=== PATIENT | female | born 1935 | race Caucasian/White ===

== ENCOUNTER 2017-02-20 11:16 | Emergency (ER) | payer MEDICARE, OTHER, MEDICAID ==
--- NOTE | 2017-02-20 13:31 | EDM.PDOC ---
ED HPI GENERAL MEDICAL PROBLEM - General Chief Complaint: General Stated Complaint: EVAULATION FOR HALF-WAY Time Seen by Provider: 02/20/17 11:55 Source of Information: Reports: Patient, Family History Limitations: Reports: No limitations - History of Present Illness INITIAL COMMENTS - FREE TEXT/NARRATIVE: The patient presents for medical clearance for retirement admission. She lives at home with her . He has been trying to care for her along with other family members and other agencies in town. She is not doing well. 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 Dr Cheney is her doctor and he says she is not of sound mind and needs help in the retirement. She has been admitted to [facility] but she needs a medical screening exam. She has no complaints when she arrives. She has no fever, chills, cough , congestion, runny nose, chest pain, shortness of breath, abdominal pain, nausea, vomiting or dysuria. Onset: gradual Duration: Week(s): Improves with: Reports: None Worsens with: Reports: None Associated Symptoms: Reports: no other symptoms - Related Data Allergies Allergy/AdvReac Type Severity Reaction Status Date / Time No Known Allergies Allergy Verified 02/20/17 11:37 Home Meds: Home Meds Lisinopril 10 mg PO DAILY 05/26/16 [History] Pravastatin [Pravachol] 20 mg PO DAILY 05/26/16 [History] Sertraline [Zoloft] 50 mg PO DAILY 05/26/16 [History] Aspirin 81 mg PO DAILY #30 tab.chew 05/27/16 [Rx] Diltiazem [Cardizem CD] 180 mg PO DAILY #30 cap.cd 05/27/16 [Rx] Metoprolol Tartrate [Lopressor] 25 mg PO BID #30 05/27/16 [Rx] Past Medical History Cardiovascular History: Reports: High cholesterol, Hypertension, PVD Respiratory History: Reports: COPD Gastrointestinal History: Reports: Other (see below) Other Gastrointestinal History: incont of stool Genitourinary History: Reports: Other (see below) Other Genitourinary History: Incont of urine 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 OB/BYN History: Confused Musculoskeletal History: Reports: Osteoarthritis Other Neuro History: Patient confused Psychiatric History: Reports: Anxiety, Depression Other Hematologic History: Confused - Past Surgical History Other HEENT Surgeries/Procedures: Patient confused Other GI Surgeries/Procedures: Confused Other Female Surgeries/Procedures: Confused Other Endocrine Surgeries/Procedures: Confused Musculoskeletal Surgical History: Reports: Amputation Other Oncologic Surgeries/Procedures: Confused Social & Family History - Family History Family Medical History: Unobtainable Oncologic: Reports: Prostate - Tobacco Use Smoking Status *Q: Current Some Day Smoker Years of Tobacco use: 60 Packs/Tins Daily: 0.5 - Caffeine Use Caffeine Use: Reports: Coffee Caffeine Use Comment: 2 cups per day - Recreational Drug Use Recreational Drug Use: No - Living Situation & Occupation Living situation: Reports: , with spouse Occupation: retired ED ROS GENERAL - Review of Systems Review Of Systems: See Below Constitutional: Reports: no symptoms HEENT: Reports: No symptoms Respiratory: Reports: No Symptoms ED EXAM, GENERAL - Physical Exam Exam: See Below Exam Limited By: No limitations General Appearance: alert, no apparent distress Ears: normal external exam Nose: normal inspection Head: atraumatic, normocephalic Neck: normal inspection Respiratory/Chest: no respiratory distress, lungs clear, normal breath sounds Cardiovascular: regular rate, rhythm, no edema, no murmur GI/Abdominal: soft, non tender, no organomegaly, no mass Back Exam: normal inspection Extremities: normal inspection Neurological: alert, oriented, no motor/sensory deficits Course - Vital Signs Last Recorded V/S: Last Vital Signs Temp 97.5 F 02/20/17 11:38 Pulse 78 02/20/17 11:38 Resp 16 02/20/17 11:38 BP 195/85 H 02/20/17 11:38 Pulse Ox 97 02/20/17 11:38 - Orders/Labs/Meds Orders: Active Orders 24 hr Category Date Time Status Cardiac Monitoring [RC] . DIRECTED Care 02/20/17 12:07 Active Labs: Laboratory Tests 02/20/17 02/20/17 02/20/17 Range/Units 12:26 12:26 13:40 WBC 6.37 (3.98-10.04) K/mm3 RBC 5.49 H (3.98-5.22) M/mm3 Hgb 17.4 H (11.2-15.7) gm/L Hct 52.3 H (34.1-44.9) % MCV 95.3 H (79.4-94.8) fl MCH 31.7 (25.6-32.2) pg MCHC 33.3 (32.2-35.5) g/dl RDW Std Deviation 48.3 H (36.4-46.3) fL Plt Count 236 (182-369) K/mm3 MPV 11.2 (9.4-12.3) fl Neut % (Auto) 64.6 (34.0-71.1) % Lymph % (Auto) 28.9 (19.3-51.7) % [place] % (Auto) 4.7 (4.7-12.5) % Eos % (Auto) 1.4 (0.7-5.8) Baso % (Auto) 0.2 (0.1-1.2) % Neut # (Auto) 4.12 (1.56-6.13) K/mm3 Lymph # (Auto) 1.84 (1.18-3.74) K/mm3 [place] # (Auto) 0.30 (0.24-0.36) K/mm3 Eos # (Auto) 0.09 (0.04-0.36) K/mm3 Baso # (Auto) 0.01 (0.01-0.08) K/mm3 Sodium 140 (136-145) mEq/L Potassium 4.0 (3.5-5.1) mEq/L Chloride 103 (98-107) mEq/L Carbon Dioxide 29 (21-32) mEq/L Anion Gap 12.0 (5-15) BUN 10 (7-18) mg/dL Creatinine 0.7 (0.55-1.02) mg/dL Est Cr Clr Drug Dosing 51.54 mL/min Estimated GFR (MDRD) > 60 (>60) mL/min BUN/Creatinine Ratio 14.3 (14-18) Glucose 124 H (83-115) mg/dL Calcium 9.3 (8.5-10.1) mg/dL Total Bilirubin 0.5 (0.2-1.0) mg/dL AST 16 (15-37) U/L ALT 18 (14-59) U/L Alkaline Phosphatase 118 H (46-116) U/L Total Protein 7.3 (6.4-8.2) g/dl Albumin 3.6 (3.4-5.0) g/dl Globulin 3.7 gm/dL Albumin/Globulin Ratio 1.0 (1-2) Urine Color Yellow (Yellow) Urine Appearance Clear (Clear) Urine pH 6.0 (5.0-8.0) Ur Specific [place] 1.025 (1.005-1.030) Urine Protein Negative (Negative) Urine Glucose (UA) Negative (Negative) Urine Ketones Negative (Negative) Urine Occult Blood Negative (Negative) Urine Nitrite Negative (Negative) Urine Bilirubin Negative (Negative) Urine Urobilinogen 0.2 (0.2-1.0) Ur Leukocyte Esterase Negative (Negative) Urine RBC 0-5 (0-5) /hpf Urine WBC 0-5 (0-5) /hpf Ur Squamous Epith Cells 0-5 (0-5) /hpf Urine Bacteria Few (FEW) /hpf Urine Mucus Not seen (FEW) /hpf Ethyl Alcohol 0.00 (0.00) gm% - Re-Assessments/Exams Free Text/Narrative Re-Assessment/Exam: 02/20/17 13:55 I ordered some labs. Her CBC and CMP look good. Her ETOH is negative. 02/20/17 14:21 Her UA was negative. She ate some lunch here. I will discharge her to the retirement. Departure - Departure Time of Disposition: 14:25 Disposition: DC/Tfer to Intermediate Care 63 Condition: good Clinical Impression: Failure to thrive in adult Referrals: Eduar Cheney MD [Primary Care Provider] - Forms: ED Department Discharge Additional Instructions: A medical screening exam was done and your labs look good. You are medically cleared to go to [facility]. Please return if you have any other complaints or follow up with Dr Cheney. - My Orders Last 24 Hours: My Active Orders 02/20/17 12:07 Cardiac Monitoring [RC] . DIRECTED - Assessment/Plan Last 24 Hours: My Active Orders 02/20/17 12:07 Cardiac Monitoring [RC] . DIRECTED
[2017-02-20 14:44] VITALS: BP 144/81
== END 2017-02-20 14:45 ==
LOC: JD.ED 11:16
DX: Z02.2 Encounter for examination for admission to residential institution (principal); I10 Essential (primary) hypertension; E78.00 Pure hypercholesterolemia, unspecified; J44.9 Chronic obstructive pulmonary disease, unspecified; R15.9 Full incontinence of feces; R32 Unspecified urinary incontinence; M19.90 Unspecified osteoarthritis, unspecified site; R41.0 Disorientation, unspecified; F32.9 Major depressive disorder, single episode, unspecified; F41.9 Anxiety disorder, unspecified; Z79.82 Long term (current) use of aspirin; Z79.899 Other long term (current) drug therapy; F17.200 Nicotine dependence, unspecified, uncomplicated; Z89.611 Acquired absence of right leg above knee; R62.7 Adult failure to thrive
CPT/HCPCS: 36415; 80053; 81001; 85025; 99284; G0480; P9612; 99282; 99285-25

== ENCOUNTER 2017-05-22 11:23 | Emergency (ER) | payer MEDICARE, OTHER, MEDICAID ==
[2017-05-22 11:32] VITALS: BP 169/92
[2017-05-22] MEDS ORDERED: Aspirin 81 MG Tab.Chew PO ONE (11:41)
--- NOTE | 2017-05-22 12:18 | EDM.PDOC ---
ED HPI GENERAL MEDICAL PROBLEM - General Chief Complaint: Chest Pain Stated Complaint: [facility] Time Seen by Provider: 05/22/17 11:24 - History of Present Illness INITIAL COMMENTS - FREE TEXT/NARRATIVE: The patient is a 81-year-old female, [facility] resident, with a history of dementia, who was brought in by ambulance for an episode of chest pain. The patient does not recall ever having had chest pain. However according to EMS report, the patient was complaining of some chest pain this morning which prompted her being brought to the emergency department for evaluation. The patient states that she feels completely fine. She denies chest pain. No shortness of breath. No abdominal pain, nausea, vomiting, recent illness, recent injury. No lower extremity pain or swelling. She has no complaints and says she feels fine. However, she does have a history of dementia and while she is answering questions here appropriately I don't know how good her short-term memory is. Unable to obtain further history from the patient at this time due to this. - Related Data Allergies Allergy/AdvReac Type Severity Reaction Status Date / Time No Known Allergies Allergy Verified 02/20/17 11:37 Home Meds: Home Meds Lisinopril 10 mg PO DAILY 05/26/16 [History] Aspirin 81 mg PO DAILY #30 tab.chew 05/27/16 [Rx] Diltiazem [Cardizem CD] 180 mg PO DAILY #30 cap.cd 05/27/16 [Rx] Metoprolol Tartrate [Lopressor] 25 mg PO BID #30 05/27/16 [Rx] Acetaminophen [Tylenol Extra Strength] 1,000 mg PO Q6H PRN 05/22/17 [History] Carbamide Peroxide [Debrox 6.5% Otic Soln] 1 drop EARBOTH BID 05/22/17 [History] Lactose-Reduced Food [Boost] 2 oz PO TID 05/22/17 [History] Memantine HCl [Namenda] 5 mg PO BEDTIME 05/22/17 [History] Omeprazole 20 mg PO DAILY 05/22/17 [History] Past Medical History Cardiovascular History: Reports: High Cholesterol, Hypertension, PVD Respiratory History: Reports: COPD Gastrointestinal History: Reports: Other (See Below) Other Gastrointestinal History: incont of stool Genitourinary History: Reports: Other (See Below) Other Genitourinary History: Incont of urine 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 Musculoskeletal History: Reports: Osteoarthritis Other Neuro History: Patient confused Psychiatric History: Reports: Anxiety, Depression Other Hematologic History: Confused - Past Surgical History Other HEENT Surgeries/Procedures: Patient confused Other Endocrine Surgeries/Procedures: Confused Musculoskeletal Surgical History: Reports: Amputation Other Oncologic Surgeries/Procedures: Confused Social & Family History - Family History Family Medical History: Unobtainable Oncologic: Reports: Prostate - Tobacco Use Smoking Status *Q: Current Status Unknown Years of Tobacco use: 60 Packs/Tins Daily: 0.5 Second Hand Smoke Exposure: No - Caffeine Use Caffeine Use: Reports: None Caffeine Use Comment: 2 cups per day - Recreational Drug Use Recreational Drug Use: No - Living Situation & Occupation Living situation: Reports: , with Spouse Occupation: Retired ED ROS GENERAL - Review of Systems Review Of Systems: Unable To Obtain (may be limited by alzheimer's. patient answers questions but I'm not sure she remembers if she's had recent symptoms) Constitutional: Denies: Fever HEENT: Reports: No Symptoms Respiratory: Denies: Cough Cardiovascular: Denies: Edema Endocrine: Reports: No Symptoms GI/Abdominal: Denies: Abdominal Pain, Nausea Musculoskeletal: Reports: No Symptoms Skin: Reports: No Symptoms Neurological: Denies: Syncope ED EXAM, GENERAL - Physical Exam Exam: See Below Exam Limited By: No Limitations General Appearance: Alert, WD/WN, No Apparent Distress, Other (pleasantly confused) Eye Exam: Bilateral Eye: PERRL Ears: Normal External Exam Nose: Normal Inspection, Normal Mucosa, No Blood Throat/Mouth: Normal Inspection, Normal Voice, No Airway Compromise Head: Atraumatic, Normocephalic Neck: Normal Inspection, Supple, Non-Tender Respiratory/Chest: No Respiratory Distress, Lungs Clear, Normal Breath Sounds, No Accessory Muscle Use, Chest Non-Tender Cardiovascular: Normal Peripheral Pulses, Regular Rate, Rhythm, No Edema, No Murmur Peripheral Pulses: 2+: Radial (L) GI/Abdominal: Soft, Non-Tender, No Distention. No: Rebound Extremities: Other (R AKA) Neurological: Alert, No Motor/Sensory Deficits, Other (pleasantly confused, but answers questions appropriately) Psychiatric: Normal Affect, Normal Mood Skin Exam: Warm, Dry, Intact, Normal Color, No Rash Course - Vital Signs Last Recorded V/S: Last Vital Signs Temp 36.3 C 05/22/17 11:30 Pulse 84 05/22/17 11:30 Resp 18 05/22/17 11:30 BP 169/92 H 05/22/17 11:30 Pulse Ox 93 L 05/22/17 11:30 - Orders/Labs/Meds Orders: Active Orders 24 hr Category Date Time Status EKG 12 Lead [EKG Documentation Completion] [RC] STAT Care 05/22/17 11:55 Active Oxygen Therapy Adult [Oxygen Therapy] [RC] ASDIRECTED Care 05/22/17 11:55 Active Chest 1V Frontal [CR] Stat Exams 05/22/17 11:41 Taken Labs: Laboratory Tests 05/22/17 05/22/17 05/22/17 Range/Units 12:00 12:00 14:40 WBC 7.69 (3.98-10.04) K/mm3 RBC 4.95 (3.98-5.22) M/mm3 Hgb 14.9 (11.2-15.7) gm/L Hct 45.0 H (34.1-44.9) % MCV 90.9 (79.4-94.8) fl MCH 30.1 (25.6-32.2) pg MCHC 33.1 (32.2-35.5) g/dl RDW Std Deviation 41.1 (36.4-46.3) fL Plt Count 250 (182-369) K/mm3 MPV 11.6 (9.4-12.3) fl Neut % (Auto) 75.7 H (34.0-71.1) % Lymph % (Auto) 18.2 L (19.3-51.7) % [place] % (Auto) 4.3 L (4.7-12.5) % Eos % (Auto) 1.4 (0.7-5.8) Baso % (Auto) 0.3 (0.1-1.2) % Neut # (Auto) 5.82 (1.56-6.13) K/mm3 Lymph # (Auto) 1.40 (1.18-3.74) K/mm3 [place] # (Auto) 0.33 (0.24-0.36) K/mm3 Eos # (Auto) 0.11 (0.04-0.36) K/mm3 Baso # (Auto) 0.02 (0.01-0.08) K/mm3 Sodium 135 L (136-145) mEq/L Potassium 4.4 (3.5-5.1) mEq/L Chloride 101 (98-107) mEq/L Carbon Dioxide 32 (21-32) mEq/L Anion Gap 6.4 (5-15) BUN 17 (7-18) mg/dL Creatinine 0.9 (0.55-1.02) mg/dL Est Cr Clr Drug Dosing 43.77 mL/min Estimated GFR (MDRD) > 60 (>60) mL/min BUN/Creatinine Ratio 18.9 H (14-18) Glucose 197 H (83-115) mg/dL Calcium 9.4 (8.5-10.1) mg/dL Total Bilirubin 0.2 (0.2-1.0) mg/dL AST 16 (15-37) U/L ALT 21 (14-59) U/L Alkaline Phosphatase 112 (46-116) U/L Troponin I < 0.017 0.021 (0.00-0.056) ng/mL Total Protein 7.2 (6.4-8.2) g/dl Albumin 3.4 (3.4-5.0) g/dl Globulin 3.8 gm/dL Albumin/Globulin Ratio 0.9 L (1-2) Meds: Medications Discontinued Medications Generic Name Dose Route Start Last Admin Trade Name Freq PRN Reason Stop Dose Admin Aspirin 324 mg 05/22/17 11:41 05/22/17 12:02 Aspirin PO 05/22/17 11:42 324 mg ONETIME ONE Administration - Re-Assessments/Exams Free Text/Narrative Re-Assessment/Exam: 05/22/17 13:45 EKG shows normal sinus rhythm, T-wave inversions in leads 2, 3, and aVL, also has subtle ST depression in the lateral leads, no ST elevation. These changes are new compared to prior. Her first troponin is negative. Repeat EKG was similar, no ST elevation. Patient continues to be chest pain-free. We will observe her in the emergency department and continue serial troponins and EKGs for now. 05/22/17 15:21 Patient has been asymptomatic throughout ED stay. Repeat trop neg. Will [facility] with plan for PCP f/u for further care. Departure - Departure Time of Disposition: 15:22 Disposition: Home, Self-Care 01 Clinical Impression: Chest pain Qualifiers: Chest pain type: unspecified Qualified Code(s): R07.9 - Chest pain, unspecified Forms: ED Department Discharge Additional Instructions: 1. Follow up with your primary doctor within a week 2. Return to the Emergency Department if you have any further chest pain, shortness of breath, or other concerning symptoms - My Orders Last 24 Hours: My Active Orders 05/22/17 11:41 Chest 1V Frontal [CR] Stat 05/22/17 11:55 EKG 12 Lead [EKG Documentation Completion] [RC] STAT Oxygen Therapy Adult [Oxygen Therapy] [RC] ASDIRECTED - Assessment/Plan Last 24 Hours: My Active Orders 05/22/17 11:41 Chest 1V Frontal [CR] Stat 05/22/17 11:55 EKG 12 Lead [EKG Documentation Completion] [RC] STAT Oxygen Therapy Adult [Oxygen Therapy] [RC] ASDIRECTED
--- NOTE | 2017-05-23 12:13 | CR ---
Chest: Portable view of the chest was obtained. Comparison: Previous chest x-ray of 07/07/16. Heart size and mediastinum are within normal limits. Lungs are clear with no acute infiltrates. Surgical clips are noted over the right upper lung. Bony structures are osteopenic. Impression: 1. Incidental findings. Nothing acute is identified on portable chest x-ray. Diagnostic code #2
== END 2017-05-22 15:30 | disposition home or self-care (01) ==
LOC: SUPCPDRO 11:23 → JD.ED 11:23
DX: R07.9 Chest pain, unspecified (principal); I10 Essential (primary) hypertension; E78.00 Pure hypercholesterolemia, unspecified; M19.90 Unspecified osteoarthritis, unspecified site; Z79.82 Long term (current) use of aspirin; Z79.899 Other long term (current) drug therapy
CPT/HCPCS: 36415; 71010; 80053; 84484; 85025; 93005; 99285; A9270; 99283

== ENCOUNTER 2017-05-30 10:30 | Emergency (ER) | payer MEDICARE, OTHER, MEDICAID ==
[2017-05-30 10:41] VITALS: BP 160/52
[2017-05-30] MEDS ORDERED: Sodium Chloride 0.9% 10 ML Syringe FLUSH PRN (10:54)
--- NOTE | 2017-05-30 10:56 | EDM.PDOC ---
ED HPI GENERAL MEDICAL PROBLEM - General Chief Complaint: Chest Pain Stated Complaint: [facility] Time Seen by Provider: 05/30/17 10:45 Source of Information: Reports: Patient, RN Notes Reviewed - History of Present Illness INITIAL COMMENTS - FREE TEXT/NARRATIVE: 81 year old female sent here from detention. Had short episode of lower achy chest discomfort radiating toward R shoulder. She was given ntg times 3. I did not hear from EMS how she was on their arrival to [place] but on arrival to ED her pain was gone. She denies abd pain, nauea or vomtiing. Not coughing, no fever or chills. She does have hx of Htn, a fib., COPD, mild dementia. Chest Pain Score (Numeric/FACES): 0 - Related Data Allergies Allergy/AdvReac Type Severity Reaction Status Date / Time No Known Allergies Allergy Verified 05/30/17 10:37 Home Meds: Home Meds Lisinopril 10 mg PO DAILY 05/26/16 [History] Aspirin 81 mg PO DAILY #30 tab.chew 05/27/16 [Rx] Diltiazem [Cardizem CD] 180 mg PO DAILY #30 cap.cd 05/27/16 [Rx] Metoprolol Tartrate [Lopressor] 25 mg PO BID #30 05/27/16 [Rx] Acetaminophen [Tylenol Extra Strength] 1,000 mg PO Q6H PRN 05/22/17 [History] Carbamide Peroxide [Debrox 6.5% Otic Soln] 1 drop EARBOTH BID 05/22/17 [History] Lactose-Reduced Food [Boost] 2 oz PO TID 05/22/17 [History] Memantine HCl [Namenda] 5 mg PO BEDTIME 05/22/17 [History] Omeprazole 20 mg PO DAILY 05/22/17 [History] Past Medical History Cardiovascular History: Reports: High Cholesterol, Hypertension, PVD Respiratory History: Reports: COPD Gastrointestinal History: Reports: Other (See Below) Other Gastrointestinal History: incont of stool Genitourinary History: Reports: Other (See Below) Other Genitourinary History: Incont of urine 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 Musculoskeletal History: Reports: Osteoarthritis Other Neuro History: Patient confused Psychiatric History: Reports: Anxiety, Depression Other Hematologic History: Confused - Past Surgical History Other HEENT Surgeries/Procedures: Patient confused Other Endocrine Surgeries/Procedures: Confused Musculoskeletal Surgical History: Reports: Amputation Other Oncologic Surgeries/Procedures: Confused Social & Family History - Family History Family Medical History: Unobtainable Oncologic: Reports: Prostate - Tobacco Use Smoking Status *Q: Unknown Ever Smoked Years of Tobacco use: 60 Packs/Tins Daily: 0.5 Second Hand Smoke Exposure: No - Caffeine Use Caffeine Use: Reports: None Caffeine Use Comment: 2 cups per day - Recreational Drug Use Recreational Drug Use: No - Living Situation & Occupation Living situation: Reports: , with Spouse Occupation: Retired ED ROS GENERAL - Review of Systems Review Of Systems: See Below Constitutional: Denies: Fever, Chills, Diaphoresis HEENT: Reports: No Symptoms Respiratory: Denies: Shortness of Breath, Wheezing, Cough Cardiovascular: Reports: Chest Pain GI/Abdominal: Denies: Abdominal Pain, Nausea, Vomiting Musculoskeletal: Reports: Shoulder Pain. Denies: Arm Pain Skin: Reports: No Symptoms Neurological: Denies: Numbness, Tingling, Trouble Speaking, Weakness ED EXAM, GENERAL - Physical Exam Exam: See Below General Appearance: Alert, No Apparent Distress Eye Exam: Bilateral Eye: PERRL Throat/Mouth: Normal Inspection, Normal Oropharynx Neck: Supple Respiratory/Chest: No Respiratory Distress, Lungs Clear, Normal Breath Sounds, No Accessory Muscle Use. No: Rhonchi, Wheezing Cardiovascular: Regular Rate, Rhythm GI/Abdominal: Soft, Non-Tender Extremities: Normal Inspection, Normal Range of Motion. No: Pedal Edema, Leg Pain Neurological: Alert, Oriented, No Motor/Sensory Deficits Skin Exam: Warm, Dry, Normal Color EKG INTERPRETATION Rhythm: NSR [place]: Normal P-Wave: Present QRS: Normal ST-T: Depressed (T wave inversions III, AVF, V5 and V6.) Course - Vital Signs Last Recorded V/S: Last Vital Signs Temp 97.8 F 05/30/17 10:37 Pulse 70 05/30/17 10:37 Resp 20 05/30/17 10:37 BP 160/52 H 05/30/17 10:37 Pulse Ox 95 05/30/17 10:37 - Orders/Labs/Meds Orders: Active Orders 24 hr Category Date Time Status EKG 12 Lead [EKG Documentation Completion] [RC] STAT Care 05/30/17 10:55 Active Peripheral IV Care [RC] . DIRECTED Care 05/30/17 10:55 Active Chest 1V Frontal [CR] Stat Exams 05/30/17 10:55 Taken Sodium Chloride 0.9% [Saline Flush] Med 05/30/17 10:54 Active 10 ml FLUSH ASDIRECTED PRN Peripheral IV Insertion Adult [OM.PC] Stat Oth 05/30/17 10:55 Ordered Medication Orders Sodium Chloride (Saline Flush) 10 ml FLUSH ASDIRECTED PRN PRN Reason: Keep Vein Open Last Admin: 05/30/17 11:08 Dose: 10 ml Labs: Laboratory Tests 05/30/17 05/30/17 05/30/17 Range/Units 10:39 10:39 10:39 WBC 8.62 (3.98-10.04) K/mm3 RBC 4.92 (3.98-5.22) M/mm3 Hgb 15.0 (11.2-15.7) gm/L Hct 44.1 (34.1-44.9) % MCV 89.6 (79.4-94.8) fl MCH 30.5 (25.6-32.2) pg MCHC 34.0 (32.2-35.5) g/dl RDW Std Deviation 41.4 (36.4-46.3) fL Plt Count 272 (182-369) K/mm3 MPV 11.8 (9.4-12.3) fl Neut % (Auto) 77.5 H (34.0-71.1) % Lymph % (Auto) 15.4 L (19.3-51.7) % [place] % (Auto) 5.2 (4.7-12.5) % Eos % (Auto) 1.5 (0.7-5.8) Baso % (Auto) 0.2 (0.1-1.2) % Neut # (Auto) 6.67 H (1.56-6.13) K/mm3 Lymph # (Auto) 1.33 (1.18-3.74) K/mm3 [place] # (Auto) 0.45 H (0.24-0.36) K/mm3 Eos # (Auto) 0.13 (0.04-0.36) K/mm3 Baso # (Auto) 0.02 (0.01-0.08) K/mm3 Sodium 135 L (136-145) mEq/L Potassium 4.2 (3.5-5.1) mEq/L Chloride 98 (98-107) mEq/L Carbon Dioxide 29 (21-32) mEq/L Anion Gap 12.2 (5-15) BUN 18 (7-18) mg/dL Creatinine 0.9 (0.55-1.02) mg/dL Est Cr Clr Drug Dosing 40.09 mL/min Estimated GFR (MDRD) > 60 (>60) mL/min BUN/Creatinine Ratio 20.0 H (14-18) Glucose 206 H (83-115) mg/dL Calcium 9.2 (8.5-10.1) mg/dL Total Bilirubin 0.3 (0.2-1.0) mg/dL AST 17 (15-37) U/L ALT 24 (14-59) U/L Alkaline Phosphatase 105 (46-116) U/L Troponin I < 0.017 (0.00-0.056) ng/mL B-Natriuretic Peptide 445 H (0-100) pg/mL Total Protein 7.4 (6.4-8.2) g/dl Albumin 3.4 (3.4-5.0) g/dl Globulin 4.0 gm/dL Albumin/Globulin Ratio 0.9 L (1-2) Meds: Medications Generic Name Dose Route Start Last Admin Trade Name Freq PRN Reason Stop Dose Admin Sodium Chloride 10 ml 05/30/17 10:54 05/30/17 11:08 Saline Flush FLUSH 10 ml ASDIRECTED PRN Administration Keep Vein Open - Re-Assessments/Exams Free Text/Narrative Re-Assessment/Exam: 05/30/17 13:22 Patient continued pain free while here in the ED, trop. did come back normal, CXR good, have discharged back to the [place]. Departure - Departure Time of Disposition: 12:30 Disposition: Home, Self-Care 01 Condition: Fair Clinical Impression: Chest pain, atypical Instructions: Nonspecific Chest Pain, [id number] Referrals: Eduar Cheney MD [Primary Care Provider] - Forms: ED Department Discharge Additional Instructions: Cardiac workup today is good, EKG did not show acute findings, troponin was normal. Chest x-ray looked good. Patient has been pain-free while resting here in the ED for over 2 hours. Continue present care. Call or have her see her medical provider as needed, return to ED as needed - My Orders Last 24 Hours: My Active Orders 05/30/17 10:54 Sodium Chloride 0.9% [Saline Flush] 10 ml FLUSH ASDIRECTED PRN 05/30/17 10:55 EKG 12 Lead [EKG Documentation Completion] [RC] STAT Peripheral IV Care [RC] . DIRECTED Chest 1V Frontal [CR] Stat Peripheral IV Insertion Adult [OM.PC] Stat - Assessment/Plan Last 24 Hours: My Active Orders 05/30/17 10:54 Sodium Chloride 0.9% [Saline Flush] 10 ml FLUSH ASDIRECTED PRN 05/30/17 10:55 EKG 12 Lead [EKG Documentation Completion] [RC] STAT Peripheral IV Care [RC] . DIRECTED Chest 1V Frontal [CR] Stat Peripheral IV Insertion Adult [OM.PC] Stat
--- NOTE | 2017-05-31 06:51 | CR ---
Chest: Portable view of the chest was obtained. Comparison: Previous chest x-ray of 05/22/17. Heart size and mediastinum are within normal limits. Surgical clips are seen overlying the right upper chest. Lungs are clear with no acute infiltrates. Bony structures are grossly intact. Impression: 1. Incidental findings. Nothing acute is identified on frontal chest x-ray. Diagnostic code #2
== END 2017-05-30 14:06 | disposition home or self-care (01) ==
LOC: JD.ED 10:30
DX: R07.89 Other chest pain (principal); I10 Essential (primary) hypertension; E78.00 Pure hypercholesterolemia, unspecified; J44.9 Chronic obstructive pulmonary disease, unspecified; M19.90 Unspecified osteoarthritis, unspecified site; F41.9 Anxiety disorder, unspecified; F32.9 Major depressive disorder, single episode, unspecified; Z79.82 Long term (current) use of aspirin; Z79.899 Other long term (current) drug therapy
CPT/HCPCS: 36415; 71010; 80053; 83880; 84484; 85025; 93005; 99285; J7050; 99284

== ENCOUNTER 2019-10-31 09:02 | Inpatient (IN) | payer MEDICARE, OTHER, MEDICAID ==
[2019-10-31] MEDS ORDERED: Sodium Chloride 0.9% 1,000 ML IV ONE (09:17)
[2019-10-31] MEDS ORDERED: Sodium Chloride 0.9% 10 ML Syringe FLUSH PRN (09:17)
--- NOTE | 2019-10-31 09:39 | EDM.PDOC ---
ED HPI GENERAL MEDICAL PROBLEM - General Chief Complaint: Respiratory Problem Stated Complaint: [facility] Time Seen by Provider: 10/31/19 09:14 Source of Information: Reports: Patient, EMS, RN Notes Reviewed - History of Present Illness INITIAL COMMENTS - FREE TEXT/NARRATIVE: 84-year-old female has been brought by [facility] from shelter for evaluation of fever, dyspnea, altered mental status. The history we are obtaining is that this all became apparent this morning. At this time we do not know what her status was yesterday. Family is not present at this time to give further history. Patient does follow simple commands but is not answering questions for me to provide further history. She has hx dementia, COPD, Htn., amputationa RLE, peripheral vascular disease. 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, Other (see below) Other Treatments ASTROPHYSICS TEACHER: IV fluids - Related Data Allergies Allergy/AdvReac Type Severity Reaction Status Date / Time No Known Allergies Allergy Verified 05/30/17 10:37 Home Meds: Home Meds Lisinopril 10 mg PO DAILY 05/26/16 [History] Aspirin 81 mg PO DAILY #30 tab.chew 05/27/16 [Rx] Acetaminophen [Tylenol Extra Strength] 650 mg PO Q6H PRN 05/22/17 [History] Memantine HCl [Namenda] 5 mg PO BID 05/22/17 [History] Bisacodyl [Laxative Suppository] 10 mg RECTAL DAILY PRN 10/31/19 [History] Diltiazem [Cardizem CD] 240 mg PO DAILY 10/31/19 [History] Furosemide [Lasix] 40 mg PO DAILY 10/31/19 [History] Metoprolol Tartrate [Lopressor] 12.5 mg PO BID 10/31/19 [History] Pravastatin [Pravachol] 20 mg PO DAILY 10/31/19 [History] Sertraline [Zoloft] 50 mg PO BEDTIME 10/31/19 [History] Past Medical History Cardiovascular History: Reports: High Cholesterol, Hypertension, PVD Respiratory History: Reports: COPD Gastrointestinal History: Reports: Other (See Below) Other Gastrointestinal History: incont of stool Genitourinary History: Reports: Other (See Below) Other Genitourinary History: Incont of urine 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 SEALING 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 TANK REPAIRER History: Confused Musculoskeletal History: Reports: Osteoarthritis Other Neuro History: Patient confused Psychiatric History: Reports: Anxiety, Depression Other Hematologic History: Confused - Past Surgical History Other HEENT Surgeries/Procedures: Patient confused Other Endocrine Surgeries/Procedures: Confused Musculoskeletal Surgical History: Reports: Amputation Other Oncologic Surgeries/Procedures: Confused Social & Family History - Family History Family Medical History: Unobtainable Oncologic: Reports: Prostate - Tobacco Use Smoking Status *Q: Never Smoker - Caffeine Use Caffeine Use: Reports: None Caffeine Use Comment: 2 cups per day - Living Situation & Occupation Living situation: Reports: , with Spouse Occupation: Retired ED ROS GENERAL - Review of Systems Review Of Systems: Unable To Obtain Reason Not Obtained: Altered mental status ED EXAM, GENERAL - Physical Exam Exam: See Below Exam Limited By: Altered Mental Status General Appearance: Other (Patient is very drowsy, opens eyes when spoken to but not answering questions for me at time of initial exam) Eye Exam: Bilateral Eye: PERRL Throat/Mouth: Other (Oral mucosa very dry, patient has been mouth breathing) Head: No: Facial Swelling Neck: Supple, Other (No JVD) Respiratory/Chest: Respiratory Distress (Moderate tachypnea), Rales (Mild rales bilateral lower lung tian). No: Rhonchi, Wheezing Cardiovascular: Regular Rate, Rhythm GI/Abdominal: Soft, Tender (Mccurdy to have mild tenderness mid abdomen and left abdomen). 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, left leg not edematous warm or erythematous.) Neurological: Other (Patient very drowsy, does open eyes when spoken to but not answering questions for me, she did squeeze fingers bilateral hands on command) Skin Exam: Warm, Dry, No Rash Course - Vital Signs Last Recorded V/S: Last Vital Signs Temp 100.0 F 10/31/19 09:07 Pulse 78 10/31/19 11:40 Resp 22 H 10/31/19 11:40 BP 116/97 H 10/31/19 11:40 Pulse Ox 94 L 10/31/19 11:40 - Orders/Labs/Meds Orders: Active Orders 24 hr Category Date Time Status EKG 12 Lead [EKG Documentation Completion] [RC] STAT Care 10/31/19 09:39 Active Insert Love Catheter [Insert Urinary Catheter] [OM.PC] Care 10/31/19 11:00 Ordered Q24H Urinary Catheter Assessment [RC] ASDIRECTED Care 10/31/19 10:48 Active Chest 2V [CR] Stat Exams 10/31/19 09:18 Taken CULTURE BLOOD [BC] Stat Lab 10/31/19 09:35 Received CULTURE BLOOD [BC] Stat Lab 10/31/19 09:55 Received GLUCOSE RANDOM [CHEM] Routine Lab 10/31/19 12:10 Ordered LACTIC ACID [CHEM] Routine Lab 10/31/19 12:09 Ordered Lactated Ringers [Ringers, Lactated] 1,000 ml Med 10/31/19 10:30 Active IV ASDIRECTED Lactated Ringers [Ringers, Lactated] 1,000 ml Med 10/31/19 11:45 Active IV ASDIRECTED Sodium Chloride 0.9% [Saline Flush] Med 10/31/19 09:17 Active 10 ml FLUSH ASDIRECTED PRN Blood Culture x2 Reflex Set [OM.PC] Stat Oth 10/31/19 09:18 Ordered Saline Lock Insert [OM.PC] Stat Oth 10/31/19 09:18 Ordered Severe Sepsis Onset Time [OM.PC] Stat Oth 10/31/19 09:18 Ordered Medication Orders Lactated Ringer's (Ringers, Lactated) 1,000 mls @ 999 mls/hr IV ASDIRECTED CORRIE Last Admin: 10/31/19 10:47 Dose: 999 mls/hr Lactated Ringer's (Ringers, Lactated) 1,000 mls @ 150 mls/hr IV ASDIRECTED CORRIE Last Admin: 10/31/19 11:39 Dose: 150 mls/hr Sodium Chloride (Saline Flush) 10 ml FLUSH ASDIRECTED PRN PRN Reason: Keep Vein Open Last Admin: 10/31/19 09:31 Dose: 10 ml Labs: Laboratory Tests 10/31/19 10/31/19 10/31/19 Range/Units 09:35 09:35 09:35 WBC 16.69 H (3.98-10.04) K/mm3 RBC 5.28 H (3.98-5.22) M/mm3 Hgb 15.6 (11.2-15.7) gm/dl Hct 52.2 H (34.1-44.9) % MCV 98.9 H D (79.4-94.8) fl MCH 29.5 (25.6-32.2) pg MCHC 29.9 L (32.2-35.5) g/dl RDW Std Deviation 53.5 H (36.4-46.3) fL Plt Count 304 (182-369) K/mm3 MPV 13.9 H (9.4-12.3) fl Neutrophils % (Manual) 84 H (40-60) % Band Neutrophils % 0 (0-10) % Lymphocytes % (Manual) 16 L (20-40) % Atypical Lymphs % 0 % Monocytes % (Manual) 0 L (2-10) % Eosinophils % (Manual) 0 L (0.7-5.8) % Basophils % (Manual) 0 L (0.1-1.2) Platelet Estimate Adequate Hypochromasia 2+ moderate Target Cells 1+ slight Tear Drop Cells 1+ slight RBC Morph Comment Not Reportable PT 11.4 (9.7-12.0) SECONDS INR 1.05 Puncture Site ABG pH (7.35-7.45) ABG pCO2 (35.0-45.0) mmHg ABG pO2 (80.0-100.0) mmHg ABG HCO3 (22.0-26.0) meq/L ABG O2 Saturation (96.0-97.0) % ABG Base Excess (-2-2.0) Efrem Test A-a Gradient mmHg O2 Delivery Device Oxygen Flow Rate FiO2 (21.00-100.00) % Sodium 152 H D (136-145) mEq/L Potassium 4.0 (3.5-5.1) mEq/L Chloride 106 (98-107) mEq/L Carbon Dioxide 33 H (21-32) mEq/L Anion Gap 17.0 H (5-15) BUN 83 H D (7-18) mg/dL Creatinine 3.1 H D (0.55-1.02) mg/dL Est Cr Clr Drug Dosing 11.07 mL/min Estimated GFR (MDRD) 14 (>60) mL/min BUN/Creatinine Ratio 26.8 H (14-18) Glucose 923 H* (83-115) mg/dL Lactic Acid (0.4-2.0) mmol/L Calcium 9.6 (8.5-10.1) mg/dL Total Bilirubin 0.4 (0.2-1.0) mg/dL AST 28 (15-37) U/L ALT 35 (14-59) U/L Alkaline Phosphatase 112 (46-116) U/L C-Reactive Protein 1.8 H* (<1.0) mg/dL NT-Pro-B Natriuret Pep (0-450) pg/mL Total Protein 8.1 (6.4-8.2) g/dl Albumin 3.6 (3.4-5.0) g/dl Globulin 4.5 gm/dL Albumin/Globulin Ratio 0.8 L (1-2) Urine Color (Yellow) Urine Appearance (Clear) Urine pH (5.0-8.0) Ur Specific [place] (1.005-1.030) Urine Protein (Negative) Urine Glucose (UA) (Negative) Urine Ketones (Negative) Urine Occult Blood (Negative) Urine Nitrite (Negative) Urine Bilirubin (Negative) Urine Urobilinogen (0.2-1.0) Ur Leukocyte Esterase (Negative) Ketones (0.0-0.3) mM 10/31/19 10/31/19 10/31/19 Range/Units 09:35 09:35 09:35 WBC (3.98-10.04) K/mm3 RBC (3.98-5.22) M/mm3 Hgb (11.2-15.7) gm/dl Hct (34.1-44.9) % MCV (79.4-94.8) fl MCH (25.6-32.2) pg MCHC (32.2-35.5) g/dl RDW Std Deviation (36.4-46.3) fL Plt Count (182-369) K/mm3 MPV (9.4-12.3) fl Neutrophils % (Manual) (40-60) % Band Neutrophils % (0-10) % Lymphocytes % (Manual) (20-40) % Atypical Lymphs % % Monocytes % (Manual) (2-10) % Eosinophils % (Manual) (0.7-5.8) % Basophils % (Manual) (0.1-1.2) Platelet Estimate Hypochromasia Target Cells Tear Drop Cells RBC Morph Comment PT (9.7-12.0) SECONDS INR Puncture Site ABG pH (7.35-7.45) ABG pCO2 (35.0-45.0) mmHg ABG pO2 (80.0-100.0) mmHg ABG HCO3 (22.0-26.0) meq/L ABG O2 Saturation (96.0-97.0) % ABG Base Excess (-2-2.0) Efrem Test A-a Gradient mmHg O2 Delivery Device Oxygen Flow Rate FiO2 (21.00-100.00) % Sodium (136-145) mEq/L Potassium (3.5-5.1) mEq/L Chloride (98-107) mEq/L Carbon Dioxide (21-32) mEq/L Anion Gap (5-15) BUN (7-18) mg/dL Creatinine (0.55-1.02) mg/dL Est Cr Clr Drug Dosing mL/min Estimated GFR (MDRD) (>60) mL/min BUN/Creatinine Ratio (14-18) Glucose (83-115) mg/dL Lactic Acid 2.4 H* (0.4-2.0) mmol/L Calcium (8.5-10.1) mg/dL Total Bilirubin (0.2-1.0) mg/dL AST (15-37) U/L ALT (14-59) U/L Alkaline Phosphatase (46-116) U/L C-Reactive Protein (<1.0) mg/dL NT-Pro-B Natriuret Pep 2474 H (0-450) pg/mL Total Protein (6.4-8.2) g/dl Albumin (3.4-5.0) g/dl Globulin gm/dL Albumin/Globulin Ratio (1-2) Urine Color (Yellow) Urine Appearance (Clear) Urine pH (5.0-8.0) Ur Specific [place] (1.005-1.030) Urine Protein (Negative) Urine Glucose (UA) (Negative) Urine Ketones (Negative) Urine Occult Blood (Negative) Urine Nitrite (Negative) Urine Bilirubin (Negative) Urine Urobilinogen (0.2-1.0) Ur Leukocyte Esterase (Negative) Ketones 1.6 (0.0-0.3) mM 10/31/19 10/31/19 Range/Units 10:49 11:38 WBC (3.98-10.04) K/mm3 RBC (3.98-5.22) M/mm3 Hgb (11.2-15.7) gm/dl Hct (34.1-44.9) % MCV (79.4-94.8) fl MCH (25.6-32.2) pg MCHC (32.2-35.5) g/dl RDW Std Deviation (36.4-46.3) fL Plt Count (182-369) K/mm3 MPV (9.4-12.3) fl Neutrophils % (Manual) (40-60) % Band Neutrophils % (0-10) % Lymphocytes % (Manual) (20-40) % Atypical Lymphs % % Monocytes % (Manual) (2-10) % Eosinophils % (Manual) (0.7-5.8) % Basophils % (Manual) (0.1-1.2) Platelet Estimate Hypochromasia Target Cells Tear Drop Cells RBC Morph Comment PT (9.7-12.0) SECONDS INR Puncture Site Rt radial ABG pH 7.32 L (7.35-7.45) ABG pCO2 60.9 H (35.0-45.0) mmHg ABG pO2 83.0 (80.0-100.0) mmHg ABG HCO3 30.3 H (22.0-26.0) meq/L ABG O2 Saturation 95.6 L (96.0-97.0) % ABG Base Excess 3.0 H (-2-2.0) Efrem Test Positive A-a Gradient 213 mmHg O2 Delivery Device Simple mask Oxygen Flow Rate 8.0 FiO2 52.00 (21.00-100.00) % Sodium (136-145) mEq/L Potassium (3.5-5.1) mEq/L Chloride (98-107) mEq/L Carbon Dioxide (21-32) mEq/L Anion Gap (5-15) BUN (7-18) mg/dL Creatinine (0.55-1.02) mg/dL Est Cr Clr Drug Dosing mL/min Estimated GFR (MDRD) (>60) mL/min BUN/Creatinine Ratio (14-18) Glucose (83-115) mg/dL Lactic Acid (0.4-2.0) mmol/L Calcium (8.5-10.1) mg/dL Total Bilirubin (0.2-1.0) mg/dL AST (15-37) U/L ALT (14-59) U/L Alkaline Phosphatase (46-116) U/L C-Reactive Protein (<1.0) mg/dL NT-Pro-B Natriuret Pep (0-450) pg/mL Total Protein (6.4-8.2) g/dl Albumin (3.4-5.0) g/dl Globulin gm/dL Albumin/Globulin Ratio (1-2) Urine Color Yellow (Yellow) Urine Appearance Slt cloudy H (Clear) Urine pH 5.5 (5.0-8.0) Ur Specific [place] 1.020 (1.005-1.030) Urine Protein Negative (Negative) Urine Glucose (UA) 2+ H (Negative) Urine Ketones Negative (Negative) Urine Occult Blood Negative (Negative) Urine Nitrite Negative (Negative) Urine Bilirubin 1+ H (Negative) Urine Urobilinogen 0.2 (0.2-1.0) Ur Leukocyte Esterase Negative (Negative) Ketones (0.0-0.3) mM Meds: Medications Generic Name Dose Route Start Last Admin Trade Name Freq PRN Reason Stop Dose Admin Lactated Ringer's 1,000 mls @ 999 mls/hr 10/31/19 10:30 10/31/19 10:47 Ringers, Lactated IV 999 mls/hr ASDIRECTED CORRIE Administration Lactated Ringer's 1,000 mls @ 150 mls/hr 10/31/19 11:45 10/31/19 11:39 Ringers, Lactated IV 150 mls/hr ASDIRECTED CORRIE Administration Sodium Chloride 10 ml 10/31/19 09:17 10/31/19 09:31 Saline Flush FLUSH 10 ml ASDIRECTED PRN Administration Keep Vein Open Discontinued Medications Generic Name Dose Route Start Last Admin Trade Name Freq PRN Reason Stop Dose Admin Sodium Chloride 1,000 mls @ 999 mls/hr 10/31/19 09:17 10/31/19 09:31 Normal Saline IV 10/31/19 10:17 999 mls/hr BOLUS ONE Administration Ceftriaxone Sodium 2 gm/ 100 mls @ 200 mls/hr 10/31/19 10:27 10/31/19 10:47 Sodium Chloride IV 10/31/19 10:56 200 mls/hr ONETIME ONE Administration - Re-Assessments/Exams Free Text/Narrative Re-Assessment/Exam: 10/31/19 10:30. Pt did present with sepsis alert criteria, sepsis bundle ordered on admission. WBC did come back elevated at 16,700, 84 seg, 0 band, Na 152, K+ 4.0, anion gap 17, glucose 923, lactic acid 2.4 INR 1.05. CXR does not show pneumonia. Rocephin 2 g IV ordered. 10/31/19 12:14. reexam. Pt is more alert, vitals 127/73. 74 20 94 Now making better eye contact, patient has dementia, does not normally verbalize, followed command of squeezing fingers, heart reg rythm, lungs clear , good cap refill. UA has come back normal. No obvious etiology for infection at this time. Patient will be admitted to ICU. I discussed with family that she is at high risk for mortality with this clinical presentation. Have ordered a repeat glucose at this time. She is DNR/DNI. Departure - Departure Time of Disposition: 11:15 Disposition: Admitted As Inpatient 68 Condition: Critical Clinical Impression: Hyperglycemic hyperosmolar nonketotic coma, Renal insufficiency - Discharge Information Referrals: Eduar Cheney MD [Primary Care Provider] - Forms: ED Department Discharge ED Communication - Discussed Case With (1) Discussed Case With (1): Admitting Provider (Dr Finney, Decision to admit at about 11:00.) - My Orders Last 24 Hours: My Active Orders 10/31/19 09:17 Sodium Chloride 0.9% [Saline Flush] 10 ml FLUSH ASDIRECTED PRN 10/31/19 09:18 Chest 2V [CR] Stat Blood Culture x2 Reflex Set [OM.PC] Stat Saline Lock Insert [OM.PC] Stat Severe Sepsis Onset Time [OM.PC] Stat 10/31/19 09:35 CULTURE BLOOD [BC] Stat 10/31/19 09:39 EKG 12 Lead [EKG Documentation Completion] [RC] STAT 10/31/19 09:55 CULTURE BLOOD [BC] Stat 10/31/19 10:30 Lactated Ringers [Ringers, Lactated] 1,000 ml IV ASDIRECTED 10/31/19 10:48 Urinary Catheter Assessment [RC] ASDIRECTED 10/31/19 11:00 Insert Love Catheter [Insert Urinary Catheter] [OM.PC] Q24H 10/31/19 11:45 Lactated Ringers [Ringers, Lactated] 1,000 ml IV ASDIRECTED 10/31/19 12:09 LACTIC ACID [CHEM] Routine 10/31/19 12:10 GLUCOSE RANDOM [CHEM] Routine - Assessment/Plan Last 24 Hours: My Active Orders 10/31/19 09:17 Sodium Chloride 0.9% [Saline Flush] 10 ml FLUSH ASDIRECTED PRN 10/31/19 09:18 Chest 2V [CR] Stat Blood Culture x2 Reflex Set [OM.PC] Stat Saline Lock Insert [OM.PC] Stat Severe Sepsis Onset Time [OM.PC] Stat 10/31/19 09:35 CULTURE BLOOD [BC] Stat 10/31/19 09:39 EKG 12 Lead [EKG Documentation Completion] [RC] STAT 10/31/19 09:55 CULTURE BLOOD [BC] Stat 10/31/19 10:30 Lactated Ringers [Ringers, Lactated] 1,000 ml IV ASDIRECTED 10/31/19 10:48 Urinary Catheter Assessment [RC] ASDIRECTED 10/31/19 11:00 Insert Love Catheter [Insert Urinary Catheter] [OM.PC] Q24H 10/31/19 11:45 Lactated Ringers [Ringers, Lactated] 1,000 ml IV ASDIRECTED 10/31/19 12:09 LACTIC ACID [CHEM] Routine 10/31/19 12:10 GLUCOSE RANDOM [CHEM] Routine
[2019-10-31] MEDS ORDERED: cefTRIAXone 2 GM in Sodium Chloride 0.9% 100 ML IV ONE (10:27)
[2019-10-31] MEDS ORDERED: Lactated Ringers 1,000 ML IV SCH ×2 (10:30→11:45)
[2019-10-31] MEDS ORDERED: Sodium Chloride 0.45% 1,000 ML IV SCH ×3 (14:30→18:45)
[2019-10-31] MEDS ORDERED: Ondansetron 4 MG/2 ML SDV IV PRN (15:12)
[2019-10-31] MEDS ORDERED: Insulin Regular, Human 100 Units/ML 3 ML Vial IV ONE (15:24)
--- NOTE | 2019-10-31 15:29 | PCM.HP.2 ---
H&P History of Present Illness - General Date of Service: 10/31/19 Admit Problem/Dx: Admission Diagnosis/Problem Admission Diagnosis/Problem Hyperglycemic hyperosmolar nonketotic coma - History of Present Illness Initial Comments - Free Text/Narative: 84-year-old female with severe dementia brought in by [facility] from the long-term secondary to fever, dyspnea, altered mental status, and poor oral intake. Patient is nonverbal, therefore history was obtained from family and emergency room physician notes. Family states that 2 days ago she seemed to be fine in the evening and had a normal dinner. She was found at 8:00 this morning with the above signs and her primary care provider was contacted who recommended that she be sent to the hospital. Patient is able to follow simple commands but not able to answer questions. She has a history of dementia, COPD , hypertension, right above-knee amputation secondary to peripheral vascular disease. In the emergency room patient was found to have a temperature of 100.0 Fahrenheit, elevated white count of 16,690 with 84% segs and no bands, and anion gap of 17, lactic acid of 2.4 so a sepsis alert was ordered. Patient was given IV fluids, Rocephin, a chest x-ray was performed and an urine analysis. Chest x-ray and UA were negative. Patient was also found to have a glucose of 923, sodium of 152, bicarb of 33, ketones of 1.6. ABG: pH 3.72, PCO2 of 60.9, PO2 of 83.0, HCO3 of 30.3, O2 saturation 95.6. Consistent with hyperosmolar hyperglycemia with chronic respiratory acidosis. - Related Data Allergies/Adverse Reactions: Allergies Allergy/AdvReac Type Severity Reaction Status Date / Time No Known Allergies Allergy Verified 05/30/17 10:37 Home Medications: Home Meds Lisinopril 10 mg PO DAILY 05/26/16 [History] Aspirin 81 mg PO DAILY #30 tab.chew 05/27/16 [Rx] Acetaminophen [Tylenol Extra Strength] 650 mg PO Q6H PRN 05/22/17 [History] Memantine HCl [Namenda] 5 mg PO BID 05/22/17 [History] Bisacodyl [Laxative Suppository] 10 mg RECTAL DAILY PRN 10/31/19 [History] Diltiazem [Cardizem CD] 240 mg PO DAILY 10/31/19 [History] Furosemide [Lasix] 40 mg PO DAILY 10/31/19 [History] Metoprolol Tartrate [Lopressor] 12.5 mg PO BID 10/31/19 [History] Pravastatin [Pravachol] 20 mg PO DAILY 10/31/19 [History] Sertraline [Zoloft] 50 mg PO BEDTIME 10/31/19 [History] Past Medical History Cardiovascular History: Reports: High Cholesterol, Hypertension, PVD Respiratory History: Reports: COPD Gastrointestinal History: Reports: Other (See Below) Other Gastrointestinal History: incont of stool Genitourinary History: Reports: Other (See Below) Other Genitourinary History: Incont of urine [employer] History: Reports: Other OB/BYN History: Confused Musculoskeletal History: Reports: Osteoarthritis Other Neuro History: Patient confused Psychiatric History: Reports: Anxiety, Depression Other Hematologic History: Confused - Past Surgical History Other HEENT Surgeries/Procedures: Patient confused Other Endocrine Surgeries/Procedures: Confused Musculoskeletal Surgical History: Reports: Amputation Other Oncologic Surgeries/Procedures: Confused Social & Family History - Family History Family Medical History: Unobtainable Oncologic: Reports: Prostate - Tobacco Use Smoking Status *Q: Never Smoker - Caffeine Use Caffeine Use: Reports: None Caffeine Use Comment: 2 cups per day - Recreational Drug Use Recreational Drug Use: No - Living Situation & Occupation Living situation: Reports: , with Spouse Occupation: Retired H&P Review of Systems - Review of Systems: Review Of Systems: Unable To Obtain Reason Not Obtained: Noncommunicative Exam - Exam Exam: See Below - Vital Signs Vital Signs: Last Vital Signs Temp 100.0 F 10/31/19 09:07 Pulse 78 10/31/19 11:40 Resp 22 H 10/31/19 11:40 BP 116/97 H 10/31/19 11:40 Pulse Ox 94 L 10/31/19 11:40 Weight: 136 lb 9.6 oz - Exam Quality Assessment: Supplemental Oxygen, Urinary Catheter General: Alert HEENT: Conjunctiva Clear, Mucosa Moist & [place] Neck: Supple Lungs: Rales. No: Normal Respiratory Effort (Mild increased respiratory rate) Cardiovascular: Regular Rate, Regular Rhythm, Systolic Murmur GI/Abdominal Exam: Normal Bowel Sounds, Tender (Diffuse abdominal tenderness.). No: Guarding, Rigid, Rebound Skin: Warm, Dry Neuro Extensive - Mental Status: Opens Eyes to Commands, Slow Response to Commands, Other (Patient is nonverbal, but does follow simple commands like grabbing fingers. Patient does not let go though.) - Patient Data Lab Results Last 24 hrs: Laboratory Results - last 24 hr 10/31/19 10/31/19 10/31/19 Range/Units 09:35 09:35 09:35 WBC 16.69 H (3.98-10.04) K/mm3 RBC 5.28 H (3.98-5.22) M/mm3 Hgb 15.6 (11.2-15.7) gm/dl Hct 52.2 H (34.1-44.9) % MCV 98.9 H D (79.4-94.8) fl MCH 29.5 (25.6-32.2) pg MCHC 29.9 L (32.2-35.5) g/dl RDW Std Deviation 53.5 H (36.4-46.3) fL Plt Count 304 (182-369) K/mm3 MPV 13.9 H (9.4-12.3) fl Neutrophils % (Manual) 84 H (40-60) % Band Neutrophils % 0 (0-10) % Lymphocytes % (Manual) 16 L (20-40) % Atypical Lymphs % 0 % Monocytes % (Manual) 0 L (2-10) % Eosinophils % (Manual) 0 L (0.7-5.8) % Basophils % (Manual) 0 L (0.1-1.2) Platelet Estimate Adequate Hypochromasia 2+ moderate Target Cells 1+ slight Tear Drop Cells 1+ slight RBC Morph Comment Not Reportable PT 11.4 (9.7-12.0) SECONDS INR 1.05 Puncture Site ABG pH (7.35-7.45) ABG pCO2 (35.0-45.0) mmHg ABG pO2 (80.0-100.0) mmHg ABG HCO3 (22.0-26.0) meq/L ABG O2 Saturation (96.0-97.0) % ABG Base Excess (-2-2.0) Efrem Test A-a Gradient mmHg O2 Delivery Device Oxygen Flow Rate FiO2 (21.00-100.00) % Sodium 152 H D (136-145) mEq/L Potassium 4.0 (3.5-5.1) mEq/L Chloride 106 (98-107) mEq/L Carbon Dioxide 33 H (21-32) mEq/L Anion Gap 17.0 H (5-15) BUN 83 H D (7-18) mg/dL Creatinine 3.1 H D (0.55-1.02) mg/dL Est Cr Clr Drug Dosing 11.07 mL/min Estimated GFR (MDRD) 14 (>60) mL/min BUN/Creatinine Ratio 26.8 H (14-18) Glucose 923 H* (83-115) mg/dL Serum Osmolality (280-300) mosm/kg Lactic Acid (0.4-2.0) mmol/L Calcium 9.6 (8.5-10.1) mg/dL Magnesium (1.8-2.4) mg/dl Total Bilirubin 0.4 (0.2-1.0) mg/dL AST 28 (15-37) U/L ALT 35 (14-59) U/L Alkaline Phosphatase 112 (46-116) U/L C-Reactive Protein 1.8 H* (<1.0) mg/dL NT-Pro-B Natriuret Pep (0-450) pg/mL Total Protein 8.1 (6.4-8.2) g/dl Albumin 3.6 (3.4-5.0) g/dl Globulin 4.5 gm/dL Albumin/Globulin Ratio 0.8 L (1-2) Urine Color (Yellow) Urine Appearance (Clear) Urine pH (5.0-8.0) Ur Specific [place] (1.005-1.030) Urine Protein (Negative) Urine Glucose (UA) (Negative) Urine Ketones (Negative) Urine Occult Blood (Negative) Urine Nitrite (Negative) Urine Bilirubin (Negative) Urine Urobilinogen (0.2-1.0) Ur Leukocyte Esterase (Negative) Ketones (0.0-0.3) mM 10/31/19 10/31/19 10/31/19 Range/Units 09:35 09:35 09:35 WBC (3.98-10.04) K/mm3 RBC (3.98-5.22) M/mm3 Hgb (11.2-15.7) gm/dl Hct (34.1-44.9) % MCV (79.4-94.8) fl MCH (25.6-32.2) pg MCHC (32.2-35.5) g/dl RDW Std Deviation (36.4-46.3) fL Plt Count (182-369) K/mm3 MPV (9.4-12.3) fl Neutrophils % (Manual) (40-60) % Band Neutrophils % (0-10) % Lymphocytes % (Manual) (20-40) % Atypical Lymphs % % Monocytes % (Manual) (2-10) % Eosinophils % (Manual) (0.7-5.8) % Basophils % (Manual) (0.1-1.2) Platelet Estimate Hypochromasia Target Cells Tear Drop Cells RBC Morph Comment PT (9.7-12.0) SECONDS INR Puncture Site ABG pH (7.35-7.45) ABG pCO2 (35.0-45.0) mmHg ABG pO2 (80.0-100.0) mmHg ABG HCO3 (22.0-26.0) meq/L ABG O2 Saturation (96.0-97.0) % ABG Base Excess (-2-2.0) Efrem Test A-a Gradient mmHg O2 Delivery Device Oxygen Flow Rate FiO2 (21.00-100.00) % Sodium (136-145) mEq/L Potassium (3.5-5.1) mEq/L Chloride (98-107) mEq/L Carbon Dioxide (21-32) mEq/L Anion Gap (5-15) BUN (7-18) mg/dL Creatinine (0.55-1.02) mg/dL Est Cr Clr Drug Dosing mL/min Estimated GFR (MDRD) (>60) mL/min BUN/Creatinine Ratio (14-18) Glucose (83-115) mg/dL Serum Osmolality (280-300) mosm/kg Lactic Acid 2.4 H* (0.4-2.0) mmol/L Calcium (8.5-10.1) mg/dL Magnesium (1.8-2.4) mg/dl Total Bilirubin (0.2-1.0) mg/dL AST (15-37) U/L ALT (14-59) U/L Alkaline Phosphatase (46-116) U/L C-Reactive Protein (<1.0) mg/dL NT-Pro-B Natriuret Pep 2474 H (0-450) pg/mL Total Protein (6.4-8.2) g/dl Albumin (3.4-5.0) g/dl Globulin gm/dL Albumin/Globulin Ratio (1-2) Urine Color (Yellow) Urine Appearance (Clear) Urine pH (5.0-8.0) Ur Specific [place] (1.005-1.030) Urine Protein (Negative) Urine Glucose (UA) (Negative) Urine Ketones (Negative) Urine Occult Blood (Negative) Urine Nitrite (Negative) Urine Bilirubin (Negative) Urine Urobilinogen (0.2-1.0) Ur Leukocyte Esterase (Negative) Ketones 1.6 (0.0-0.3) mM 10/31/19 10/31/19 10/31/19 Range/Units 10:49 11:38 12:20 WBC (3.98-10.04) K/mm3 RBC (3.98-5.22) M/mm3 Hgb (11.2-15.7) gm/dl Hct (34.1-44.9) % MCV (79.4-94.8) fl MCH (25.6-32.2) pg MCHC (32.2-35.5) g/dl RDW Std Deviation (36.4-46.3) fL Plt Count (182-369) K/mm3 MPV (9.4-12.3) fl Neutrophils % (Manual) (40-60) % Band Neutrophils % (0-10) % Lymphocytes % (Manual) (20-40) % Atypical Lymphs % % Monocytes % (Manual) (2-10) % Eosinophils % (Manual) (0.7-5.8) % Basophils % (Manual) (0.1-1.2) Platelet Estimate Hypochromasia Target Cells Tear Drop Cells RBC Morph Comment PT (9.7-12.0) SECONDS INR Puncture Site Rt radial ABG pH 7.32 L (7.35-7.45) ABG pCO2 60.9 H (35.0-45.0) mmHg ABG pO2 83.0 (80.0-100.0) mmHg ABG HCO3 30.3 H (22.0-26.0) meq/L ABG O2 Saturation 95.6 L (96.0-97.0) % ABG Base Excess 3.0 H (-2-2.0) Efrem Test Positive A-a Gradient 213 mmHg O2 Delivery Device Simple mask Oxygen Flow Rate 8.0 FiO2 52.00 (21.00-100.00) % Sodium (136-145) mEq/L Potassium (3.5-5.1) mEq/L Chloride (98-107) mEq/L Carbon Dioxide (21-32) mEq/L Anion Gap (5-15) BUN (7-18) mg/dL Creatinine (0.55-1.02) mg/dL Est Cr Clr Drug Dosing mL/min Estimated GFR (MDRD) (>60) mL/min BUN/Creatinine Ratio (14-18) Glucose 767 H* (83-115) mg/dL Serum Osmolality (280-300) mosm/kg Lactic Acid (0.4-2.0) mmol/L Calcium (8.5-10.1) mg/dL Magnesium (1.8-2.4) mg/dl Total Bilirubin (0.2-1.0) mg/dL AST (15-37) U/L ALT (14-59) U/L Alkaline Phosphatase (46-116) U/L C-Reactive Protein (<1.0) mg/dL NT-Pro-B Natriuret Pep (0-450) pg/mL Total Protein (6.4-8.2) g/dl Albumin (3.4-5.0) g/dl Globulin gm/dL Albumin/Globulin Ratio (1-2) Urine Color Yellow (Yellow) Urine Appearance Slt cloudy H (Clear) Urine pH 5.5 (5.0-8.0) Ur Specific [place] 1.020 (1.005-1.030) Urine Protein Negative (Negative) Urine Glucose (UA) 2+ H (Negative) Urine Ketones Negative (Negative) Urine Occult Blood Negative (Negative) Urine Nitrite Negative (Negative) Urine Bilirubin 1+ H (Negative) Urine Urobilinogen 0.2 (0.2-1.0) Ur Leukocyte Esterase Negative (Negative) Ketones (0.0-0.3) mM 10/31/19 10/31/19 10/31/19 Range/Units 14:11 14:11 14:11 WBC (3.98-10.04) K/mm3 RBC (3.98-5.22) M/mm3 Hgb (11.2-15.7) gm/dl Hct (34.1-44.9) % MCV (79.4-94.8) fl MCH (25.6-32.2) pg MCHC (32.2-35.5) g/dl RDW Std Deviation (36.4-46.3) fL Plt Count (182-369) K/mm3 MPV (9.4-12.3) fl Neutrophils % (Manual) (40-60) % Band Neutrophils % (0-10) % Lymphocytes % (Manual) (20-40) % Atypical Lymphs % % Monocytes % (Manual) (2-10) % Eosinophils % (Manual) (0.7-5.8) % Basophils % (Manual) (0.1-1.2) Platelet Estimate Hypochromasia Target Cells Tear Drop Cells RBC Morph Comment PT (9.7-12.0) SECONDS INR Puncture Site ABG pH (7.35-7.45) ABG pCO2 (35.0-45.0) mmHg ABG pO2 (80.0-100.0) mmHg ABG HCO3 (22.0-26.0) meq/L ABG O2 Saturation (96.0-97.0) % ABG Base Excess (-2-2.0) Efrem Test A-a Gradient mmHg O2 Delivery Device Oxygen Flow Rate FiO2 (21.00-100.00) % Sodium 153 H (136-145) mEq/L Potassium 3.5 (3.5-5.1) mEq/L Chloride 111 H (98-107) mEq/L Carbon Dioxide 31 (21-32) mEq/L Anion Gap 14.5 (5-15) BUN 74 H (7-18) mg/dL Creatinine 2.5 H (0.55-1.02) mg/dL Est Cr Clr Drug Dosing 14.35 mL/min Estimated GFR (MDRD) 18 (>60) mL/min BUN/Creatinine Ratio 29.6 H (14-18) Glucose 842 H* (83-115) mg/dL Serum Osmolality 390 H (280-300) mosm/kg Lactic Acid 1.9 (0.4-2.0) mmol/L Calcium 8.3 L (8.5-10.1) mg/dL Magnesium 2.5 H (1.8-2.4) mg/dl Total Bilirubin (0.2-1.0) mg/dL AST (15-37) U/L ALT (14-59) U/L Alkaline Phosphatase (46-116) U/L C-Reactive Protein (<1.0) mg/dL NT-Pro-B Natriuret Pep (0-450) pg/mL Total Protein (6.4-8.2) g/dl Albumin (3.4-5.0) g/dl Globulin gm/dL Albumin/Globulin Ratio (1-2) Urine Color (Yellow) Urine Appearance (Clear) Urine pH (5.0-8.0) Ur Specific [place] (1.005-1.030) Urine Protein (Negative) Urine Glucose (UA) (Negative) Urine Ketones (Negative) Urine Occult Blood (Negative) Urine Nitrite (Negative) Urine Bilirubin (Negative) Urine Urobilinogen (0.2-1.0) Ur Leukocyte Esterase (Negative) Ketones (0.0-0.3) mM Result Diagrams: 10/31/19 09:35 10/31/19 18:50 Problem List Initiated/Reviewed/Updated: Yes Orders Last 24hrs: Active Orders 24 hr Category Date Time Status Patient Status [ADT] Routine ADT 10/31/19 13:05 Active Antiembolic Devices [RC] PER UNIT ROUTINE Care 10/31/19 15:13 Active Blood Glucose Check, Bedside [RC] Q1H Care 10/31/19 14:01 Active EKG 12 Lead [EKG Documentation Completion] [RC] STAT Care 10/31/19 09:39 Active Insert Love Catheter [Insert Urinary Catheter] [OM.PC] Care 10/31/19 11:00 Ordered Q24H Oxygen Therapy [RC] PRN Care 10/31/19 15:12 Ordered Up With Assistance [RC] ASDIRECTED Care 10/31/19 15:12 Ordered Urinary Catheter Assessment [RC] ASDIRECTED Care 10/31/19 10:48 Active VTE/DVT Education [RC] PER UNIT ROUTINE Care 10/31/19 15:12 Ordered Vital Signs [RC] Q4H Care 10/31/19 15:12 Active Nothing per Oral Now Diet [DIET] Diet 10/31/19 Dinner Active Chest 2V [CR] Stat Exams 10/31/19 09:18 Taken BASIC METABOLIC PANEL,BMP [CHEM] Q4H Lab 10/31/19 16:15 Ordered BASIC METABOLIC PANEL,BMP [CHEM] Q4H Lab 10/31/19 20:15 Ordered BASIC METABOLIC PANEL,BMP [CHEM] Q4H Lab 11/01/19 00:15 Ordered BASIC METABOLIC PANEL,BMP [CHEM] Q4H Lab 11/01/19 04:15 Ordered CBC WITH AUTO DIFF [HEME] AM Lab 11/01/19 05:11 Ordered CBC WITH AUTO DIFF [HEME] AM Lab 11/02/19 05:11 Ordered CBC WITH AUTO DIFF [HEME] AM Lab 11/03/19 05:11 Ordered CBC WITH AUTO DIFF [HEME] AM Lab 11/04/19 05:11 Ordered CMP [COMPREHENSIVE METABOLIC PN,CMP] [CHEM] AM Lab 11/01/19 05:11 Ordered CMP [COMPREHENSIVE METABOLIC PN,CMP] [CHEM] AM Lab 11/02/19 05:11 Ordered CMP [COMPREHENSIVE METABOLIC PN,CMP] [CHEM] AM Lab 11/03/19 05:11 Ordered CMP [COMPREHENSIVE METABOLIC PN,CMP] [CHEM] AM Lab 11/04/19 05:11 Ordered CULTURE BLOOD [BC] Stat Lab 10/31/19 09:35 Received CULTURE BLOOD [BC] Stat Lab 10/31/19 09:55 Received LACTIC ACID [CHEM] Routine Lab 10/31/19 12:09 Ordered MAGNESIUM [CHEM] AM Lab 11/01/19 05:11 Ordered MAGNESIUM [CHEM] AM Lab 11/02/19 05:11 Ordered MAGNESIUM [CHEM] AM Lab 11/03/19 05:11 Ordered MAGNESIUM [CHEM] AM Lab 11/04/19 05:11 Ordered MAGNESIUM [CHEM] Q4H Lab 10/31/19 16:15 Ordered MAGNESIUM [CHEM] Q4H Lab 10/31/19 20:15 Ordered MAGNESIUM [CHEM] Q4H Lab 11/01/19 00:15 Ordered MAGNESIUM [CHEM] Q4H Lab 11/01/19 04:15 Ordered Insulin Regular, Human [HumuLIN R] Med 10/31/19 15:24 Once 6 unit IV ONETIME ONE Lactated Ringers [Ringers, Lactated] 1,000 ml Med 10/31/19 10:30 Active IV ASDIRECTED Lactated Ringers [Ringers, Lactated] 1,000 ml Med 10/31/19 11:45 Active IV ASDIRECTED Ondansetron [Zofran] Med 10/31/19 15:12 Ordered 4 mg IV Q4H PRN Potassium Chloride [KCl 10 MEQ in Water 100 ML] 10 meq Med 10/31/19 15:30 Ordered Premix Bag 1 bag IV ASDIRECTED Regular Insulin,Human 100 Units in Normal Saline @ 0.1 Med 10/31/19 15:30 Ordered Units/KG/HR Insulin Regular, Human [HumuLIN R] 100 unit Sodium Chloride 0.9% [Normal Saline] 99 ml IV TITRATE Sodium Chloride 0.45% 1,000 ml Med 10/31/19 14:30 Active IV ASDIRECTED Sodium Chloride 0.9% [Saline Flush] Med 10/31/19 09:17 Active 10 ml FLUSH ASDIRECTED PRN Blood Culture x2 Reflex Set [OM.PC] Stat Ot 10/31/19 09:18 Ordered Saline Lock Insert [OM.PC] Stat Ot 10/31/19 09:18 Ordered Sequential Compression Device [OM.PC] Per Unit Routine Ot 10/31/19 15:12 Ordered Severe Sepsis Onset Time [OM.PC] Stat Ot 10/31/19 09:18 Ordered Resuscitation Status Routine Resus Stat 10/31/19 15:12 Ordered Medication Orders Lactated Ringer's (Ringers, Lactated) 1,000 mls @ 999 mls/hr IV ASDIRECTED [facility] Last Admin: 10/31/19 10:47 Dose: 999 mls/hr Lactated Ringer's (Ringers, Lactated) 1,000 mls @ 150 mls/hr IV ASDIRECTED [facility] Last Admin: 10/31/19 11:39 Dose: 150 mls/hr Sodium Chloride (Sodium Chloride 0.45%) 1,000 mls @ 250 mls/hr IV ASDIRECTED [facility] Last Admin: 10/31/19 15:18 Dose: 250 mls/hr Insulin Human Regular 100 unit (/ Sodium Chloride) 100 mls @ 6.19 mls/hr IV TITRATE [facility]; Protocol Potassium Chloride 10 meq/ (Premix) 0 mls @ 100 mls/hr IV ASDIRECTED [facility]RIE Stop: 11/01/19 15:31 Insulin Human Regular (Humulin R) 6 unit IV ONETIME ONE Stop: 10/31/19 15:25 Ondansetron HCl (Zofran) 4 mg IV Q4H PRN PRN Reason: Nausea/Vomiting Sodium Chloride (Saline Flush) 10 ml FLUSH ASDIRECTED PRN PRN Reason: Keep Vein Open Last Admin: 10/31/19 09:31 Dose: 10 ml Assessment/Plan Comment:: Assessment * Hyperosmolar hyperglycemic state: No history of diabetes * Blood sugar 923, pH 7.32, bicarb 30, ketones 1.6 * Fluid bolus with LR 2 L in the emergency room * Severe dementia * Nonverbal * Responds to simple commands * Chronic respiratory acidosis with hypoxemic/hypercapnic respiratory failure * History of COPD * Lactic acidosis with anion gap * Initial lactic acid 2.4, anion gap 17.0 * Acute renal failure * Initial BUN 83, creatinine 3.1 * Sepsis protocol initiated in the emergency room * Temperature 100.0 in the emergency room with elevated white count of over 16, 000, lactic acidosis, and anion gap * Blood cultures and Rocephin given in the emergency room * No current source of infection with normal chest x-ray and UA * Patient does have abdominal tenderness, therefore possible abdominal source * Pneumonia may be present and not showing up on chest x-ray secondary to severe dehydration * History of hypertension and peripheral vascular disease with above knee amputation on the right Plan * Admit to ICU * Switch IV fluids to one half normal saline * Regular insulin 6 units IV x1 then initiate insulin drip at 6 units/h with goal of decreasing glucose by 50 to 70 mg/dL/h * Glucose every hour * Follow BMP and magnesium every 2-4 hours * Follow respiratory status closely. Patient will require large amounts of fluids secondary to her hyperosmolar state which may precipitate pulmonary edema * Chest x-ray in the morning * KCl 20 mEq over 2 hours then added to one half normal saline 20 mEq per 1 L bag * Replenish potassium as needed. * Follow potassium closely. * When serum glucose reaches 300 mg/dL will reduce regular insulin infusion to 0.02 to 0.05 units/kg/h IV and switch to 5% dextrose with half-normal saline. * VTE prophylaxis with SCDs we will consider Lovenox in the morning * CODE STATUS: DNR/DNI. I spoke at great length with family, 2 sisters and 2 brothers, about her high risk of mortality. They understand that she has upwards of 80% risk of mortality secondary to her severe multi-system failure. Patient will be placed on BiPAP if necessary, but they do not want central venous access or an arterial line. They also do not want intubation or resuscitation. - Mortality Measure Prognosis:: Poor (Patient is in critical condition with very high risk of mortality)
[2019-10-31] MEDS ORDERED: Potassium Chloride 10 MEQ in Premix Bag 1 BAG IV SCH (15:30)
[2019-10-31] MEDS: Potassium Chloride 10 MEQ in Premix Bag 1 BAG IV SCH ×7 (16:41→21:15)
[2019-10-31] MEDS ORDERED: Sodium Chloride 0.45% with KCl 1,000 ML IV SCH ×2 (17:00→18:15)
--- NOTE | 2019-10-31 19:58 | PCM.SN ---
- Free Text/Narrative Note: Patient appears to be struggling more for her breath. Repeat ABG: pH 7.29, PCO2 65.6, PO2 68, HCO3 30.5. Patient will be placed on BiPAP. Patient also became hypokalemic at 2.8 with aggressive IV rehydration and insulin. IV potassium is being cautiously given secondary to her renal insufficiency. IV insulin was held until potassium increased back above 3.3. Most recent BMP demonstrates potassium of 3.5. Continue to monitor BMP closely.
[2019-10-31] MEDS: Dextrose 5%-0.45% NaCl 1,000 ML IV SCH (23:18)
[2019-11-01] MEDS: Potassium Chloride 10 MEQ in Premix Bag 1 BAG IV SCH ×4 (01:18→13:32)
[2019-11-01] MEDS: Dextrose 5%-0.45% NaCl 1,000 ML IV SCH (05:49)
[2019-11-01] MEDS: cefTRIAXone 2 GM in Sodium Chloride 0.9% 100 ML IV SCH (09:42)
--- NOTE | 2019-11-01 09:42 | CR ---
Chest: Portable view of the chest was obtained. Comparison: Prior chest x-ray of 10/31/19. Heart size and mediastinum are within normal limits for portable technique. Lungs show no acute parenchymal change. Bony structures are grossly intact. Impression: 1. Nothing acute is appreciated on portable chest x-ray. Diagnostic code #1 This report was dictated in [place] Standard Time
[2019-11-01] MEDS ORDERED: D5 1/2 NS w/ 20 mEq/L KCl 1,000 ML IV SCH (09:45)
--- NOTE | 2019-11-01 10:19 | PCM.PN ---
- General Info Date of Service: 11/01/19 Admission Dx/Problem (Free Text): Admission Diagnosis/Problem Admission Diagnosis/Problem Hyperglycemic hyperosmolar nonketotic coma Subjective Update: Georgina is more awake and alert. She continues to sleep frequently, but family says this is fairly normal. Her baseline she is able to feed herself. Hyperglycemia has been corrected, but patient still has hypernatremia. Currently on insulin drip with D5 half-normal saline with 20 of K at 150/h. - Review of Systems General: Reports: Other (Noncommunicative) - Patient Data Vitals - Most Recent: Last Vital Signs Temp 97.2 F 11/01/19 04:00 Pulse 67 11/01/19 08:00 Resp 19 11/01/19 08:00 BP 114/89 11/01/19 08:00 Pulse Ox 99 11/01/19 08:56 Weight - Most Recent: 156 lb 4.8 oz I&O - Last 24 Hours: Intake & Output 10/31/19 11/01/19 11/01/19 22:59 06:59 14:59 Intake Total 430 2506 Output Total 650 325 200 Balance -220 2181 -200 Lab Results Last 24 Hours: Laboratory Results - last 24 hr 10/31/19 10/31/19 10/31/19 Range/Units 09:35 09:35 09:35 WBC 16.69 H (3.98-10.04) K/mm3 RBC 5.28 H (3.98-5.22) M/mm3 Hgb 15.6 (11.2-15.7) gm/dl Hct 52.2 H (34.1-44.9) % MCV 98.9 H D (79.4-94.8) fl MCH 29.5 (25.6-32.2) pg MCHC 29.9 L (32.2-35.5) g/dl RDW Std Deviation 53.5 H (36.4-46.3) fL Plt Count 304 (182-369) K/mm3 MPV 13.9 H (9.4-12.3) fl Neut % (Auto) (34.0-71.1) % Lymph % (Auto) (19.3-51.7) % [place] % (Auto) (4.7-12.5) % Eos % (Auto) (0.7-5.8) Baso % (Auto) (0.1-1.2) % Neut # (Auto) (1.56-6.13) K/mm3 Lymph # (Auto) (1.18-3.74) K/mm3 [place] # (Auto) (0.24-0.36) K/mm3 Eos # (Auto) (0.04-0.36) K/mm3 Baso # (Auto) (0.01-0.08) K/mm3 Neutrophils % (Manual) 84 H (40-60) % Band Neutrophils % 0 (0-10) % Lymphocytes % (Manual) 16 L (20-40) % Atypical Lymphs % 0 % Monocytes % (Manual) 0 L (2-10) % Eosinophils % (Manual) 0 L (0.7-5.8) % Basophils % (Manual) 0 L (0.1-1.2) Manual Slide Review Platelet Estimate Adequate Hypochromasia 2+ moderate Target Cells 1+ slight Tear Drop Cells 1+ slight RBC Morph Comment Not Reportable PT 11.4 (9.7-12.0) SECONDS INR 1.05 Puncture Site ABG pH (7.35-7.45) ABG pCO2 (35.0-45.0) mmHg ABG pO2 (80.0-100.0) mmHg ABG HCO3 (22.0-26.0) meq/L ABG O2 Saturation (96.0-97.0) % ABG Base Excess (-2-2.0) Efrem Test A-a Gradient mmHg O2 Delivery Device Oxygen Flow Rate FiO2 (21.00-100.00) % Sodium (136-145) mEq/L Potassium (3.5-5.1) mEq/L Chloride (98-107) mEq/L Carbon Dioxide (21-32) mEq/L Anion Gap (5-15) BUN (7-18) mg/dL Creatinine (0.55-1.02) mg/dL Est Cr Clr Drug Dosing mL/min Estimated GFR (MDRD) (>60) mL/min BUN/Creatinine Ratio (14-18) Glucose 923 H* (83-115) mg/dL POC Glucose (83-110) mg/dL Serum Osmolality (280-300) mosm/kg Lactic Acid (0.4-2.0) mmol/L Calcium (8.5-10.1) mg/dL Magnesium (1.8-2.4) mg/dl Total Bilirubin (0.2-1.0) mg/dL AST (15-37) U/L ALT (14-59) U/L Alkaline Phosphatase (46-116) U/L NT-Pro-B Natriuret Pep (0-450) pg/mL Total Protein (6.4-8.2) g/dl Albumin (3.4-5.0) g/dl Globulin gm/dL Albumin/Globulin Ratio (1-2) Urine Color (Yellow) Urine Appearance (Clear) Urine pH (5.0-8.0) Ur Specific [place] (1.005-1.030) Urine Protein (Negative) Urine Glucose (UA) (Negative) Urine Ketones (Negative) Urine Occult Blood (Negative) Urine Nitrite (Negative) Urine Bilirubin (Negative) Urine Urobilinogen (0.2-1.0) Ur Leukocyte Esterase (Negative) Ketones (0.0-0.3) mM MRSA (PCR) 10/31/19 10/31/19 10/31/19 Range/Units 09:35 09:35 10:49 WBC (3.98-10.04) K/mm3 RBC (3.98-5.22) M/mm3 Hgb (11.2-15.7) gm/dl Hct (34.1-44.9) % MCV (79.4-94.8) fl MCH (25.6-32.2) pg MCHC (32.2-35.5) g/dl RDW Std Deviation (36.4-46.3) fL Plt Count (182-369) K/mm3 MPV (9.4-12.3) fl Neut % (Auto) (34.0-71.1) % Lymph % (Auto) (19.3-51.7) % [place] % (Auto) (4.7-12.5) % Eos % (Auto) (0.7-5.8) Baso % (Auto) (0.1-1.2) % Neut # (Auto) (1.56-6.13) K/mm3 Lymph # (Auto) (1.18-3.74) K/mm3 [place] # (Auto) (0.24-0.36) K/mm3 Eos # (Auto) (0.04-0.36) K/mm3 Baso # (Auto) (0.01-0.08) K/mm3 Neutrophils % (Manual) (40-60) % Band Neutrophils % (0-10) % Lymphocytes % (Manual) (20-40) % Atypical Lymphs % % Monocytes % (Manual) (2-10) % Eosinophils % (Manual) (0.7-5.8) % Basophils % (Manual) (0.1-1.2) Manual Slide Review Platelet Estimate Hypochromasia Target Cells Tear Drop Cells RBC Morph Comment PT (9.7-12.0) SECONDS INR Puncture Site ABG pH (7.35-7.45) ABG pCO2 (35.0-45.0) mmHg ABG pO2 (80.0-100.0) mmHg ABG HCO3 (22.0-26.0) meq/L ABG O2 Saturation (96.0-97.0) % ABG Base Excess (-2-2.0) Efrem Test A-a Gradient mmHg O2 Delivery Device Oxygen Flow Rate FiO2 (21.00-100.00) % Sodium (136-145) mEq/L Potassium (3.5-5.1) mEq/L Chloride (98-107) mEq/L Carbon Dioxide (21-32) mEq/L Anion Gap (5-15) BUN (7-18) mg/dL Creatinine (0.55-1.02) mg/dL Est Cr Clr Drug Dosing mL/min Estimated GFR (MDRD) (>60) mL/min BUN/Creatinine Ratio (14-18) Glucose (83-115) mg/dL POC Glucose (83-110) mg/dL Serum Osmolality (280-300) mosm/kg Lactic Acid (0.4-2.0) mmol/L Calcium (8.5-10.1) mg/dL Magnesium (1.8-2.4) mg/dl Total Bilirubin (0.2-1.0) mg/dL AST (15-37) U/L ALT (14-59) U/L Alkaline Phosphatase (46-116) U/L NT-Pro-B Natriuret Pep 2474 H (0-450) pg/mL Total Protein (6.4-8.2) g/dl Albumin (3.4-5.0) g/dl Globulin gm/dL Albumin/Globulin Ratio (1-2) Urine Color Yellow (Yellow) Urine Appearance Slt cloudy H (Clear) Urine pH 5.5 (5.0-8.0) Ur Specific [place] 1.020 (1.005-1.030) Urine Protein Negative (Negative) Urine Glucose (UA) 2+ H (Negative) Urine Ketones Negative (Negative) Urine Occult Blood Negative (Negative) Urine Nitrite Negative (Negative) Urine Bilirubin 1+ H (Negative) Urine Urobilinogen 0.2 (0.2-1.0) Ur Leukocyte Esterase Negative (Negative) Ketones 1.6 (0.0-0.3) mM MRSA (PCR) 10/31/19 10/31/19 10/31/19 Range/Units 11:38 12:20 14:11 WBC (3.98-10.04) K/mm3 RBC (3.98-5.22) M/mm3 Hgb (11.2-15.7) gm/dl Hct (34.1-44.9) % MCV (79.4-94.8) fl MCH (25.6-32.2) pg MCHC (32.2-35.5) g/dl RDW Std Deviation (36.4-46.3) fL Plt Count (182-369) K/mm3 MPV (9.4-12.3) fl Neut % (Auto) (34.0-71.1) % Lymph % (Auto) (19.3-51.7) % [place] % (Auto) (4.7-12.5) % Eos % (Auto) (0.7-5.8) Baso % (Auto) (0.1-1.2) % Neut # (Auto) (1.56-6.13) K/mm3 Lymph # (Auto) (1.18-3.74) K/mm3 [place] # (Auto) (0.24-0.36) K/mm3 Eos # (Auto) (0.04-0.36) K/mm3 Baso # (Auto) (0.01-0.08) K/mm3 Neutrophils % (Manual) (40-60) % Band Neutrophils % (0-10) % Lymphocytes % (Manual) (20-40) % Atypical Lymphs % % Monocytes % (Manual) (2-10) % Eosinophils % (Manual) (0.7-5.8) % Basophils % (Manual) (0.1-1.2) Manual Slide Review Platelet Estimate Hypochromasia Target Cells Tear Drop Cells RBC Morph Comment PT (9.7-12.0) SECONDS INR Puncture Site Rt radial ABG pH 7.32 L (7.35-7.45) ABG pCO2 60.9 H (35.0-45.0) mmHg ABG pO2 83.0 (80.0-100.0) mmHg ABG HCO3 30.3 H (22.0-26.0) meq/L ABG O2 Saturation 95.6 L (96.0-97.0) % ABG Base Excess 3.0 H (-2-2.0) Efrem Test Positive A-a Gradient 213 mmHg O2 Delivery Device Simple mask Oxygen Flow Rate 8.0 FiO2 52.00 (21.00-100.00) % Sodium (136-145) mEq/L Potassium (3.5-5.1) mEq/L Chloride (98-107) mEq/L Carbon Dioxide (21-32) mEq/L Anion Gap (5-15) BUN (7-18) mg/dL Creatinine (0.55-1.02) mg/dL Est Cr Clr Drug Dosing mL/min Estimated GFR (MDRD) (>60) mL/min BUN/Creatinine Ratio (14-18) Glucose 767 H* (83-115) mg/dL POC Glucose (83-110) mg/dL Serum Osmolality (280-300) mosm/kg Lactic Acid 1.9 (0.4-2.0) mmol/L Calcium (8.5-10.1) mg/dL Magnesium (1.8-2.4) mg/dl Total Bilirubin (0.2-1.0) mg/dL AST (15-37) U/L ALT (14-59) U/L Alkaline Phosphatase (46-116) U/L NT-Pro-B Natriuret Pep (0-450) pg/mL Total Protein (6.4-8.2) g/dl Albumin (3.4-5.0) g/dl Globulin gm/dL Albumin/Globulin Ratio (1-2) Urine Color (Yellow) Urine Appearance (Clear) Urine pH (5.0-8.0) Ur Specific [place] (1.005-1.030) Urine Protein (Negative) Urine Glucose (UA) (Negative) Urine Ketones (Negative) Urine Occult Blood (Negative) Urine Nitrite (Negative) Urine Bilirubin (Negative) Urine Urobilinogen (0.2-1.0) Ur Leukocyte Esterase (Negative) Ketones (0.0-0.3) mM MRSA (PCR) 10/31/19 10/31/19 10/31/19 Range/Units 14:11 14:11 14:40 WBC (3.98-10.04) K/mm3 RBC (3.98-5.22) M/mm3 Hgb (11.2-15.7) gm/dl Hct (34.1-44.9) % MCV (79.4-94.8) fl MCH (25.6-32.2) pg MCHC (32.2-35.5) g/dl RDW Std Deviation (36.4-46.3) fL Plt Count (182-369) K/mm3 MPV (9.4-12.3) fl Neut % (Auto) (34.0-71.1) % Lymph % (Auto) (19.3-51.7) % [place] % (Auto) (4.7-12.5) % Eos % (Auto) (0.7-5.8) Baso % (Auto) (0.1-1.2) % Neut # (Auto) (1.56-6.13) K/mm3 Lymph # (Auto) (1.18-3.74) K/mm3 [place] # (Auto) (0.24-0.36) K/mm3 Eos # (Auto) (0.04-0.36) K/mm3 Baso # (Auto) (0.01-0.08) K/mm3 Neutrophils % (Manual) (40-60) % Band Neutrophils % (0-10) % Lymphocytes % (Manual) (20-40) % Atypical Lymphs % % Monocytes % (Manual) (2-10) % Eosinophils % (Manual) (0.7-5.8) % Basophils % (Manual) (0.1-1.2) Manual Slide Review Platelet Estimate Hypochromasia Target Cells Tear Drop Cells RBC Morph Comment PT (9.7-12.0) SECONDS INR Puncture Site ABG pH (7.35-7.45) ABG pCO2 (35.0-45.0) mmHg ABG pO2 (80.0-100.0) mmHg ABG HCO3 (22.0-26.0) meq/L ABG O2 Saturation (96.0-97.0) % ABG Base Excess (-2-2.0) Efrem Test A-a Gradient mmHg O2 Delivery Device Oxygen Flow Rate FiO2 (21.00-100.00) % Sodium 153 H (136-145) mEq/L Potassium 3.5 (3.5-5.1) mEq/L Chloride 111 H (98-107) mEq/L Carbon Dioxide 31 (21-32) mEq/L Anion Gap 14.5 (5-15) BUN 74 H (7-18) mg/dL Creatinine 2.5 H (0.55-1.02) mg/dL Est Cr Clr Drug Dosing 14.35 mL/min Estimated GFR (MDRD) 18 (>60) mL/min BUN/Creatinine Ratio 29.6 H (14-18) Glucose 842 H* (83-115) mg/dL POC Glucose (83-110) mg/dL Serum Osmolality 390 H (280-300) mosm/kg Lactic Acid (0.4-2.0) mmol/L Calcium 8.3 L (8.5-10.1) mg/dL Magnesium 2.5 H (1.8-2.4) mg/dl Total Bilirubin (0.2-1.0) mg/dL AST (15-37) U/L ALT (14-59) U/L Alkaline Phosphatase (46-116) U/L NT-Pro-B Natriuret Pep (0-450) pg/mL Total Protein (6.4-8.2) g/dl Albumin (3.4-5.0) g/dl Globulin gm/dL Albumin/Globulin Ratio (1-2) Urine Color (Yellow) Urine Appearance (Clear) Urine pH (5.0-8.0) Ur Specific [place] (1.005-1.030) Urine Protein (Negative) Urine Glucose (UA) (Negative) Urine Ketones (Negative) Urine Occult Blood (Negative) Urine Nitrite (Negative) Urine Bilirubin (Negative) Urine Urobilinogen (0.2-1.0) Ur Leukocyte Esterase (Negative) Ketones (0.0-0.3) mM MRSA (PCR) Positive H 10/31/19 10/31/19 10/31/19 Range/Units 16:30 18:50 19:30 WBC (3.98-10.04) K/mm3 RBC (3.98-5.22) M/mm3 Hgb (11.2-15.7) gm/dl Hct (34.1-44.9) % MCV (79.4-94.8) fl MCH (25.6-32.2) pg MCHC (32.2-35.5) g/dl RDW Std Deviation (36.4-46.3) fL Plt Count (182-369) K/mm3 MPV (9.4-12.3) fl Neut % (Auto) (34.0-71.1) % Lymph % (Auto) (19.3-51.7) % [place] % (Auto) (4.7-12.5) % Eos % (Auto) (0.7-5.8) Baso % (Auto) (0.1-1.2) % Neut # (Auto) (1.56-6.13) K/mm3 Lymph # (Auto) (1.18-3.74) K/mm3 [place] # (Auto) (0.24-0.36) K/mm3 Eos # (Auto) (0.04-0.36) K/mm3 Baso # (Auto) (0.01-0.08) K/mm3 Neutrophils % (Manual) (40-60) % Band Neutrophils % (0-10) % Lymphocytes % (Manual) (20-40) % Atypical Lymphs % % Monocytes % (Manual) (2-10) % Eosinophils % (Manual) (0.7-5.8) % Basophils % (Manual) (0.1-1.2) Manual Slide Review Platelet Estimate Hypochromasia Target Cells Tear Drop Cells RBC Morph Comment PT (9.7-12.0) SECONDS INR Puncture Site Rt radial ABG pH 7.29 L (7.35-7.45) ABG pCO2 65.6 H (35.0-45.0) mmHg ABG pO2 68.0 L (80.0-100.0) mmHg ABG HCO3 30.5 H (22.0-26.0) meq/L ABG O2 Saturation 91.9 L (96.0-97.0) % ABG Base Excess 2.6 H (-2-2.0) Efrem Test A-a Gradient 136 mmHg O2 Delivery Device Venti mask Oxygen Flow Rate FiO2 40.00 (21.00-100.00) % Sodium 154 H 154 H (136-145) mEq/L Potassium 2.8 L 3.5 (3.5-5.1) mEq/L Chloride 112 H 113 H (98-107) mEq/L Carbon Dioxide 31 30 (21-32) mEq/L Anion Gap 13.8 14.5 (5-15) BUN 76 H 71 H (7-18) mg/dL Creatinine 2.4 H 2.4 H (0.55-1.02) mg/dL Est Cr Clr Drug Dosing 14.95 14.95 mL/min Estimated GFR (MDRD) 19 19 (>60) mL/min BUN/Creatinine Ratio 31.7 H 29.6 H (14-18) Glucose 696 H* 488 H (83-115) mg/dL POC Glucose (83-110) mg/dL Serum Osmolality (280-300) mosm/kg Lactic Acid (0.4-2.0) mmol/L Calcium 8.4 L 8.2 L (8.5-10.1) mg/dL Magnesium 2.4 (1.8-2.4) mg/dl Total Bilirubin (0.2-1.0) mg/dL AST (15-37) U/L ALT (14-59) U/L Alkaline Phosphatase (46-116) U/L NT-Pro-B Natriuret Pep (0-450) pg/mL Total Protein (6.4-8.2) g/dl Albumin (3.4-5.0) g/dl Globulin gm/dL Albumin/Globulin Ratio (1-2) Urine Color (Yellow) Urine Appearance (Clear) Urine pH (5.0-8.0) Ur Specific [place] (1.005-1.030) Urine Protein (Negative) Urine Glucose (UA) (Negative) Urine Ketones (Negative) Urine Occult Blood (Negative) Urine Nitrite (Negative) Urine Bilirubin (Negative) Urine Urobilinogen (0.2-1.0) Ur Leukocyte Esterase (Negative) Ketones (0.0-0.3) mM MRSA (PCR) 10/31/19 10/31/19 10/31/19 Range/Units 20:05 21:14 22:12 WBC (3.98-10.04) K/mm3 RBC (3.98-5.22) M/mm3 Hgb (11.2-15.7) gm/dl Hct (34.1-44.9) % MCV (79.4-94.8) fl MCH (25.6-32.2) pg MCHC (32.2-35.5) g/dl RDW Std Deviation (36.4-46.3) fL Plt Count (182-369) K/mm3 MPV (9.4-12.3) fl Neut % (Auto) (34.0-71.1) % Lymph % (Auto) (19.3-51.7) % [place] % (Auto) (4.7-12.5) % Eos % (Auto) (0.7-5.8) Baso % (Auto) (0.1-1.2) % Neut # (Auto) (1.56-6.13) K/mm3 Lymph # (Auto) (1.18-3.74) K/mm3 [place] # (Auto) (0.24-0.36) K/mm3 Eos # (Auto) (0.04-0.36) K/mm3 Baso # (Auto) (0.01-0.08) K/mm3 Neutrophils % (Manual) (40-60) % Band Neutrophils % (0-10) % Lymphocytes % (Manual) (20-40) % Atypical Lymphs % % Monocytes % (Manual) (2-10) % Eosinophils % (Manual) (0.7-5.8) % Basophils % (Manual) (0.1-1.2) Manual Slide Review Platelet Estimate Hypochromasia Target Cells Tear Drop Cells RBC Morph Comment PT (9.7-12.0) SECONDS INR Puncture Site ABG pH (7.35-7.45) ABG pCO2 (35.0-45.0) mmHg ABG pO2 (80.0-100.0) mmHg ABG HCO3 (22.0-26.0) meq/L ABG O2 Saturation (96.0-97.0) % ABG Base Excess (-2-2.0) Efrem Test A-a Gradient mmHg O2 Delivery Device Oxygen Flow Rate FiO2 (21.00-100.00) % Sodium 152 H (136-145) mEq/L Potassium 4.1 (3.5-5.1) mEq/L Chloride 113 H (98-107) mEq/L Carbon Dioxide 30 (21-32) mEq/L Anion Gap 13.1 (5-15) BUN 68 H (7-18) mg/dL Creatinine 2.1 H (0.55-1.02) mg/dL Est Cr Clr Drug Dosing 17.09 mL/min Estimated GFR (MDRD) 23 (>60) mL/min BUN/Creatinine Ratio 32.4 H (14-18) Glucose 467 H (83-115) mg/dL POC Glucose 393 H 319 H (83-110) mg/dL Serum Osmolality (280-300) mosm/kg Lactic Acid (0.4-2.0) mmol/L Calcium 8.1 L (8.5-10.1) mg/dL Magnesium 2.2 (1.8-2.4) mg/dl Total Bilirubin (0.2-1.0) mg/dL AST (15-37) U/L ALT (14-59) U/L Alkaline Phosphatase (46-116) U/L NT-Pro-B Natriuret Pep (0-450) pg/mL Total Protein (6.4-8.2) g/dl Albumin (3.4-5.0) g/dl Globulin gm/dL Albumin/Globulin Ratio (1-2) Urine Color (Yellow) Urine Appearance (Clear) Urine pH (5.0-8.0) Ur Specific [place] (1.005-1.030) Urine Protein (Negative) Urine Glucose (UA) (Negative) Urine Ketones (Negative) Urine Occult Blood (Negative) Urine Nitrite (Negative) Urine Bilirubin (Negative) Urine Urobilinogen (0.2-1.0) Ur Leukocyte Esterase (Negative) Ketones (0.0-0.3) mM MRSA (PCR) 10/31/19 11/01/19 11/01/19 Range/Units 23:06 00:04 00:40 WBC (3.98-10.04) K/mm3 RBC (3.98-5.22) M/mm3 Hgb (11.2-15.7) gm/dl Hct (34.1-44.9) % MCV (79.4-94.8) fl MCH (25.6-32.2) pg MCHC (32.2-35.5) g/dl RDW Std Deviation (36.4-46.3) fL Plt Count (182-369) K/mm3 MPV (9.4-12.3) fl Neut % (Auto) (34.0-71.1) % Lymph % (Auto) (19.3-51.7) % [place] % (Auto) (4.7-12.5) % Eos % (Auto) (0.7-5.8) Baso % (Auto) (0.1-1.2) % Neut # (Auto) (1.56-6.13) K/mm3 Lymph # (Auto) (1.18-3.74) K/mm3 [place] # (Auto) (0.24-0.36) K/mm3 Eos # (Auto) (0.04-0.36) K/mm3 Baso # (Auto) (0.01-0.08) K/mm3 Neutrophils % (Manual) (40-60) % Band Neutrophils % (0-10) % Lymphocytes % (Manual) (20-40) % Atypical Lymphs % % Monocytes % (Manual) (2-10) % Eosinophils % (Manual) (0.7-5.8) % Basophils % (Manual) (0.1-1.2) Manual Slide Review Platelet Estimate Hypochromasia Target Cells Tear Drop Cells RBC Morph Comment PT (9.7-12.0) SECONDS INR Puncture Site ABG pH (7.35-7.45) ABG pCO2 (35.0-45.0) mmHg ABG pO2 (80.0-100.0) mmHg ABG HCO3 (22.0-26.0) meq/L ABG O2 Saturation (96.0-97.0) % ABG Base Excess (-2-2.0) Efrem Test A-a Gradient mmHg O2 Delivery Device Oxygen Flow Rate FiO2 (21.00-100.00) % Sodium 151 H (136-145) mEq/L Potassium 3.9 (3.5-5.1) mEq/L Chloride 115 H (98-107) mEq/L Carbon Dioxide 31 (21-32) mEq/L Anion Gap 8.9 (5-15) BUN 62 H (7-18) mg/dL Creatinine 1.8 H (0.55-1.02) mg/dL Est Cr Clr Drug Dosing 19.93 mL/min Estimated GFR (MDRD) 27 (>60) mL/min BUN/Creatinine Ratio 34.4 H (14-18) Glucose 298 H (83-115) mg/dL POC Glucose 288 H 329 H (83-110) mg/dL Serum Osmolality (280-300) mosm/kg Lactic Acid (0.4-2.0) mmol/L Calcium 7.6 L (8.5-10.1) mg/dL Magnesium 2.1 (1.8-2.4) mg/dl Total Bilirubin (0.2-1.0) mg/dL AST (15-37) U/L ALT (14-59) U/L Alkaline Phosphatase (46-116) U/L NT-Pro-B Natriuret Pep (0-450) pg/mL Total Protein (6.4-8.2) g/dl Albumin (3.4-5.0) g/dl Globulin gm/dL Albumin/Globulin Ratio (1-2) Urine Color (Yellow) Urine Appearance (Clear) Urine pH (5.0-8.0) Ur Specific [place] (1.005-1.030) Urine Protein (Negative) Urine Glucose (UA) (Negative) Urine Ketones (Negative) Urine Occult Blood (Negative) Urine Nitrite (Negative) Urine Bilirubin (Negative) Urine Urobilinogen (0.2-1.0) Ur Leukocyte Esterase (Negative) Ketones (0.0-0.3) mM MRSA (PCR) 11/01/19 11/01/19 11/01/19 Range/Units 01:07 02:05 03:05 WBC (3.98-10.04) K/mm3 RBC (3.98-5.22) M/mm3 Hgb (11.2-15.7) gm/dl Hct (34.1-44.9) % MCV (79.4-94.8) fl MCH (25.6-32.2) pg MCHC (32.2-35.5) g/dl RDW Std Deviation (36.4-46.3) fL Plt Count (182-369) K/mm3 MPV (9.4-12.3) fl Neut % (Auto) (34.0-71.1) % Lymph % (Auto) (19.3-51.7) % [place] % (Auto) (4.7-12.5) % Eos % (Auto) (0.7-5.8) Baso % (Auto) (0.1-1.2) % Neut # (Auto) (1.56-6.13) K/mm3 Lymph # (Auto) (1.18-3.74) K/mm3 [place] # (Auto) (0.24-0.36) K/mm3 Eos # (Auto) (0.04-0.36) K/mm3 Baso # (Auto) (0.01-0.08) K/mm3 Neutrophils % (Manual) (40-60) % Band Neutrophils % (0-10) % Lymphocytes % (Manual) (20-40) % Atypical Lymphs % % Monocytes % (Manual) (2-10) % Eosinophils % (Manual) (0.7-5.8) % Basophils % (Manual) (0.1-1.2) Manual Slide Review Platelet Estimate Hypochromasia Target Cells Tear Drop Cells RBC Morph Comment PT (9.7-12.0) SECONDS INR Puncture Site ABG pH (7.35-7.45) ABG pCO2 (35.0-45.0) mmHg ABG pO2 (80.0-100.0) mmHg ABG HCO3 (22.0-26.0) meq/L ABG O2 Saturation (96.0-97.0) % ABG Base Excess (-2-2.0) Efrem Test A-a Gradient mmHg O2 Delivery Device Oxygen Flow Rate FiO2 (21.00-100.00) % Sodium (136-145) mEq/L Potassium (3.5-5.1) mEq/L Chloride (98-107) mEq/L Carbon Dioxide (21-32) mEq/L Anion Gap (5-15) BUN (7-18) mg/dL Creatinine (0.55-1.02) mg/dL Est Cr Clr Drug Dosing mL/min Estimated GFR (MDRD) (>60) mL/min BUN/Creatinine Ratio (14-18) Glucose (83-115) mg/dL POC Glucose 250 H 290 H 236 H (83-110) mg/dL Serum Osmolality (280-300) mosm/kg Lactic Acid (0.4-2.0) mmol/L Calcium (8.5-10.1) mg/dL Magnesium (1.8-2.4) mg/dl Total Bilirubin (0.2-1.0) mg/dL AST (15-37) U/L ALT (14-59) U/L Alkaline Phosphatase (46-116) U/L NT-Pro-B Natriuret Pep (0-450) pg/mL Total Protein (6.4-8.2) g/dl Albumin (3.4-5.0) g/dl Globulin gm/dL Albumin/Globulin Ratio (1-2) Urine Color (Yellow) Urine Appearance (Clear) Urine pH (5.0-8.0) Ur Specific [place] (1.005-1.030) Urine Protein (Negative) Urine Glucose (UA) (Negative) Urine Ketones (Negative) Urine Occult Blood (Negative) Urine Nitrite (Negative) Urine Bilirubin (Negative) Urine Urobilinogen (0.2-1.0) Ur Leukocyte Esterase (Negative) Ketones (0.0-0.3) mM MRSA (PCR) 11/01/19 11/01/19 11/01/19 Range/Units 04:07 04:22 04:22 WBC 15.93 H (3.98-10.04) K/mm3 RBC 4.19 (3.98-5.22) M/mm3 Hgb 12.5 D (11.2-15.7) gm/dl Hct 42.1 (34.1-44.9) % MCV 100.5 H (79.4-94.8) fl MCH 29.8 (25.6-32.2) pg MCHC 29.7 L (32.2-35.5) g/dl RDW Std Deviation 52.7 H (36.4-46.3) fL Plt Count 175 L D (182-369) K/mm3 MPV 12.9 H (9.4-12.3) fl Neut % (Auto) 79.5 H (34.0-71.1) % Lymph % (Auto) 16.6 L (19.3-51.7) % [place] % (Auto) 3.4 L (4.7-12.5) % Eos % (Auto) 0.1 L (0.7-5.8) Baso % (Auto) 0.1 (0.1-1.2) % Neut # (Auto) 12.68 H (1.56-6.13) K/mm3 Lymph # (Auto) 2.64 (1.18-3.74) K/mm3 [place] # (Auto) 0.54 H (0.24-0.36) K/mm3 Eos # (Auto) 0.02 L (0.04-0.36) K/mm3 Baso # (Auto) 0.01 (0.01-0.08) K/mm3 Neutrophils % (Manual) (40-60) % Band Neutrophils % (0-10) % Lymphocytes % (Manual) (20-40) % Atypical Lymphs % % Monocytes % (Manual) (2-10) % Eosinophils % (Manual) (0.7-5.8) % Basophils % (Manual) (0.1-1.2) Manual Slide Review Abnormal smear Platelet Estimate Hypochromasia Target Cells Tear Drop Cells RBC Morph Comment PT (9.7-12.0) SECONDS INR Puncture Site ABG pH (7.35-7.45) ABG pCO2 (35.0-45.0) mmHg ABG pO2 (80.0-100.0) mmHg ABG HCO3 (22.0-26.0) meq/L ABG O2 Saturation (96.0-97.0) % ABG Base Excess (-2-2.0) Efrem Test A-a Gradient mmHg O2 Delivery Device Oxygen Flow Rate FiO2 (21.00-100.00) % Sodium 150 H (136-145) mEq/L Potassium 3.8 (3.5-5.1) mEq/L Chloride 113 H (98-107) mEq/L Carbon Dioxide 31 (21-32) mEq/L Anion Gap 9.8 (5-15) BUN 57 H (7-18) mg/dL Creatinine 1.5 H (0.55-1.02) mg/dL Est Cr Clr Drug Dosing 23.92 mL/min Estimated GFR (MDRD) 33 (>60) mL/min BUN/Creatinine Ratio 38.0 H (14-18) Glucose 259 H (83-115) mg/dL POC Glucose 224 H (83-110) mg/dL Serum Osmolality (280-300) mosm/kg Lactic Acid (0.4-2.0) mmol/L Calcium 7.4 L (8.5-10.1) mg/dL Magnesium 2.1 (1.8-2.4) mg/dl Total Bilirubin 0.2 (0.2-1.0) mg/dL AST 37 (15-37) U/L ALT 24 (14-59) U/L Alkaline Phosphatase 75 (46-116) U/L NT-Pro-B Natriuret Pep (0-450) pg/mL Total Protein 5.7 L (6.4-8.2) g/dl Albumin 2.6 L (3.4-5.0) g/dl Globulin 3.1 gm/dL Albumin/Globulin Ratio 0.8 L (1-2) Urine Color (Yellow) Urine Appearance (Clear) Urine pH (5.0-8.0) Ur Specific [place] (1.005-1.030) Urine Protein (Negative) Urine Glucose (UA) (Negative) Urine Ketones (Negative) Urine Occult Blood (Negative) Urine Nitrite (Negative) Urine Bilirubin (Negative) Urine Urobilinogen (0.2-1.0) Ur Leukocyte Esterase (Negative) Ketones (0.0-0.3) mM MRSA (PCR) 11/01/19 11/01/19 11/01/19 Range/Units 05:13 06:05 08:06 WBC (3.98-10.04) K/mm3 RBC (3.98-5.22) M/mm3 Hgb (11.2-15.7) gm/dl Hct (34.1-44.9) % MCV (79.4-94.8) fl MCH (25.6-32.2) pg MCHC (32.2-35.5) g/dl RDW Std Deviation (36.4-46.3) fL Plt Count (182-369) K/mm3 MPV (9.4-12.3) fl Neut % (Auto) (34.0-71.1) % Lymph % (Auto) (19.3-51.7) % [place] % (Auto) (4.7-12.5) % Eos % (Auto) (0.7-5.8) Baso % (Auto) (0.1-1.2) % Neut # (Auto) (1.56-6.13) K/mm3 Lymph # (Auto) (1.18-3.74) K/mm3 [place] # (Auto) (0.24-0.36) K/mm3 Eos # (Auto) (0.04-0.36) K/mm3 Baso # (Auto) (0.01-0.08) K/mm3 Neutrophils % (Manual) (40-60) % Band Neutrophils % (0-10) % Lymphocytes % (Manual) (20-40) % Atypical Lymphs % % Monocytes % (Manual) (2-10) % Eosinophils % (Manual) (0.7-5.8) % Basophils % (Manual) (0.1-1.2) Manual Slide Review Platelet Estimate Hypochromasia Target Cells Tear Drop Cells RBC Morph Comment PT (9.7-12.0) SECONDS INR Puncture Site ABG pH (7.35-7.45) ABG pCO2 (35.0-45.0) mmHg ABG pO2 (80.0-100.0) mmHg ABG HCO3 (22.0-26.0) meq/L ABG O2 Saturation (96.0-97.0) % ABG Base Excess (-2-2.0) Efrem Test A-a Gradient mmHg O2 Delivery Device Oxygen Flow Rate FiO2 (21.00-100.00) % Sodium (136-145) mEq/L Potassium (3.5-5.1) mEq/L Chloride (98-107) mEq/L Carbon Dioxide (21-32) mEq/L Anion Gap (5-15) BUN (7-18) mg/dL Creatinine (0.55-1.02) mg/dL Est Cr Clr Drug Dosing mL/min Estimated GFR (MDRD) (>60) mL/min BUN/Creatinine Ratio (14-18) Glucose (83-115) mg/dL POC Glucose 235 H 260 H 232 H (83-110) mg/dL Serum Osmolality (280-300) mosm/kg Lactic Acid (0.4-2.0) mmol/L Calcium (8.5-10.1) mg/dL Magnesium (1.8-2.4) mg/dl Total Bilirubin (0.2-1.0) mg/dL AST (15-37) U/L ALT (14-59) U/L Alkaline Phosphatase (46-116) U/L NT-Pro-B Natriuret Pep (0-450) pg/mL Total Protein (6.4-8.2) g/dl Albumin (3.4-5.0) g/dl Globulin gm/dL Albumin/Globulin Ratio (1-2) Urine Color (Yellow) Urine Appearance (Clear) Urine pH (5.0-8.0) Ur Specific [place] (1.005-1.030) Urine Protein (Negative) Urine Glucose (UA) (Negative) Urine Ketones (Negative) Urine Occult Blood (Negative) Urine Nitrite (Negative) Urine Bilirubin (Negative) Urine Urobilinogen (0.2-1.0) Ur Leukocyte Esterase (Negative) Ketones (0.0-0.3) mM MRSA (PCR) 11/01/19 11/01/19 Range/Units 09:27 10:06 WBC (3.98-10.04) K/mm3 RBC (3.98-5.22) M/mm3 Hgb (11.2-15.7) gm/dl Hct (34.1-44.9) % MCV (79.4-94.8) fl MCH (25.6-32.2) pg MCHC (32.2-35.5) g/dl RDW Std Deviation (36.4-46.3) fL Plt Count (182-369) K/mm3 MPV (9.4-12.3) fl Neut % (Auto) (34.0-71.1) % Lymph % (Auto) (19.3-51.7) % [place]ison % (Auto) (4.7-12.5) % Eos % (Auto) (0.7-5.8) Baso % (Auto) (0.1-1.2) % Neut # (Auto) (1.56-6.13) K/mm3 Lymph # (Auto) (1.18-3.74) K/mm3 Addison # (Auto) (0.24-0.36) K/mm3 Eos # (Auto) (0.04-0.36) K/mm3 Baso # (Auto) (0.01-0.08) K/mm3 Neutrophils % (Manual) (40-60) % Band Neutrophils % (0-10) % Lymphocytes % (Manual) (20-40) % Atypical Lymphs % % Monocytes % (Manual) (2-10) % Eosinophils % (Manual) (0.7-5.8) % Basophils % (Manual) (0.1-1.2) Manual Slide Review Platelet Estimate Hypochromasia Target Cells Tear Drop Cells RBC Morph Comment PT (9.7-12.0) SECONDS INR Puncture Site ABG pH (7.35-7.45) ABG pCO2 (35.0-45.0) mmHg ABG pO2 (80.0-100.0) mmHg ABG HCO3 (22.0-26.0) meq/L ABG O2 Saturation (96.0-97.0) % ABG Base Excess (-2-2.0) Efrem Test A-a Gradient mmHg O2 Delivery Device Oxygen Flow Rate FiO2 (21.00-100.00) % Sodium (136-145) mEq/L Potassium (3.5-5.1) mEq/L Chloride (98-107) mEq/L Carbon Dioxide (21-32) mEq/L Anion Gap (5-15) BUN (7-18) mg/dL Creatinine (0.55-1.02) mg/dL Est Cr Clr Drug Dosing mL/min Estimated GFR (MDRD) (>60) mL/min BUN/Creatinine Ratio (14-18) Glucose (83-115) mg/dL POC Glucose 217 H 208 H (83-110) mg/dL Serum Osmolality (280-300) mosm/kg Lactic Acid (0.4-2.0) mmol/L Calcium (8.5-10.1) mg/dL Magnesium (1.8-2.4) mg/dl Total Bilirubin (0.2-1.0) mg/dL AST (15-37) U/L ALT (14-59) U/L Alkaline Phosphatase (46-116) U/L NT-Pro-B Natriuret Pep (0-450) pg/mL Total Protein (6.4-8.2) g/dl Albumin (3.4-5.0) g/dl Globulin gm/dL Albumin/Globulin Ratio (1-2) Urine Color (Yellow) Urine Appearance (Clear) Urine pH (5.0-8.0) Ur Specific [place] (1.005-1.030) Urine Protein (Negative) Urine Glucose (UA) (Negative) Urine Ketones (Negative) Urine Occult Blood (Negative) Urine Nitrite (Negative) Urine Bilirubin (Negative) Urine Urobilinogen (0.2-1.0) Ur Leukocyte Esterase (Negative) Ketones (0.0-0.3) mM MRSA (PCR) Andrea Results Last 24 Hours: Microbiology 10/31/19 09:55 Aerobic Blood Culture - Preliminary Blood - Venous - Lab Draw NO GROWTH AFTER 1 DAY Anaerobic Blood Culture - Preliminary NO GROWTH AFTER 1 DAY 10/31/19 09:35 Aerobic Blood Culture - Preliminary Blood - Venous NO GROWTH AFTER 1 DAY Anaerobic Blood Culture - Preliminary NO GROWTH AFTER 1 DAY 10/31/19 20:36 Influenza Type A Antigen Screen - Final Nasal, Unspecified NEGATIVE INFLUENZA A VIRUS AG REFERENCE RANGE: NEGATIVE Influenza Type B Antigen Screen - Final NEGATIVE INFLUENZA B VIRUS AG REFERENCE RANGE: NEGATIVE Med Orders - Current: Current Medications Insulin Human Regular 100 unit (/ Sodium Chloride) 100 mls @ 6.19 mls/hr IV TITRATE [facility]; Protocol Last Titration: 11/01/19 09:38 Dose: 0.01 units/kg/hr, 1 mls/hr Ceftriaxone Sodium 2 gm/ (Sodium Chloride) 100 mls @ 200 mls/hr IV Q24H [facility] Last Admin: 11/01/19 09:42 Dose: 200 mls/hr Potassium Chloride/Dextrose/Sod Cl (D5 1/2 Ns W/ 20 Meq/L Kcl) 1,000 mls @ 150 mls/hr IV ASDIRECTED [facility]RIE Last Admin: 11/01/19 10:16 Dose: 150 mls/hr Ondansetron HCl (Zofran) 4 mg IV Q4H PRN PRN Reason: Nausea/Vomiting Sodium Chloride (Saline Flush) 10 ml FLUSH ASDIRECTED PRN PRN Reason: Keep Vein Open Last Admin: 10/31/19 09:31 Dose: 10 ml Discontinued Medications Sodium Chloride (Normal Saline) 1,000 mls @ 999 mls/hr IV BOLUS ONE Stop: 10/31/19 10:17 Last Admin: 10/31/19 09:31 Dose: 999 mls/hr Ceftriaxone Sodium 2 gm/ (Sodium Chloride) 100 mls @ 200 mls/hr IV ONETIME ONE Stop: 10/31/19 10:56 Last Admin: 10/31/19 10:47 Dose: 200 mls/hr Lactated Ringer's (Ringers, Lactated) 1,000 mls @ 999 mls/hr IV ASDIRECTED [facility]RIE Last Admin: 10/31/19 10:47 Dose: 999 mls/hr Lactated Ringer's (Ringers, Lactated) 1,000 mls @ 150 mls/hr IV ASDIRECTED [facility]RI[facility] Last Admin: 10/31/19 11:39 Dose: 150 mls/hr Sodium Chloride (Sodium Chloride 0.45%) 1,000 mls @ 250 mls/hr IV ASDIRECTED [facility]RI[facility] Last Infusion: 10/31/19 16:42 Dose: 350 mls/hr Potassium Chloride 10 meq/ (Premix) 100 mls @ 100 mls/hr IV Q1H [facility] Stop: 10/31/19 17:59 Last Admin: 10/31/19 17:45 Dose: 100 mls/hr Sodium Chloride (Sodium Chloride 0.45%) 1,000 mls @ 350 mls/hr IV ASDIRECTED [facility] Potassium Chloride/Sodium Chloride (1/2 Ns With 20 Meq Kcl) 1,000 mls @ 250 mls /hr IV ASDIRECTED [facility] Potassium Chloride 10 meq/ (Premix) 100 mls @ 100 mls/hr IV Q1H [facility] Stop: 10/31/19 21:59 Last Admin: 11/01/19 01:20 Dose: Not Given Potassium Chloride/Sodium Chloride (1/2 Ns With 20 Meq Kcl) 1,000 mls @ 250 mls /hr IV ASDIRECTED [facility]RIE Sodium Chloride (Sodium Chloride 0.45%) 1,000 mls @ 150 mls/hr IV ASDIRECTED [facility]RI[facility] Last Infusion: 10/31/19 22:00 Dose: 150 mls/hr Potassium Chloride 10 meq/ (Premix) 100 mls @ 100 mls/hr IV Q1H [facility] Stop: 10/31/19 20:44 Last Admin: 10/31/19 20:07 Dose: 100 mls/hr Dextrose/Sodium Chloride (Dextrose 5%-1/2 Ns) 1,000 mls @ 150 mls/hr IV ASDIRECTED [facility] Last Admin: 11/01/19 05:49 Dose: 150 mls/hr Potassium Chloride 10 meq/ (Premix) 100 mls @ 25 mls/hr IV Q1H [facility] Stop: 11/01/19 05:29 Last Admin: 11/01/19 05:10 Dose: 25 mls/hr Insulin Human Regular (Humulin R) 6 unit IV ONETIME ONE Stop: 10/31/19 15:25 Last Admin: 10/31/19 16:15 Dose: 6 unit - Exam Quality Assessment: Supplemental Oxygen, Urine Catheter General: Alert HEENT: Pupils Equal Neck: Supple Lungs: Clear to Auscultation, Normal Respiratory Effort Cardiovascular: Regular Rate, Regular Rhythm GI/Abdominal Exam: Normal Bowel Sounds, Soft, Non-Tender, No Distention Extremities: Normal Inspection, Normal Range of Motion, Non-Tender, No Pedal Edema Skin: Warm, Dry, Intact Psy/Mental Status: No: Alert - Problem List Review Problem List Initiated/Reviewed/Updated: Yes - My Orders Last 24 Hours: My Active Orders 10/31/19 14:01 Blood Glucose Check, Bedside [RC] Q1H 10/31/19 15:12 Oxygen Therapy [RC] PRN Up With Assistance [RC] ASDIRECTED VTE/DVT Education [RC] PER UNIT ROUTINE Vital Signs [RC] Q4HR Ondansetron [Zofran] 4 mg IV Q4H PRN Sequential Compression Device [OM.PC] Per Unit Routine Resuscitation Status Routine 10/31/19 15:13 Antiembolic Devices [RC] PER UNIT ROUTINE 10/31/19 15:30 Insulin Regular, Human [HumuLIN R] 100 unit Sodium Chloride 0.9% [Normal Saline] 99 ml IV TITRATE 10/31/19 Dinner Nothing per Oral Now Diet [DIET] 11/01/19 09:45 D5 1/2 NS w/ 20 mEq/L KCl 1,000 ml IV ASDIRECTED 11/01/19 10:00 Ang Pelvis [CT] Urgent CTA Abdomen W & W/O Contrast [Ang Abdomen] [CT] Routine ABG [BLOOD GAS ARTERIAL] [BG] Stat cefTRIAXone [Rocephin] 2 gm Sodium Chloride 0.9% [Normal Saline] 100 ml IV Q24H 11/01/19 10:09 Abdomen wo Cont [CT] Urgent 11/01/19 10:10 Abdomen Pelvis w Cont [CT] Urgent 11/01/19 10:13 Abdomen Pelvis w wo Cont [CT] Urgent 11/02/19 05:11 CBC WITH AUTO DIFF [HEME] AM CMP [COMPREHENSIVE METABOLIC PN,CMP] [CHEM] AM MAGNESIUM [CHEM] AM 11/03/19 05:11 CBC WITH AUTO DIFF [HEME] AM CMP [COMPREHENSIVE METABOLIC PN,CMP] [CHEM] AM MAGNESIUM [CHEM] AM 11/04/19 05:11 CBC WITH AUTO DIFF [HEME] AM CMP [COMPREHENSIVE METABOLIC PN,CMP] [CHEM] AM MAGNESIUM [CHEM] AM - Plan Plan:: Assessment * Hyperosmolar hyperglycemic state: No history of diabetes * Initial blood sugar 923, pH 7.32, bicarb 30, ketones 1.6 * Glucose now jose eduardo. 250 on insulin gtt and D5 1/2 NS * Fluid bolus with LR 2 L in the emergency room * Hypernatremia correcting with correction of hyperglycemia and hypovolemia. * Severe dementia * Nonverbal * Responds to simple commands * Chronic respiratory acidosis with hypoxemic/hypercapnic respiratory failure * History of COPD * Continue BiPAP prn * Lactic acidosis with anion gap * Initial lactic acid 2.4, anion gap 17.0 - repeat lactic acid and AG normal. * Acute renal failure * Initial BUN 83, creatinine 3.1 * Current BUN 57, creatinine 1.5 * Sepsis protocol initiated in the emergency room * Temperature 100.0 in the emergency room with elevated white count of over 16, 000, lactic acidosis, and anion gap * Blood cultures and Rocephin given in the emergency room * No current source of infection with normal chest x-ray and UA * Patient does have abdominal tenderness, therefore possible abdominal source * Repeat CXR: nothing acute. 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 Start at 0.3 units/KG/daily divided 50% glargine and 50 % prandial. * Glucose every hour until stable then QAC/Qhs * Diabetic Diet * Follow BMP and magnesium every 2-4 hours until off insulin drip then daily * Continue to follow respiratory status closely. Patient will require large amounts of fluids secondary to her hyperosmolar state which may precipitate pulmonary edema * CT abdomen. * Restart home meds when stable. * Monitor electrolytes. * Replenish potassium as needed. * Follow potassium closely. * VTE prophylaxis with SCDs we will consider Lovenox in the morning * CODE STATUS: DNR/DNI. I spoke at great length with family, 2 sisters and 2 brothers, about her high risk of mortality. They understand that she has upwards of 80% risk of mortality secondary to her severe multi-system failure. Patient will be placed on BiPAP if necessary, but they do not want central venous access or an arterial line. They also do not want intubation or resuscitation.
--- NOTE | 2019-11-01 12:55 | CT ---
CT abdomen and pelvis Technique: Multiple axial sections were obtained from above the dome of the diaphragm inferiorly through the pubic symphysis. Intravenous and oral contrast was not utilized. Comparison: No prior abdominal or pelvic CT study is available. Findings: Small bilateral pleural effusions are seen. 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 No focal abnormality is appreciated within the liver. Spleen appears within normal limits. Adrenal glands show slight nodularity on the left side believed to be incidental. Right adrenal gland is unremarkable. Vascular calcification is noted within the renal arteries including this segmental branches. Kidneys show no hydronephrosis. No ureteral dilatation or ureteral stone is seen. Gallbladder contains no calcified gallstones. Aorta shows diffuse atherosclerotic change which continues into the iliac vessels. No aneurysm is seen. No retroperitoneal adenopathy or mesenteric abnormalities are seen. Diverticuli are seen within the sigmoid colon without diverticulitis. Focal increased stool is noted within the rectum. No free fluid or inflammatory change is seen. Appendix not visualized with certainty. Love catheter is noted within the bladder. Bone window settings were reviewed which shows multiple endplate concavities. No acute osseous abnormality is suspected. Impression: 1. Small bilateral pleural effusions. 2. Focal increased stool within the rectum. 3. Other findings as described above believed to be incidental. Diagnostic code #2 This report was dictated in [place] [employer] Time
[2019-11-01] MEDS ORDERED: Insulin Lispro 100 Units/ML 3 ML Vial SUBCUT ONE (13:29)
[2019-11-01] MEDS ORDERED: 50% Dextrose in Water 50 ML Syringe IVPUSH PRN (16:35)
[2019-11-01] MEDS: Insulin Glarg,Human.Rec.Analog 100 UNIT/ML ML SUBCUT SCH ×2 (17:28→17:39)
[2019-11-01] MEDS: Insulin Lispro 100 Units/ML 3 ML Vial SUBCUT SCH ×2 (17:32→22:06)
[2019-11-01] MEDS ORDERED: Sodium Chloride 0.45% 1,000 ML IV SCH ×2 (20:45→21:15)
[2019-11-02] MEDS: Insulin Lispro 100 Units/ML 3 ML Vial SUBCUT SCH ×7 (06:39→21:48)
[2019-11-02] MEDS ORDERED: Furosemide 40 MG/4 ML VIAL IVPUSH ONE (08:02)
[2019-11-02] MEDS: cefTRIAXone 2 GM in Sodium Chloride 0.9% 100 ML IV SCH (09:13)
--- NOTE | 2019-11-02 10:16 | PCM.PN ---
- General Info Date of Service: 11/02/19 Admission Dx/Problem (Free Text): Admission Diagnosis/Problem Admission Diagnosis/Problem Hyperglycemic hyperosmolar nonketotic coma Subjective Update: Georgina is doing much better. She is eating and drinking. She is talking and responding to questions. - Review of Systems General: Reports: No Symptoms HEENT: Reports: No Symptoms Pulmonary: Reports: No Symptoms Cardiovascular: Reports: No Symptoms Gastrointestinal: Reports: No Symptoms - Patient Data Vitals - Most Recent: Last Vital Signs Temp 96.9 F 11/02/19 08:00 Pulse 102 H 11/02/19 04:16 Resp 22 H 11/02/19 08:00 BP 125/67 11/02/19 08:00 Pulse Ox 94 L 11/02/19 08:46 Weight - Most Recent: 159 lb I&O - Last 24 Hours: Intake & Output 11/01/19 11/02/19 11/02/19 22:59 06:59 14:59 Intake Total 1260 550 Output Total 370 425 360 Balance 890 125 -360 Lab Results Last 24 Hours: Laboratory Results - last 24 hr 11/01/19 11/01/19 11/01/19 Range/Units 10:24 10:32 11:20 WBC (3.98-10.04) K/mm3 RBC (3.98-5.22) M/mm3 Hgb (11.2-15.7) gm/dl Hct (34.1-44.9) % MCV (79.4-94.8) fl MCH (25.6-32.2) pg MCHC (32.2-35.5) g/dl RDW Std Deviation (36.4-46.3) fL Plt Count (182-369) K/mm3 MPV (9.4-12.3) fl Neut % (Auto) (34.0-71.1) % Lymph % (Auto) (19.3-51.7) % [place] % (Auto) (4.7-12.5) % Eos % (Auto) (0.7-5.8) Baso % (Auto) (0.1-1.2) % Neut # (Auto) (1.56-6.13) K/mm3 Lymph # (Auto) (1.18-3.74) K/mm3 [place] # (Auto) (0.24-0.36) K/mm3 Eos # (Auto) (0.04-0.36) K/mm3 Baso # (Auto) (0.01-0.08) K/mm3 Manual Slide Review Puncture Site Rt radial ABG pH 7.31 L (7.35-7.45) ABG pCO2 55.1 H (35.0-45.0) mmHg ABG pO2 70.0 L (80.0-100.0) mmHg ABG HCO3 27.0 H (22.0-26.0) meq/L ABG O2 Saturation 94.6 L (96.0-97.0) % ABG Base Excess 0.5 (-2-2.0) A-a Gradient 119 mmHg O2 Delivery Device Bipap FiO2 36.00 (21.00-100.00) % Sodium 149 H (136-145) mEq/L Potassium 3.8 (3.5-5.1) mEq/L Chloride 112 H (98-107) mEq/L Carbon Dioxide 28 (21-32) mEq/L Anion Gap 12.8 (5-15) BUN 47 H (7-18) mg/dL Creatinine 1.2 H (0.55-1.02) mg/dL Est Cr Clr Drug Dosing 29.90 mL/min Estimated GFR (MDRD) 43 (>60) mL/min BUN/Creatinine Ratio 39.2 H (14-18) Glucose 229 H (83-115) mg/dL POC Glucose 209 H (83-110) mg/dL Calcium 7.3 L (8.5-10.1) mg/dL Magnesium (1.8-2.4) mg/dl Total Bilirubin (0.2-1.0) mg/dL AST (15-37) U/L ALT (14-59) U/L Alkaline Phosphatase (46-116) U/L Total Protein (6.4-8.2) g/dl Albumin (3.4-5.0) g/dl Globulin gm/dL Albumin/Globulin Ratio (1-2) 11/01/19 11/01/19 11/01/19 Range/Units 13:15 14:05 15:06 WBC (3.98-10.04) K/mm3 RBC (3.98-5.22) M/mm3 Hgb (11.2-15.7) gm/dl Hct (34.1-44.9) % MCV (79.4-94.8) fl MCH (25.6-32.2) pg MCHC (32.2-35.5) g/dl RDW Std Deviation (36.4-46.3) fL Plt Count (182-369) K/mm3 MPV (9.4-12.3) fl Neut % (Auto) (34.0-71.1) % Lymph % (Auto) (19.3-51.7) % [place] % (Auto) (4.7-12.5) % Eos % (Auto) (0.7-5.8) Baso % (Auto) (0.1-1.2) % Neut # (Auto) (1.56-6.13) K/mm3 Lymph # (Auto) (1.18-3.74) K/mm3 [place] # (Auto) (0.24-0.36) K/mm3 Eos # (Auto) (0.04-0.36) K/mm3 Baso # (Auto) (0.01-0.08) K/mm3 Manual Slide Review Puncture Site ABG pH (7.35-7.45) ABG pCO2 (35.0-45.0) mmHg ABG pO2 (80.0-100.0) mmHg ABG HCO3 (22.0-26.0) meq/L ABG O2 Saturation (96.0-97.0) % ABG Base Excess (-2-2.0) A-a Gradient mmHg O2 Delivery Device FiO2 (21.00-100.00) % Sodium (136-145) mEq/L Potassium (3.5-5.1) mEq/L Chloride (98-107) mEq/L Carbon Dioxide (21-32) mEq/L Anion Gap (5-15) BUN (7-18) mg/dL Creatinine (0.55-1.02) mg/dL Est Cr Clr Drug Dosing mL/min Estimated GFR (MDRD) (>60) mL/min BUN/Creatinine Ratio (14-18) Glucose (83-115) mg/dL POC Glucose 231 H 240 H 228 H (83-110) mg/dL Calcium (8.5-10.1) mg/dL Magnesium (1.8-2.4) mg/dl Total Bilirubin (0.2-1.0) mg/dL AST (15-37) U/L ALT (14-59) U/L Alkaline Phosphatase (46-116) U/L Total Protein (6.4-8.2) g/dl Albumin (3.4-5.0) g/dl Globulin gm/dL Albumin/Globulin Ratio (1-2) 11/01/19 11/01/19 11/01/19 Range/Units 16:05 17:12 18:36 WBC (3.98-10.04) K/mm3 RBC (3.98-5.22) M/mm3 Hgb (11.2-15.7) gm/dl Hct (34.1-44.9) % MCV (79.4-94.8) fl MCH (25.6-32.2) pg MCHC (32.2-35.5) g/dl RDW Std Deviation (36.4-46.3) fL Plt Count (182-369) K/mm3 MPV (9.4-12.3) fl Neut % (Auto) (34.0-71.1) % Lymph % (Auto) (19.3-51.7) % [place] % (Auto) (4.7-12.5) % Eos % (Auto) (0.7-5.8) Baso % (Auto) (0.1-1.2) % Neut # (Auto) (1.56-6.13) K/mm3 Lymph # (Auto) (1.18-3.74) K/mm3 [place] # (Auto) (0.24-0.36) K/mm3 Eos # (Auto) (0.04-0.36) K/mm3 Baso # (Auto) (0.01-0.08) K/mm3 Manual Slide Review Puncture Site ABG pH (7.35-7.45) ABG pCO2 (35.0-45.0) mmHg ABG pO2 (80.0-100.0) mmHg ABG HCO3 (22.0-26.0) meq/L ABG O2 Saturation (96.0-97.0) % ABG Base Excess (-2-2.0) A-a Gradient mmHg O2 Delivery Device FiO2 (21.00-100.00) % Sodium 148 H (136-145) mEq/L Potassium 3.7 (3.5-5.1) mEq/L Chloride 113 H (98-107) mEq/L Carbon Dioxide 29 (21-32) mEq/L Anion Gap 9.7 (5-15) BUN 35 H (7-18) mg/dL Creatinine 1.0 (0.55-1.02) mg/dL Est Cr Clr Drug Dosing 35.88 mL/min Estimated GFR (MDRD) 53 (>60) mL/min BUN/Creatinine Ratio 35.0 H (14-18) Glucose 178 H (83-115) mg/dL POC Glucose 189 H 177 H (83-110) mg/dL Calcium 7.7 L (8.5-10.1) mg/dL Magnesium (1.8-2.4) mg/dl Total Bilirubin (0.2-1.0) mg/dL AST (15-37) U/L ALT (14-59) U/L Alkaline Phosphatase (46-116) U/L Total Protein (6.4-8.2) g/dl Albumin (3.4-5.0) g/dl Globulin gm/dL Albumin/Globulin Ratio (1-2) 11/01/19 11/02/19 11/02/19 Range/Units 21:13 00:52 05:24 WBC 10.46 H (3.98-10.04) K/mm3 RBC 4.09 (3.98-5.22) M/mm3 Hgb 12.1 (11.2-15.7) gm/dl Hct 41.0 (34.1-44.9) % MCV 100.2 H (79.4-94.8) fl MCH 29.6 (25.6-32.2) pg MCHC 29.5 L (32.2-35.5) g/dl RDW Std Deviation 51.5 H (36.4-46.3) fL Plt Count 144 L (182-369) K/mm3 MPV 13.4 H (9.4-12.3) fl Neut % (Auto) 75.7 H (34.0-71.1) % Lymph % (Auto) 19.1 L (19.3-51.7) % [place] % (Auto) 3.3 L (4.7-12.5) % Eos % (Auto) 1.5 (0.7-5.8) Baso % (Auto) 0.1 (0.1-1.2) % Neut # (Auto) 7.91 H (1.56-6.13) K/mm3 Lymph # (Auto) 2.00 (1.18-3.74) K/mm3 [place] # (Auto) 0.35 (0.24-0.36) K/mm3 Eos # (Auto) 0.16 (0.04-0.36) K/mm3 Baso # (Auto) 0.01 (0.01-0.08) K/mm3 Manual Slide Review Abnormal smear Puncture Site ABG pH (7.35-7.45) ABG pCO2 (35.0-45.0) mmHg ABG pO2 (80.0-100.0) mmHg ABG HCO3 (22.0-26.0) meq/L ABG O2 Saturation (96.0-97.0) % ABG Base Excess (-2-2.0) A-a Gradient mmHg O2 Delivery Device FiO2 (21.00-100.00) % Sodium (136-145) mEq/L Potassium (3.5-5.1) mEq/L Chloride (98-107) mEq/L Carbon Dioxide (21-32) mEq/L Anion Gap (5-15) BUN (7-18) mg/dL Creatinine (0.55-1.02) mg/dL Est Cr Clr Drug Dosing mL/min Estimated GFR (MDRD) (>60) mL/min BUN/Creatinine Ratio (14-18) Glucose (83-115) mg/dL POC Glucose 192 H 152 H (83-110) mg/dL Calcium (8.5-10.1) mg/dL Magnesium (1.8-2.4) mg/dl Total Bilirubin (0.2-1.0) mg/dL AST (15-37) U/L ALT (14-59) U/L Alkaline Phosphatase (46-116) U/L Total Protein (6.4-8.2) g/dl Albumin (3.4-5.0) g/dl Globulin gm/dL Albumin/Globulin Ratio (1-2) 11/02/19 Range/Units 05:24 WBC (3.98-10.04) K/mm3 RBC (3.98-5.22) M/mm3 Hgb (11.2-15.7) gm/dl Hct (34.1-44.9) % MCV (79.4-94.8) fl MCH (25.6-32.2) pg MCHC (32.2-35.5) g/dl RDW Std Deviation (36.4-46.3) fL Plt Count (182-369) K/mm3 MPV (9.4-12.3) fl Neut % (Auto) (34.0-71.1) % Lymph % (Auto) (19.3-51.7) % [place] % (Auto) (4.7-12.5) % Eos % (Auto) (0.7-5.8) Baso % (Auto) (0.1-1.2) % Neut # (Auto) (1.56-6.13) K/mm3 Lymph # (Auto) (1.18-3.74) K/mm3 [place] # (Auto) (0.24-0.36) K/mm3 Eos # (Auto) (0.04-0.36) K/mm3 Baso # (Auto) (0.01-0.08) K/mm3 Manual Slide Review Puncture Site ABG pH (7.35-7.45) ABG pCO2 (35.0-45.0) mmHg ABG pO2 (80.0-100.0) mmHg ABG HCO3 (22.0-26.0) meq/L ABG O2 Saturation (96.0-97.0) % ABG Base Excess (-2-2.0) A-a Gradient mmHg O2 Delivery Device FiO2 (21.00-100.00) % Sodium 150 H (136-145) mEq/L Potassium 3.8 (3.5-5.1) mEq/L Chloride 114 H (98-107) mEq/L Carbon Dioxide 27 (21-32) mEq/L Anion Gap 12.8 (5-15) BUN 25 H (7-18) mg/dL Creatinine 0.9 (0.55-1.02) mg/dL Est Cr Clr Drug Dosing 39.87 mL/min Estimated GFR (MDRD) 60 (>60) mL/min BUN/Creatinine Ratio 27.8 H (14-18) Glucose 190 H (83-115) mg/dL POC Glucose (83-110) mg/dL Calcium 7.8 L (8.5-10.1) mg/dL Magnesium 1.9 (1.8-2.4) mg/dl Total Bilirubin 0.2 (0.2-1.0) mg/dL AST 37 (15-37) U/L ALT 25 (14-59) U/L Alkaline Phosphatase 73 (46-116) U/L Total Protein 5.6 L (6.4-8.2) g/dl Albumin 2.3 L (3.4-5.0) g/dl Globulin 3.3 gm/dL Albumin/Globulin Ratio 0.7 L (1-2) Andrea Results Last 24 Hours: Microbiology 10/31/19 09:55 Aerobic Blood Culture - Preliminary Blood - Venous - Lab Draw NO GROWTH AFTER 2 DAYS Anaerobic Blood Culture - Preliminary NO GROWTH AFTER 2 DAYS 10/31/19 09:35 Aerobic Blood Culture - Preliminary Blood - Venous NO GROWTH AFTER 2 DAYS Anaerobic Blood Culture - Preliminary NO GROWTH AFTER 2 DAYS Med Orders - Current: Current Medications Dextrose/Water (Dextrose 50% In Water) 50 ml IVPUSH ASDIRECTED PRN PRN Reason: Hypoglycemia Ceftriaxone Sodium 2 gm/ (Sodium Chloride) 100 mls @ 200 mls/hr IV Q24H [facility] Last Admin: 11/02/19 09:13 Dose: 200 mls/hr Insulin Glargine (Lantus) 10 unit SUBCUT Q24H [facility] Last Admin: 11/01/19 17:39 Dose: 10 unit Insulin Human Lispro (Humalog) 0 unit SUBCUT QIDACANDBED [facility]; Protocol Last Admin: 11/02/19 06:42 Dose: 1 unit Insulin Human Lispro (Humalog) 3 unit SUBCUT TIDAC [facility] Last Admin: 11/02/19 06:39 Dose: 3 unit Ondansetron HCl (Zofran) 4 mg IV Q4H PRN PRN Reason: Nausea/Vomiting Sodium Chloride (Saline Flush) 10 ml FLUSH ASDIRECTED PRN PRN Reason: Keep Vein Open Last Admin: 10/31/19 09:31 Dose: 10 ml Discontinued Medications Furosemide (Lasix) 40 mg IVPUSH NOW ONE Stop: 11/02/19 08:03 Last Admin: 11/02/19 08:15 Dose: 40 mg Sodium Chloride (Normal Saline) 1,000 mls @ 999 mls/hr IV BOLUS ONE Stop: 10/31/19 10:17 Last Admin: 10/31/19 09:31 Dose: 999 mls/hr Ceftriaxone Sodium 2 gm/ (Sodium Chloride) 100 mls @ 200 mls/hr IV ONETIME ONE Stop: 10/31/19 10:56 Last Admin: 10/31/19 10:47 Dose: 200 mls/hr Lactated Ringer's (Ringers, Lactated) 1,000 mls @ 999 mls/hr IV ASDIRECTED [facility] Last Admin: 10/31/19 10:47 Dose: 999 mls/hr Lactated Ringer's (Ringers, Lactated) 1,000 mls @ 150 mls/hr IV ASDIRECTED [facility] Last Admin: 10/31/19 11:39 Dose: 150 mls/hr Sodium Chloride (Sodium Chloride 0.45%) 1,000 mls @ 250 mls/hr IV ASDIRECTED [facility] Last Infusion: 10/31/19 16:42 Dose: 350 mls/hr Insulin Human Regular 100 unit (/ Sodium Chloride) 100 mls @ 6.19 mls/hr IV TITRATE [facility]; Protocol Last Titration: 11/01/19 09:38 Dose: 0.01 units/kg/hr, 1 mls/hr Potassium Chloride 10 meq/ (Premix) 100 mls @ 100 mls/hr IV Q1H [facility] Stop: 10/31/19 17:59 Last Admin: 10/31/19 17:45 Dose: 100 mls/hr Sodium Chloride (Sodium Chloride 0.45%) 1,000 mls @ 350 mls/hr IV ASDIRECTED [facility] Potassium Chloride/Sodium Chloride (1/2 Ns With 20 Meq Kcl) 1,000 mls @ 250 mls /hr IV ASDIRECTED [facility] Potassium Chloride 10 meq/ (Premix) 100 mls @ 100 mls/hr IV Q1H [facility] Stop: 10/31/19 21:59 Last Admin: 11/01/19 01:20 Dose: Not Given Potassium Chloride/Sodium Chloride (1/2 Ns With 20 Meq Kcl) 1,000 mls @ 250 mls /hr IV ASDIRECTED [facility] Sodium Chloride (Sodium Chloride 0.45%) 1,000 mls @ 150 mls/hr IV ASDIRECTED [facility] Last Infusion: 10/31/19 22:00 Dose: 150 mls/hr Potassium Chloride 10 meq/ (Premix) 100 mls @ 100 mls/hr IV Q1H [facility] Stop: 10/31/19 20:44 Last Admin: 10/31/19 20:07 Dose: 100 mls/hr Dextrose/Sodium Chloride (Dextrose 5%-1/2 Ns) 1,000 mls @ 150 mls/hr IV ASDIRECTED [facility] Last Admin: 11/01/19 05:49 Dose: 150 mls/hr Potassium Chloride 10 meq/ (Premix) 100 mls @ 25 mls/hr IV Q1H [facility] Stop: 11/01/19 05:29 Last Admin: 11/01/19 13:32 Dose: Not Given Potassium Chloride/Dextrose/Sod Cl (D5 1/2 Ns W/ 20 Meq/L Kcl) 1,000 mls @ 150 mls/hr IV ASDIRECTED [facility] Last Admin: 11/01/19 10:16 Dose: 150 mls/hr Sodium Chloride (Sodium Chloride 0.45%) 1,000 mls @ 100 mls/hr IV ASDIRECTED [facility] Sodium Chloride (Sodium Chloride 0.45%) 1,000 mls @ 75 mls/hr IV ASDIRECTED [facility] Last Admin: 11/01/19 21:11 Dose: 75 mls/hr Insulin Human Lispro (Humalog) 3 unit SUBCUT ONETIME ONE Stop: 11/01/19 13:30 Last Admin: 11/01/19 14:51 Dose: 3 units Insulin Human Regular (Humulin R) 6 unit IV ONETIME ONE Stop: 10/31/19 15:25 Last Admin: 10/31/19 16:15 Dose: 6 unit - Exam General: Alert HEENT: Pupils Equal, EOMI, Mucous Membr. Moist/[place] Neck: Supple Lungs: Normal Respiratory Effort (bibasilar), [place] Cardiovascular: Regular Rate, Regular Rhythm GI/Abdominal Exam: Normal Bowel Sounds, Soft, Non-Tender, No Distention Extremities: Normal Inspection, Normal Range of Motion, Non-Tender, No Pedal Edema Skin: Warm, Dry, Intact Psy/Mental Status: Alert - Problem List Review Problem List Initiated/Reviewed/Updated: Yes - My Orders Last 24 Hours: My Active Orders 11/01/19 10:00 [email or web address] [Rocephin] 2 gm Sodium Chloride 0.9% [Normal Saline] 100 ml IV Q24H 11/01/19 13:26 Enema [RC] ASDIRECTED 11/01/19 16:35 Dextrose 50% in Water 50 ml IVPUSH ASDIRECTED PRN 11/01/19 17:00 Insulin Glarg,Human.Rec.Analog [LantUS] 10 unit SUBCUT Q24H Insulin Lispro [HumaLOG] See Protocol SUBCUT QIDACANDBED 11/01/19 Dinner ADA Diabetic [[place] [employer] Diet] [DIET] 11/02/19 07:00 Insulin Lispro [HumaLOG] 3 unit SUBCUT TIDAC 11/03/19 05:11 CBC WITH AUTO DIFF [HEME] AM CMP [COMPREHENSIVE METABOLIC PN,CMP] [CHEM] AM MAGNESIUM [CHEM] AM 11/04/19 05:11 CBC WITH AUTO DIFF [HEME] AM CMP [COMPREHENSIVE METABOLIC PN,CMP] [CHEM] AM MAGNESIUM [CHEM] AM - Plan Plan:: Assessment * Hyperosmolar hyperglycemic state: No history of diabetes: Resolved * Initial blood sugar 923, pH 7.32, bicarb 30, ketones 1.6 * Glucose now jose eduardo. 140-250 on Lantus 10 units daily and Humalog 3 units with each meal with sliding scale * Increase Lantus to 15 units daily and extra 5 given today. * Fluid bolus with LR 2 L in the emergency room * Hypernatremia * Sodium 150 * Improving with improving diet * Severe dementia * More responsive today and says simple sentences * Responds to simple commands * Chronic respiratory acidosis with hypoxemic/hypercapnic respiratory failure * History of COPD * Continue BiPAP prn * Lactic acidosis with anion gap: Resolved * Initial lactic acid 2.4, anion gap 17.0 - repeat lactic acid and AG normal. * Acute renal failure: Improving * Initial BUN 83, creatinine 3.1 * Current BUN 25, creatinine 0.9 * Sepsis protocol initiated in the emergency room * Temperature 100.0 in the emergency room with elevated white count of over 16, 000, lactic acidosis, and anion gap * Afebrile since admission * Blood cultures and Rocephin given in the emergency room * No current source of infection with normal chest x-ray and UA * Patient does have abdominal tenderness, therefore possible abdominal source, but CT scan negative * CT abdomen: Impression: 1. Small bilateral pleural effusions. 2. Focal increased stool within the rectum. 3. Other findings as described above believed to be incidental. * Repeat CXR: nothing acute. 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 Concerned about increasing the prandial insulin to much in case there are meals she does not eat. * Continue low-dose sliding scale * Bedside glucose monitoring QAC/Qhs * Diabetic Diet * CBC, CMP, and magnesium in the morning * Continue to follow respiratory status closely. Patient required large amounts of fluids secondary to her hyperosmolar state which may precipitate pulmonary edema * Restart Cardizem and continue to monitor heart rate and slowly increase other cardiac medications * Monitor electrolytes. * Replenish potassium as needed. * VTE prophylaxis with SCDs we will consider Lovenox in the morning * CODE STATUS: DNR/DNI. I spoke at great length with family, 2 sisters and 2 brothers, about her high risk of mortality. They understand that she has upwards of 80% risk of mortality secondary to her severe multi-system failure. Patient will be placed on BiPAP if necessary, but they do not want central venous access or an arterial line. They also do not want intubation or resuscitation.
[2019-11-02] MEDS: Diltiazem 120 MG Cap.CD PO SCH (12:37)
[2019-11-02] MEDS: Insulin Glarg,Human.Rec.Analog 100 UNIT/ML ML SUBCUT SCH (17:39)
[2019-11-02] MEDS ORDERED: Insulin Glarg,Human.Rec.Analog 100 UNIT/ML ML SUBCUT ONE (18:11)
[2019-11-03] MEDS: Insulin Lispro 100 Units/ML 3 ML Vial SUBCUT SCH ×9 (06:03→22:05)
--- NOTE | 2019-11-03 06:33 | CR ---
Chest: Two views of the chest were obtained. Comparison: Prior chest x-ray of 05/30/17. Heart size and mediastinum are normal. Minimal atelectasis is seen within the lateral left costophrenic angle. Lungs otherwise are clear. Surgical clips are seen overlying the right upper chest. Slight anterior wedging is noted of mid thoracic vertebral bodies which appears old. Mild kyphosis is seen. Mild degenerative change is noted within the spine. Impression: 1. Findings as noted above. 2. Nothing acute is appreciated. Diagnostic code #2 This report was dictated in [place] Standard Time
--- NOTE | 2019-11-03 09:02 | PCM.PN ---
- General Info Date of Service: 11/03/19 Admission Dx/Problem (Free Text): Admission Diagnosis/Problem Admission Diagnosis/Problem Hyperglycemic hyperosmolar nonketotic coma Subjective Update: Georgina is a little more tired today and not eating as well. Urine output has been low between 25 and 30/h. - Patient Data Vitals - Most Recent: Last Vital Signs Temp 98 F 11/03/19 08:00 Pulse 106 H 11/02/19 12:37 Resp 22 H 11/03/19 08:00 BP 126/49 L 11/03/19 08:00 Pulse Ox 94 L 11/03/19 08:00 Weight - Most Recent: 149 lb 3.2 oz I&O - Last 24 Hours: Intake & Output 11/02/19 11/03/19 11/03/19 22:59 06:59 14:59 Intake Total 150 500 Output Total 315 240 Balance -165 260 Lab Results Last 24 Hours: Laboratory Results - last 24 hr 11/02/19 11/02/19 11/02/19 Range/Units 06:39 11:45 17:30 WBC (3.98-10.04) K/mm3 RBC (3.98-5.22) M/mm3 Hgb (11.2-15.7) gm/dl Hct (34.1-44.9) % MCV (79.4-94.8) fl MCH (25.6-32.2) pg MCHC (32.2-35.5) g/dl RDW Std Deviation (36.4-46.3) fL Plt Count (182-369) K/mm3 Neut % (Auto) (34.0-71.1) % Lymph % (Auto) (19.3-51.7) % Atkinson % (Auto) (4.7-12.5) % Eos % (Auto) (0.7-5.8) Baso % (Auto) (0.1-1.2) % Neut # (Auto) (1.56-6.13) K/mm3 Lymph # (Auto) (1.18-3.74) K/mm3 Atkinson # (Auto) (0.24-0.36) K/mm3 Eos # (Auto) (0.04-0.36) K/mm3 Baso # (Auto) (0.01-0.08) K/mm3 Manual Slide Review Sodium (136-145) mEq/L Potassium (3.5-5.1) mEq/L Chloride (98-107) mEq/L Carbon Dioxide (21-32) mEq/L Anion Gap (5-15) BUN (7-18) mg/dL Creatinine (0.55-1.02) mg/dL Est Cr Clr Drug Dosing mL/min Estimated GFR (MDRD) (>60) mL/min BUN/Creatinine Ratio (14-18) Glucose (83-115) mg/dL POC Glucose 185 H 276 H 147 H (83-110) mg/dL Calcium (8.5-10.1) mg/dL Magnesium (1.8-2.4) mg/dl Total Bilirubin (0.2-1.0) mg/dL AST (15-37) U/L ALT (14-59) U/L Alkaline Phosphatase (46-116) U/L Total Protein (6.4-8.2) g/dl Albumin (3.4-5.0) g/dl Globulin gm/dL Albumin/Globulin Ratio (1-2) 11/02/19 11/03/19 11/03/19 Range/Units 20:36 05:25 05:25 WBC 9.49 (3.98-10.04) K/mm3 RBC 4.10 (3.98-5.22) M/mm3 Hgb 12.1 (11.2-15.7) gm/dl Hct 40.2 (34.1-44.9) % MCV 98.0 H (79.4-94.8) fl MCH 29.5 (25.6-32.2) pg MCHC 30.1 L (32.2-35.5) g/dl RDW Std Deviation 49.2 H (36.4-46.3) fL Plt Count 127 L (182-369) K/mm3 Neut % (Auto) 73.6 H (34.0-71.1) % Lymph % (Auto) 20.2 (19.3-51.7) % Atkinson % (Auto) 3.9 L (4.7-12.5) % Eos % (Auto) 2.0 (0.7-5.8) Baso % (Auto) 0.1 (0.1-1.2) % Neut # (Auto) 6.98 H (1.56-6.13) K/mm3 Lymph # (Auto) 1.92 (1.18-3.74) K/mm3 Atkinson # (Auto) 0.37 H (0.24-0.36) K/mm3 Eos # (Auto) 0.19 (0.04-0.36) K/mm3 Baso # (Auto) 0.01 (0.01-0.08) K/mm3 Manual Slide Review Abnormal smear Sodium 147 H (136-145) mEq/L Potassium 3.5 (3.5-5.1) mEq/L Chloride 109 H (98-107) mEq/L Carbon Dioxide 29 (21-32) mEq/L Anion Gap 12.5 (5-15) BUN 15 (7-18) mg/dL Creatinine 0.8 (0.55-1.02) mg/dL Est Cr Clr Drug Dosing 44.85 mL/min Estimated GFR (MDRD) > 60 (>60) mL/min BUN/Creatinine Ratio 18.8 H (14-18) Glucose 172 H (83-115) mg/dL POC Glucose 198 H (83-110) mg/dL Calcium 8.5 (8.5-10.1) mg/dL Magnesium 1.9 (1.8-2.4) mg/dl Total Bilirubin 0.3 (0.2-1.0) mg/dL AST 25 (15-37) U/L ALT 22 (14-59) U/L Alkaline Phosphatase 74 (46-116) U/L Total Protein 5.8 L (6.4-8.2) g/dl Albumin 2.3 L (3.4-5.0) g/dl Globulin 3.5 gm/dL Albumin/Globulin Ratio 0.7 L (1-2) 11/03/19 Range/Units 06:04 WBC (3.98-10.04) K/mm3 RBC (3.98-5.22) M/mm3 Hgb (11.2-15.7) gm/dl Hct (34.1-44.9) % MCV (79.4-94.8) fl MCH (25.6-32.2) pg MCHC (32.2-35.5) g/dl RDW Std Deviation (36.4-46.3) fL Plt Count (182-369) K/mm3 Neut % (Auto) (34.0-71.1) % Lymph % (Auto) (19.3-51.7) % Atkinson % (Auto) (4.7-12.5) % Eos % (Auto) (0.7-5.8) Baso % (Auto) (0.1-1.2) % Neut # (Auto) (1.56-6.13) K/mm3 Lymph # (Auto) (1.18-3.74) K/mm3 Atkinson # (Auto) (0.24-0.36) K/mm3 Eos # (Auto) (0.04-0.36) K/mm3 Baso # (Auto) (0.01-0.08) K/mm3 Manual Slide Review Sodium (136-145) mEq/L Potassium (3.5-5.1) mEq/L Chloride (98-107) mEq/L Carbon Dioxide (21-32) mEq/L Anion Gap (5-15) BUN (7-18) mg/dL Creatinine (0.55-1.02) mg/dL Est Cr Clr Drug Dosing mL/min Estimated GFR (MDRD) (>60) mL/min BUN/Creatinine Ratio (14-18) Glucose (83-115) mg/dL POC Glucose 177 H (83-110) mg/dL Calcium (8.5-10.1) mg/dL Magnesium (1.8-2.4) mg/dl Total Bilirubin (0.2-1.0) mg/dL AST (15-37) U/L ALT (14-59) U/L Alkaline Phosphatase (46-116) U/L Total Protein (6.4-8.2) g/dl Albumin (3.4-5.0) g/dl Globulin gm/dL Albumin/Globulin Ratio (1-2) Andrea Results Last 24 Hours: Microbiology 10/31/19 09:55 Aerobic Blood Culture - Preliminary Blood - Venous - Lab Draw NO GROWTH AFTER 2 DAYS Anaerobic Blood Culture - Preliminary NO GROWTH AFTER 2 DAYS 10/31/19 09:35 Aerobic Blood Culture - Preliminary Blood - Venous NO GROWTH AFTER 2 DAYS Anaerobic Blood Culture - Preliminary NO GROWTH AFTER 2 DAYS Med Orders - Current: Current Medications Dextrose/Water (Dextrose 50% In Water) 50 ml IVPUSH ASDIRECTED PRN PRN Reason: Hypoglycemia Diltiazem HCl (Cardizem Cd) 240 mg PO DAILY [facility] Last Admin: 11/02/19 12:37 Dose: 240 mg Ceftriaxone Sodium 2 gm/ (Sodium Chloride) 100 mls @ 200 mls/hr IV Q24H [facility] Last Admin: 11/02/19 09:13 Dose: 200 mls/hr Insulin Glargine (Lantus) 15 unit SUBCUT DAILY [facility] Insulin Human Lispro (Humalog) 0 unit SUBCUT QIDACANDBED [facility]; Protocol Last Admin: 11/03/19 06:05 Dose: 1 unit Insulin Human Lispro (Humalog) 3 unit SUBCUT TIDAC [facility] Last Admin: 11/03/19 06:03 Dose: 3 unit Ondansetron HCl (Zofran) 4 mg IV Q4H PRN PRN Reason: Nausea/Vomiting Sodium Chloride (Saline Flush) 10 ml FLUSH ASDIRECTED PRN PRN Reason: Keep Vein Open Last Admin: 10/31/19 09:31 Dose: 10 ml Discontinued Medications Furosemide (Lasix) 40 mg IVPUSH NOW ONE Stop: 11/02/19 08:03 Last Admin: 11/02/19 08:15 Dose: 40 mg Sodium Chloride (Normal Saline) 1,000 mls @ 999 mls/hr IV BOLUS ONE Stop: 10/31/19 10:17 Last Admin: 10/31/19 09:31 Dose: 999 mls/hr Ceftriaxone Sodium 2 gm/ (Sodium Chloride) 100 mls @ 200 mls/hr IV ONETIME ONE Stop: 10/31/19 10:56 Last Admin: 10/31/19 10:47 Dose: 200 mls/hr Lactated Ringer's (Ringers, Lactated) 1,000 mls @ 999 mls/hr IV ASDIRECTED [facility] Last Admin: 10/31/19 10:47 Dose: 999 mls/hr Lactated Ringer's (Ringers, Lactated) 1,000 mls @ 150 mls/hr IV ASDIRECTED [facility] Last Admin: 10/31/19 11:39 Dose: 150 mls/hr Sodium Chloride (Sodium Chloride 0.45%) 1,000 mls @ 250 mls/hr IV ASDIRECTED [facility] Last Infusion: 10/31/19 16:42 Dose: 350 mls/hr Insulin Human Regular 100 unit (/ Sodium Chloride) 100 mls @ 6.19 mls/hr IV TITRATE [facility]; Protocol Last Titration: 11/01/19 09:38 Dose: 0.01 units/kg/hr, 1 mls/hr Potassium Chloride 10 meq/ (Premix) 100 mls @ 100 mls/hr IV Q1H [facility] Stop: 10/31/19 17:59 Last Admin: 10/31/19 17:45 Dose: 100 mls/hr Sodium Chloride (Sodium Chloride 0.45%) 1,000 mls @ 350 mls/hr IV ASDIRECTED [facility] Potassium Chloride/Sodium Chloride (1/2 Ns With 20 Meq Kcl) 1,000 mls @ 250 mls /hr IV ASDIRECTED [facility] Potassium Chloride 10 meq/ (Premix) 100 mls @ 100 mls/hr IV Q1H [facility] Stop: 10/31/19 21:59 Last Admin: 11/01/19 01:20 Dose: Not Given Potassium Chloride/Sodium Chloride (1/2 Ns With 20 Meq Kcl) 1,000 mls @ 250 mls /hr IV ASDIRECTED [facility] Sodium Chloride (Sodium Chloride 0.45%) 1,000 mls @ 150 mls/hr IV ASDIRECTED [facility] Last Infusion: 10/31/19 22:00 Dose: 150 mls/hr Potassium Chloride 10 meq/ (Premix) 100 mls @ 100 mls/hr IV Q1H [facility] Stop: 10/31/19 20:44 Last Admin: 10/31/19 20:07 Dose: 100 mls/hr Dextrose/Sodium Chloride (Dextrose 5%-1/2 Ns) 1,000 mls @ 150 mls/hr IV ASDIRECTED [facility] Last Admin: 11/01/19 05:49 Dose: 150 mls/hr Potassium Chloride 10 meq/ (Premix) 100 mls @ 25 mls/hr IV Q1H [facility] Stop: 11/01/19 05:29 Last Admin: 11/01/19 13:32 Dose: Not Given Potassium Chloride/Dextrose/Sod Cl (D5 1/2 Ns W/ 20 Meq/L Kcl) 1,000 mls @ 150 mls/hr IV ASDIRECTED [facility] Last Admin: 11/01/19 10:16 Dose: 150 mls/hr Sodium Chloride (Sodium Chloride 0.45%) 1,000 mls @ 100 mls/hr IV ASDIRECTED [facility] Sodium Chloride (Sodium Chloride 0.45%) 1,000 mls @ 75 mls/hr IV ASDIRECTED [facility] Last Admin: 11/01/19 21:11 Dose: 75 mls/hr Insulin Glargine (Lantus) 10 unit SUBCUT Q24H [facility] Last Admin: 11/02/19 17:39 Dose: 10 unit Insulin Glargine (Lantus) 5 unit SUBCUT NOW ONE Stop: 11/02/19 18:12 Last Admin: 11/02/19 18:42 Dose: 5 units Insulin Human Lispro (Humalog) 3 unit SUBCUT ONETIME ONE Stop: 11/01/19 13:30 Last Admin: 11/01/19 14:51 Dose: 3 units Insulin Human Regular (Humulin R) 6 unit IV ONETIME ONE Stop: 10/31/19 15:25 Last Admin: 10/31/19 16:15 Dose: 6 unit - Exam General: Cooperative, Other (Tired) HEENT: Pupils Equal Neck: Supple Lungs: Clear to Auscultation, Normal Respiratory Effort Cardiovascular: Regular Rate, Regular Rhythm GI/Abdominal Exam: Normal Bowel Sounds Extremities: Normal Inspection, No Pedal Edema Skin: Warm, Dry - Problem List Review Problem List Initiated/Reviewed/Updated: Yes - My Orders Last 24 Hours: My Active Orders 11/02/19 12:30 Diltiazem [Cardizem CD] 240 mg PO DAILY 11/03/19 21:00 Insulin Glarg,Human.Rec.Analog [LantUS] 15 unit SUBCUT DAILY 11/04/19 05:11 CBC WITH AUTO DIFF [HEME] AM CMP [COMPREHENSIVE METABOLIC PN,CMP] [CHEM] AM MAGNESIUM [CHEM] AM - Plan Plan:: Assessment * Hyperosmolar hyperglycemic state: No history of diabetes: Resolved * Initial blood sugar 923, pH 7.32, bicarb 30, ketones 1.6 * Glucose now jose eduardo. 140-250 on Lantus 10 units daily and Humalog 3 units with each meal with sliding scale * Increase Lantus to 15 units daily and extra 5 given today. * Fluid bolus with LR 2 L in the emergency room * Hypernatremia * Sodium 150 * Improving with improving diet * Severe dementia * More responsive today and says simple sentences * Responds to simple commands * Chronic respiratory acidosis with hypoxemic/hypercapnic respiratory failure * History of COPD * Continue BiPAP prn * Lactic acidosis with anion gap: Resolved * Initial lactic acid 2.4, anion gap 17.0 - repeat lactic acid and AG normal. * Acute renal failure: Improving * Initial BUN 83, creatinine 3.1 * Current BUN 15 creatinine 0.8 * Urine output has been low today. * Encourage p.o. intake. * Sepsis protocol initiated in the emergency room: Ruled out. * Temperature 100.0 in the emergency room with elevated white count of over 16, 000, lactic acidosis, and anion gap * Afebrile since admission * Blood cultures and Rocephin given in the emergency room * No current source of infection with normal chest x-ray and UA * Patient does have abdominal tenderness, therefore possible abdominal source, but CT scan negative * CT abdomen: Impression: 1. Small bilateral pleural effusions. 2. Focal increased stool within the rectum. 3. Other findings as described above believed to be incidental. * Repeat CXR: nothing acute. 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 Concerned about increasing the prandial insulin to much in case there are meals she does not eat. * Continue low-dose sliding scale * Bedside glucose monitoring QAC/Qhs * Diabetic Diet * CBC, CMP, and magnesium in the morning * Continue to follow respiratory status closely. Patient required large amounts of fluids secondary to her hyperosmolar state which may precipitate pulmonary edema * Restart Cardizem and continue to monitor heart rate and slowly increase other cardiac medications * Monitor electrolytes. * Replenish potassium as needed. * VTE prophylaxis with SCDs we will consider Lovenox in the morning * CODE STATUS: DNR/DNI. I spoke at great length with family, 2 sisters and 2 brothers, about her high risk of mortality. They understand that she has upwards of 80% risk of mortality secondary to her severe multi-system failure. Patient will be placed on BiPAP if necessary, but they do not want central venous access or an arterial line. They also do not want intubation or resuscitation. * Length of stay anticipated to be longer than 96 hours secondary to severity of disease, decreasing urine output.
[2019-11-03] MEDS: cefTRIAXone 2 GM in Sodium Chloride 0.9% 100 ML IV SCH (09:12)
[2019-11-03] MEDS: Diltiazem 120 MG Cap.CD PO SCH (09:12)
[2019-11-03] MEDS: Insulin Glarg,Human.Rec.Analog 100 UNIT/ML ML SUBCUT SCH (21:09)
[2019-11-03] MEDS ORDERED: Sodium Chloride 0.45% 1,000 ML IV SCH (21:15)
[2019-11-04] MEDS: Insulin Lispro 100 Units/ML 3 ML Vial SUBCUT SCH ×6 (06:20→21:49)
[2019-11-04] MEDS ORDERED: Furosemide 20 MG/2 ML VIAL IVPUSH ONE ×2 (06:56→08:37)
[2019-11-04] MEDS: Insulin Glarg,Human.Rec.Analog 100 UNIT/ML ML SUBCUT SCH (08:57)
[2019-11-04] MEDS: Diltiazem 240 MG Cap.ER PO SCH (08:58)
--- NOTE | 2019-11-04 09:33 | PCM.PN ---
- General Info Date of Service: 11/04/19 Admission Dx/Problem (Free Text): Admission Diagnosis/Problem Admission Diagnosis/Problem Hyperglycemic hyperosmolar nonketotic coma Subjective Update: Georgina did not do well taking orally yesterday. Urine output also decreased with the poor oral intake. IV fluids were restarted last night in hopes to improve urine output, but overnight urine output stayed around 20 mL/h. - Review of Systems General: Reports: No Symptoms HEENT: Reports: No Symptoms Pulmonary: Reports: No Symptoms Cardiovascular: Reports: No Symptoms Gastrointestinal: Reports: No Symptoms Musculoskeletal: Reports: No Symptoms - Patient Data Vitals - Most Recent: Last Vital Signs Temp 98.7 F 11/04/19 09:00 Pulse 82 11/04/19 03:00 Resp 18 11/04/19 09:00 BP 122/60 11/04/19 09:00 Pulse Ox 95 11/04/19 09:00 Weight - Most Recent: 149 lb I&O - Last 24 Hours: Intake & Output 11/03/19 11/04/19 11/04/19 22:59 06:59 14:59 Intake Total 650 0 Output Total 390 90 20 Balance -390 560 -20 Lab Results Last 24 Hours: Laboratory Results - last 24 hr 11/03/19 11/03/19 11/03/19 Range/Units 11:03 13:23 17:02 WBC (3.98-10.04) K/mm3 RBC (3.98-5.22) M/mm3 Hgb (11.2-15.7) gm/dl Hct (34.1-44.9) % MCV (79.4-94.8) fl MCH (25.6-32.2) pg MCHC (32.2-35.5) g/dl RDW Std Deviation (36.4-46.3) fL Plt Count (182-369) K/mm3 MPV (9.4-12.3) fl Neut % (Auto) (34.0-71.1) % Lymph % (Auto) (19.3-51.7) % [place] % (Auto) (4.7-12.5) % Eos % (Auto) (0.7-5.8) Baso % (Auto) (0.1-1.2) % Neut # (Auto) (1.56-6.13) K/mm3 Lymph # (Auto) (1.18-3.74) K/mm3 [place] # (Auto) (0.24-0.36) K/mm3 Eos # (Auto) (0.04-0.36) K/mm3 Baso # (Auto) (0.01-0.08) K/mm3 Sodium (136-145) mEq/L Potassium (3.5-5.1) mEq/L Chloride (98-107) mEq/L Carbon Dioxide (21-32) mEq/L Anion Gap (5-15) BUN (7-18) mg/dL Creatinine (0.55-1.02) mg/dL Est Cr Clr Drug Dosing mL/min Estimated GFR (MDRD) (>60) mL/min BUN/Creatinine Ratio (14-18) Glucose (83-115) mg/dL POC Glucose 156 H 219 H 96 (83-110) mg/dL Calcium (8.5-10.1) mg/dL Magnesium (1.8-2.4) mg/dl Total Bilirubin (0.2-1.0) mg/dL AST (15-37) U/L ALT (14-59) U/L Alkaline Phosphatase (46-116) U/L Total Protein (6.4-8.2) g/dl Albumin (3.4-5.0) g/dl Globulin gm/dL Albumin/Globulin Ratio (1-2) 11/03/19 11/04/19 11/04/19 Range/Units 20:59 01:30 05:29 WBC 10.11 H (3.98-10.04) K/mm3 RBC 4.05 (3.98-5.22) M/mm3 Hgb 12.0 (11.2-15.7) gm/dl Hct 39.4 (34.1-44.9) % MCV 97.3 H (79.4-94.8) fl MCH 29.6 (25.6-32.2) pg MCHC 30.5 L (32.2-35.5) g/dl RDW Std Deviation 47.5 H (36.4-46.3) fL Plt Count 125 L (182-369) K/mm3 MPV 13.6 H (9.4-12.3) fl Neut % (Auto) 77.9 H (34.0-71.1) % Lymph % (Auto) 14.9 L (19.3-51.7) % [place] % (Auto) 4.7 (4.7-12.5) % Eos % (Auto) 2.2 (0.7-5.8) Baso % (Auto) 0.1 (0.1-1.2) % Neut # (Auto) 7.87 H (1.56-6.13) K/mm3 Lymph # (Auto) 1.51 (1.18-3.74) K/mm3 [place] # (Auto) 0.48 H (0.24-0.36) K/mm3 Eos # (Auto) 0.22 (0.04-0.36) K/mm3 Baso # (Auto) 0.01 (0.01-0.08) K/mm3 Sodium (136-145) mEq/L Potassium (3.5-5.1) mEq/L Chloride (98-107) mEq/L Carbon Dioxide (21-32) mEq/L Anion Gap (5-15) BUN (7-18) mg/dL Creatinine (0.55-1.02) mg/dL Est Cr Clr Drug Dosing mL/min Estimated GFR (MDRD) (>60) mL/min BUN/Creatinine Ratio (14-18) Glucose (83-115) mg/dL POC Glucose 153 H 195 H (83-110) mg/dL Calcium (8.5-10.1) mg/dL Magnesium (1.8-2.4) mg/dl Total Bilirubin (0.2-1.0) mg/dL AST (15-37) U/L ALT (14-59) U/L Alkaline Phosphatase (46-116) U/L Total Protein (6.4-8.2) g/dl Albumin (3.4-5.0) g/dl Globulin gm/dL Albumin/Globulin Ratio (1-2) 11/04/19 11/04/19 Range/Units 05:29 06:17 WBC (3.98-10.04) K/mm3 RBC (3.98-5.22) M/mm3 Hgb (11.2-15.7) gm/dl Hct (34.1-44.9) % MCV (79.4-94.8) fl MCH (25.6-32.2) pg MCHC (32.2-35.5) g/dl RDW Std Deviation (36.4-46.3) fL Plt Count (182-369) K/mm3 MPV (9.4-12.3) fl Neut % (Auto) (34.0-71.1) % Lymph % (Auto) (19.3-51.7) % [place] % (Auto) (4.7-12.5) % Eos % (Auto) (0.7-5.8) Baso % (Auto) (0.1-1.2) % Neut # (Auto) (1.56-6.13) K/mm3 Lymph # (Auto) (1.18-3.74) K/mm3 [place] # (Auto) (0.24-0.36) K/mm3 Eos # (Auto) (0.04-0.36) K/mm3 Baso # (Auto) (0.01-0.08) K/mm3 Sodium 144 (136-145) mEq/L Potassium 3.4 L (3.5-5.1) mEq/L Chloride 107 (98-107) mEq/L Carbon Dioxide 30 (21-32) mEq/L Anion Gap 10.4 (5-15) BUN 9 (7-18) mg/dL Creatinine 0.6 (0.55-1.02) mg/dL Est Cr Clr Drug Dosing 59.80 mL/min Estimated GFR (MDRD) > 60 (>60) mL/min BUN/Creatinine Ratio 15.0 (14-18) Glucose 161 H (83-115) mg/dL POC Glucose 152 H (83-110) mg/dL Calcium 8.5 (8.5-10.1) mg/dL Magnesium 1.9 (1.8-2.4) mg/dl Total Bilirubin 0.2 (0.2-1.0) mg/dL AST 22 (15-37) U/L ALT 21 (14-59) U/L Alkaline Phosphatase 70 (46-116) U/L Total Protein 5.9 L (6.4-8.2) g/dl Albumin 2.2 L (3.4-5.0) g/dl Globulin 3.7 gm/dL Albumin/Globulin Ratio 0.6 L (1-2) Andrea Results Last 24 Hours: Microbiology 10/31/19 09:55 Aerobic Blood Culture - Preliminary Blood - Venous - Lab Draw NO GROWTH AFTER 3 DAYS Anaerobic Blood Culture - Preliminary NO GROWTH AFTER 3 DAYS 10/31/19 09:35 Aerobic Blood Culture - Preliminary Blood - Venous NO GROWTH AFTER 3 DAYS Anaerobic Blood Culture - Preliminary NO GROWTH AFTER 3 DAYS Med Orders - Current: Current Medications Dextrose/Water (Dextrose 50% In Water) 50 ml IVPUSH ASDIRECTED PRN PRN Reason: Hypoglycemia Diltiazem HCl (Dilacor Xr) 240 mg PO DAILY [facility] Last Admin: 11/04/19 08:58 Dose: 240 mg Sodium Chloride (Sodium Chloride 0.45%) 1,000 mls @ 75 mls/hr IV ASDIRECTED [facility] Last Admin: 11/03/19 21:32 Dose: 75 mls/hr Insulin Glargine (Lantus) 15 unit SUBCUT DAILY [facility] Last Admin: 11/04/19 08:57 Dose: 15 unit Insulin Human Lispro (Humalog) 0 unit SUBCUT QIDACANDBED [facility]; Protocol Last Admin: 11/04/19 06:20 Dose: Not Given Insulin Human Lispro (Humalog) 3 unit SUBCUT TIDAC [facility] Last Admin: 11/04/19 06:21 Dose: Not Given Ondansetron HCl (Zofran) 4 mg IV Q4H PRN PRN Reason: Nausea/Vomiting Sodium Chloride (Saline Flush) 10 ml FLUSH ASDIRECTED PRN PRN Reason: Keep Vein Open Last Admin: 10/31/19 09:31 Dose: 10 ml Discontinued Medications Diltiazem HCl (Cardizem Cd) 240 mg PO DAILY [facility] Last Admin: 11/03/19 09:12 Dose: 240 mg Furosemide (Lasix) 40 mg IVPUSH NOW ONE Stop: 11/02/19 08:03 Last Admin: 11/02/19 08:15 Dose: 40 mg Furosemide (Lasix) 20 mg IVPUSH ONETIME ONE Stop: 11/04/19 06:57 Last Admin: 11/04/19 07:36 Dose: 20 mg Furosemide (Lasix) 20 mg IVPUSH ONETIME ONE Stop: 11/04/19 08:38 Last Admin: 11/04/19 08:56 Dose: 20 mg Sodium Chloride (Normal Saline) 1,000 mls @ 999 mls/hr IV BOLUS ONE Stop: 10/31/19 10:17 Last Admin: 10/31/19 09:31 Dose: 999 mls/hr Ceftriaxone Sodium 2 gm/ (Sodium Chloride) 100 mls @ 200 mls/hr IV ONETIME ONE Stop: 10/31/19 10:56 Last Admin: 10/31/19 10:47 Dose: 200 mls/hr Lactated Ringer's (Ringers, Lactated) 1,000 mls @ 999 mls/hr IV ASDIRECTED [facility] Last Admin: 10/31/19 10:47 Dose: 999 mls/hr Lactated Ringer's (Ringers, Lactated) 1,000 mls @ 150 mls/hr IV ASDIRECTED [facility] Last Admin: 10/31/19 11:39 Dose: 150 mls/hr Sodium Chloride (Sodium Chloride 0.45%) 1,000 mls @ 250 mls/hr IV ASDIRECTED [facility] Last Infusion: 10/31/19 16:42 Dose: 350 mls/hr Insulin Human Regular 100 unit (/ Sodium Chloride) 100 mls @ 6.19 mls/hr IV TITRATE [facility]; Protocol Last Titration: 11/01/19 09:38 Dose: 0.01 units/kg/hr, 1 mls/hr Potassium Chloride 10 meq/ (Premix) 100 mls @ 100 mls/hr IV Q1H [facility] Stop: 10/31/19 17:59 Last Admin: 10/31/19 17:45 Dose: 100 mls/hr Sodium Chloride (Sodium Chloride 0.45%) 1,000 mls @ 350 mls/hr IV ASDIRECTED [facility] Potassium Chloride/Sodium Chloride (1/2 Ns With 20 Meq Kcl) 1,000 mls @ 250 mls /hr IV ASDIRECTED [facility] Potassium Chloride 10 meq/ (Premix) 100 mls @ 100 mls/hr IV Q1H [facility] Stop: 10/31/19 21:59 Last Admin: 11/01/19 01:20 Dose: Not Given Potassium Chloride/Sodium Chloride (1/2 Ns With 20 Meq Kcl) 1,000 mls @ 250 mls /hr IV ASDIRECTED [facility] Sodium Chloride (Sodium Chloride 0.45%) 1,000 mls @ 150 mls/hr IV ASDIRECTED [facility] Last Infusion: 10/31/19 22:00 Dose: 150 mls/hr Potassium Chloride 10 meq/ (Premix) 100 mls @ 100 mls/hr IV Q1H [facility] Stop: 10/31/19 20:44 Last Admin: 10/31/19 20:07 Dose: 100 mls/hr Ceftriaxone Sodium 2 gm/ (Sodium Chloride) 100 mls @ 200 mls/hr IV Q24H [facility] Last Admin: 11/03/19 09:12 Dose: 200 mls/hr Dextrose/Sodium Chloride (Dextrose 5%-1/2 Ns) 1,000 mls @ 150 mls/hr IV ASDIRECTED [facility] Last Admin: 11/01/19 05:49 Dose: 150 mls/hr Potassium Chloride 10 meq/ (Premix) 100 mls @ 25 mls/hr IV Q1H [facility] Stop: 11/01/19 05:29 Last Admin: 11/01/19 13:32 Dose: Not Given Potassium Chloride/Dextrose/Sod Cl (D5 1/2 Ns W/ 20 Meq/L Kcl) 1,000 mls @ 150 mls/hr IV ASDIRECTED [facility] Last Admin: 11/01/19 10:16 Dose: 150 mls/hr Sodium Chloride (Sodium Chloride 0.45%) 1,000 mls @ 100 mls/hr IV ASDIRECTED [facility] Sodium Chloride (Sodium Chloride 0.45%) 1,000 mls @ 75 mls/hr IV ASDIRECTED [facility] Last Admin: 11/01/19 21:11 Dose: 75 mls/hr Insulin Glargine (Lantus) 10 unit SUBCUT Q24H [facility] Last Admin: 11/02/19 17:39 Dose: 10 unit Insulin Glargine (Lantus) 5 unit SUBCUT NOW ONE Stop: 11/02/19 18:12 Last Admin: 11/02/19 18:42 Dose: 5 units Insulin Human Lispro (Humalog) 3 unit SUBCUT ONETIME ONE Stop: 11/01/19 13:30 Last Admin: 11/01/19 14:51 Dose: 3 units Insulin Human Regular (Humulin R) 6 unit IV ONETIME ONE Stop: 10/31/19 15:25 Last Admin: 10/31/19 16:15 Dose: 6 unit - Exam Quality Assessment: Supplemental Oxygen General: Alert HEENT: Pupils Equal, EOMI, Mucous Membr. Moist/[place] Neck: Supple Lungs: Normal Respiratory Effort, Rales (Mild bibasilar rales and wheezing) Cardiovascular: Regular Rate, Regular Rhythm GI/Abdominal Exam: Normal Bowel Sounds, Soft, Non-Tender, No Distention Extremities: Pedal Edema (1+ pitting edema bilaterally) Skin: Warm, Dry, Intact Psy/Mental Status: Alert, Normal Affect, Normal Mood Sepsis Event Note - Evaluation Sepsis Screening Result: No Definite Risk - Focused Exam Vital Signs: Vital Signs Temp Pulse Resp BP Pulse Ox 11/04/19 09:00 98.7 F 18 122/60 95 11/04/19 03:00 82 19 121/46 L 95 Date Exam was Performed: 11/04/19 Time Exam was Performed: 09:29 - Problem List Review Problem List Initiated/Reviewed/Updated: Yes - My Orders Last 24 Hours: My Active Orders 11/03/19 09:56 Patient Status [ADT] Routine 11/03/19 13:00 OT Evaluation and Treatment [CONS] Routine PT Evaluation and Treatment [CONS] Routine 11/03/19 21:00 Insulin Glarg,Human.Rec.Analog [LantUS] 15 unit SUBCUT DAILY 11/03/19 21:15 Sodium Chloride 0.45% 1,000 ml IV ASDIRECTED 11/04/19 09:00 Diltiazem [Dilacor XR] 240 mg PO DAILY - Plan Plan:: Assessment * Hyperosmolar hyperglycemic state: No history of diabetes: Resolved * Initial blood sugar 923, pH 7.32, bicarb 30, ketones 1.6 * Glucose now jose eduardo. 140-250 on Lantus 10 units daily and Humalog 3 units with each meal with sliding scale * Increase Lantus to 15 units daily and extra 5 given today. * Fluid bolus with LR 2 L in the emergency room * Hypernatremia * Sodium 150 * Improving with improving diet * Severe dementia * More responsive today and says simple sentences * Responds to simple commands * Chronic respiratory acidosis with hypoxemic/hypercapnic respiratory failure * History of COPD * Continue BiPAP prn * Lactic acidosis with anion gap: Resolved * Initial lactic acid 2.4, anion gap 17.0 - repeat lactic acid and AG normal. * Acute renal failure: Improving * Initial BUN 83, creatinine 3.1 * Current BUN 15 creatinine 0.8 * Urine output has been low yesterday. * Encourage p.o. intake. * Sepsis protocol initiated in the emergency room: Ruled out. * Temperature 100.0 in the emergency room with elevated white count of over 16, 000, lactic acidosis, and anion gap * Afebrile since admission * Blood cultures and Rocephin given in the emergency room * No current source of infection with normal chest x-ray and UA * Patient does have abdominal tenderness, therefore possible abdominal source, but CT scan negative * CT abdomen: Impression: 1. Small bilateral pleural effusions. 2. Focal increased stool within the rectum. 3. Other findings as described above believed to be incidental. * Repeat CXR: nothing acute. 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 Concerned about increasing the prandial insulin to much in case there are meals she does not eat. * Continue low-dose sliding scale * Bedside glucose monitoring QAC/Qhs. Hold prandial insulin if not taking orally. * Lasix 20 mg IV. Repeat if not adequate urine output. * Diabetic Diet * CBC, CMP, and magnesium in the morning * Continue to follow respiratory status closely. Patient required large amounts of fluids secondary to her hyperosmolar state which may precipitate pulmonary edema * Restart Cardizem and continue to monitor heart rate and slowly increase other cardiac medications * Monitor electrolytes. * Replenish potassium as needed. * VTE prophylaxis with SCDs we will consider Lovenox in the morning * CODE STATUS: DNR/DNI. I spoke at great length with family, 2 sisters and 2 brothers, about her high risk of mortality. They understand that she has upwards of 80% risk of mortality secondary to her severe multi-system failure. Patient will be placed on BiPAP if necessary, but they do not want central venous access or an arterial line. They also do not want intubation or resuscitation. * Length of stay anticipated to be longer than 96 hours secondary to severity of disease, decreasing urine output.
[2019-11-04] MEDS ORDERED: Potassium Chloride 10 MEQ in Premix Bag 1 BAG IV SCH (10:00)
[2019-11-04] MEDS ORDERED: Potassium Chloride 20 MEQ Tab.ER PO ONE (12:00)
[2019-11-04] MEDS ORDERED: Insulin Lispro 100 Units/ML 3 ML Vial SUBCUT SCH (13:00)
[2019-11-04] MEDS ORDERED: Acetaminophen 325 MG Tab PO PRN (19:32)
[2019-11-04] MEDS ORDERED: Insulin Glarg,Human.Rec.Analog 100 UNIT/ML ML SUBCUT SCH (21:00)
[2019-11-05] MEDS: Insulin Lispro 100 Units/ML 3 ML Vial SUBCUT SCH ×4 (07:01→12:21)
--- NOTE | 2019-11-05 07:52 | PCM.DCSUM1 ---
Discharge Summary - Hospital Course HPI Initial Comments: 84-year-old female with severe dementia brought in by [facility] from the [facility] secondary to fever, dyspnea, altered mental status, and poor oral intake. Patient is nonverbal, therefore history was obtained from family and emergency room physician notes. Family states that 2 days ago she seemed to be fine in the evening and had a normal dinner. She was found at 8:00 this morning with the above signs and her primary care provider was contacted who recommended that she be sent to the hospital. Patient is able to follow simple commands but not able to answer questions. She has a history of dementia, COPD , hypertension, right above-knee amputation secondary to peripheral vascular disease. In the emergency room patient was found to have a temperature of 100.0 Fahrenheit, elevated white count of 16,690 with 84% segs and no bands, and anion gap of 17, lactic acid of 2.4 so a sepsis alert was ordered. Patient was given IV fluids, Rocephin, a chest x-ray was performed and an urine analysis. Chest x-ray and UA were negative. Patient was also found to have a glucose of 923, sodium of 152, bicarb of 33, ketones of 1.6. ABG: pH 3.72, PCO2 of 60.9, PO2 of 83.0, HCO3 of 30.3, O2 saturation 95.6. Consistent with hyperosmolar hyperglycemia with chronic respiratory acidosis. Diagnosis: Stroke: No - Discharge Data Discharge Date: 11/05/19 Discharge Disposition: DC/Tfer to [facility] Condition: Good - Referral to Home Health Primary Care Physician: Eduar Cheney MD - Patient Summary/Data Consults: Consultations 11/03/19 13:00 OT Evaluation and Treatment [CONS] Routine PT Evaluation and Treatment [CONS] Routine Hospital Course: Patient was admitted to the ICU and aggressive IV rehydration and insulin drip was started. When blood sugars decreased down to 300 she was switched to D5 half-normal saline. Patient's initial corrected sodium was as high as 173. Over the next couple of days of IV hydration and insulin therapy patient's sodium returned to normal. Patient also had significant renal injury with initial creatinine of 3.1. At discharge her creatinine is 0.6. Patient was placed on Lantus initially at 10 units, increased to 15, and then decreased back down to 12 daily. She is on 2 units of fast acting insulin with each meal and a sliding scale coverage. Blood sugars have ranged in the 70s up to the 200s and need to be continued monitoring based on how much she eats. Patient would benefit from getting her insulin after meals to be able to determine the appropriate amount of insulin with each meal. No source of infection was ever determined and IV antibiotics were stopped. - Patient Instructions Diet: Diabetic Diet Driving: Do Not Drive Other/Special Instructions: HbA1c, microalbumin, and lipids are pending. Follow up with PCP this week. Check vitals daily. Check bedside blood glucose before meals and bedtime. Cover with sliding scale insulin as needed. - Discharge Plan *PRESCRIPTION DRUG MONITORING PROGRAM REVIEWED*: No *COPY OF PRESCRIPTION DRUG MONITORING REPORT IN PATIENT DEEPALI: No Prescriptions/Med Rec: Furosemide [Lasix] 20 mg PO DAILY #30 tab Insulin Glarg,Human.Rec.Analog [Lantus] 12 unit SUBCUT BEDTIME #1 vial Insulin Lispro [HumaLOG] 2 unit SUBCUT TIDPC #1 vial Home Medications: Home Meds Lisinopril 10 mg PO DAILY 05/26/16 [History] Aspirin 81 mg PO DAILY #30 tab.chew 05/27/16 [Rx] Acetaminophen [Tylenol Extra Strength] 650 mg PO Q6H PRN 05/22/17 [History] Bisacodyl [Laxative Suppository] 10 mg RECTAL DAILY PRN 10/31/19 [History] Diltiazem [Cardizem CD] 240 mg PO DAILY 10/31/19 [History] Pravastatin [Pravachol] 20 mg PO DAILY 10/31/19 [History] Sertraline [Zoloft] 50 mg PO BEDTIME 10/31/19 [History] Furosemide [Lasix] 20 mg PO DAILY #30 tab 11/05/19 [Rx] Insulin Glarg,Human.Rec.Analog [Lantus] 12 unit SUBCUT BEDTIME #1 vial 11/05/19 [Rx] Insulin Lispro [HumaLOG] 0 unit SUBCUT QIDACANDBED #0 vial 11/05/19 [Rx] Insulin Lispro [HumaLOG] 2 unit SUBCUT TIDPC #1 vial 11/05/19 [Rx] Oxygen Therapy Mode: Nasal Cannula Oxygen Flow Rate (L/min): 3 Patient Handouts: Hyperglycemic Hyperosmolar State, Type 2 Diabetes Mellitus, Self Care, Adult, Blood Glucose Monitoring, Adult Referrals: Eduar Cheney MD [Primary Care Provider] - 11/11/19 7:30 am (Please follow up with Dr. Cheney on November 11 at 7:30 AM.) - Discharge Summary/Plan Comment DC Time >30 min.: Yes Discharge Summary/Plan Comment: Discharge back to long-term care. Lantus 12 units daily with 2 units short acting insulin with each meal. Also covered with sliding scale insulin. Hemoglobin A1c, urine microalbumin to creatinine ratio, and lipids were pending at time of discharge. Follow-up with primary care provider. It is very important for staff to monitor her closely and make sure she is taking appropriate oral intake. - General Info Date of Service: 11/05/19 Admission Dx/Problem (Free Text: Admission Diagnosis/Problem Admission Diagnosis/Problem Hyperglycemic hyperosmolar nonketotic coma Subjective Update: Patient is doing well without any complaints. Her blood sugars did go up yesterday to 300, but this was associated with missing morning dose of insulin secondary to poor oral intake. Functional Status: Reports: Pain Controlled - Review of Systems General: Reports: No Symptoms HEENT: Reports: No Symptoms Pulmonary: Reports: No Symptoms Cardiovascular: Reports: No Symptoms Gastrointestinal: Reports: No Symptoms - Patient Data Vitals - Most Recent: Last Vital Signs Temp 97.9 F 11/05/19 03:30 Pulse 76 11/04/19 23:12 Resp 18 11/05/19 03:30 BP 124/77 11/05/19 03:30 Pulse Ox 94 L 11/05/19 03:30 Weight - Most Recent: 141 lb 1.6 oz I&O - Last 24 hours: Intake & Output 11/04/19 11/05/19 11/05/19 22:59 06:59 14:59 Intake Total 1000 350 Balance 1000 350 Lab Results - Last 24 hrs: Laboratory Results - last 24 hr 11/04/19 11/04/19 11/04/19 Range/Units 11:56 17:22 18:12 POC Glucose 302 H 78 L 142 H (83-110) mg/dL 11/04/19 11/05/19 Range/Units 20:12 06:43 POC Glucose 235 H 126 H (83-110) mg/dL ERINN Results - Last 24 hrs: Microbiology 10/31/19 09:55 Aerobic Blood Culture - Preliminary Blood - Venous - Lab Draw NO GROWTH AFTER 4 DAYS Anaerobic Blood Culture - Preliminary NO GROWTH AFTER 4 DAYS 10/31/19 09:35 Aerobic Blood Culture - Preliminary Blood - Venous NO GROWTH AFTER 4 DAYS Anaerobic Blood Culture - Preliminary NO GROWTH AFTER 4 DAYS Med Orders - Current: Current Medications Acetaminophen (Tylenol) 650 mg PO Q4H PRN PRN Reason: Pain/Fever Last Admin: 11/04/19 20:26 Dose: 650 mg Dextrose/Water (Dextrose 50% In Water) 50 ml IVPUSH ASDIRECTED PRN PRN Reason: Hypoglycemia Diltiazem HCl (Dilacor Xr) 240 mg PO DAILY [facility] Last Admin: 11/04/19 08:58 Dose: 240 mg Insulin Glargine (Lantus) 12 unit SUBCUT BEDTIME [facility] Last Admin: 11/04/19 20:25 Dose: 12 unit Insulin Human Lispro (Humalog) 0 unit SUBCUT QIDACANDBED [facility]; Protocol Last Admin: 11/05/19 07:01 Dose: Not Given Insulin Human Lispro (Humalog) 2 unit SUBCUT TIDPC [facility] Last Admin: 11/04/19 19:06 Dose: Not Given Ondansetron HCl (Zofran) 4 mg IV Q4H PRN PRN Reason: Nausea/Vomiting Sodium Chloride (Saline Flush) 10 ml FLUSH ASDIRECTED PRN PRN Reason: Keep Vein Open Last Admin: 10/31/19 09:31 Dose: 10 ml Discontinued Medications Diltiazem HCl (Cardizem Cd) 240 mg PO DAILY [facility] Last Admin: 11/03/19 09:12 Dose: 240 mg Furosemide (Lasix) 40 mg IVPUSH NOW ONE Stop: 11/02/19 08:03 Last Admin: 11/02/19 08:15 Dose: 40 mg Furosemide (Lasix) 20 mg IVPUSH ONETIME ONE Stop: 11/04/19 06:57 Last Admin: 11/04/19 07:36 Dose: 20 mg Furosemide (Lasix) 20 mg IVPUSH ONETIME ONE Stop: 11/04/19 08:38 Last Admin: 11/04/19 08:56 Dose: 20 mg Sodium Chloride (Normal Saline) 1,000 mls @ 999 mls/hr IV BOLUS ONE Stop: 10/31/19 10:17 Last Admin: 10/31/19 09:31 Dose: 999 mls/hr Ceftriaxone Sodium 2 gm/ (Sodium Chloride) 100 mls @ 200 mls/hr IV ONETIME ONE Stop: 10/31/19 10:56 Last Admin: 10/31/19 10:47 Dose: 200 mls/hr Lactated Ringer's (Ringers, Lactated) 1,000 mls @ 999 mls/hr IV ASDIRECTED [facility] Last Admin: 10/31/19 10:47 Dose: 999 mls/hr Lactated Ringer's (Ringers, Lactated) 1,000 mls @ 150 mls/hr IV ASDIRECTED [facility] Last Admin: 10/31/19 11:39 Dose: 150 mls/hr Sodium Chloride (Sodium Chloride 0.45%) 1,000 mls @ 250 mls/hr IV ASDIRECTED [facility] Last Infusion: 10/31/19 16:42 Dose: 350 mls/hr Insulin Human Regular 100 unit (/ Sodium Chloride) 100 mls @ 6.19 mls/hr IV TITRATE [facility]; Protocol Last Titration: 11/01/19 09:38 Dose: 0.01 units/kg/hr, 1 mls/hr Potassium Chloride 10 meq/ (Premix) 100 mls @ 100 mls/hr IV Q1H [facility] Stop: 10/31/19 17:59 Last Admin: 10/31/19 17:45 Dose: 100 mls/hr Sodium Chloride (Sodium Chloride 0.45%) 1,000 mls @ 350 mls/hr IV ASDIRECTED [facility] Potassium Chloride/Sodium Chloride (1/2 Ns With 20 Meq Kcl) 1,000 mls @ 250 mls /hr IV ASDIRECTED [facility] Potassium Chloride 10 meq/ (Premix) 100 mls @ 100 mls/hr IV Q1H [facility] Stop: 10/31/19 21:59 Last Admin: 11/01/19 01:20 Dose: Not Given Potassium Chloride/Sodium Chloride (1/2 Ns With 20 Meq Kcl) 1,000 mls @ 250 mls /hr IV ASDIRECTED [facility] Sodium Chloride (Sodium Chloride 0.45%) 1,000 mls @ 150 mls/hr IV ASDIRECTED [facility] Last Infusion: 10/31/19 22:00 Dose: 150 mls/hr Potassium Chloride 10 meq/ (Premix) 100 mls @ 100 mls/hr IV Q1H [facility] Stop: 10/31/19 20:44 Last Admin: 10/31/19 20:07 Dose: 100 mls/hr Ceftriaxone Sodium 2 gm/ (Sodium Chloride) 100 mls @ 200 mls/hr IV Q24H [facility] Last Admin: 11/03/19 09:12 Dose: 200 mls/hr Dextrose/Sodium Chloride (Dextrose 5%-1/2 Ns) 1,000 mls @ 150 mls/hr IV ASDIRECTED [facility] Last Admin: 11/01/19 05:49 Dose: 150 mls/hr Potassium Chloride 10 meq/ (Premix) 100 mls @ 25 mls/hr IV Q1H [facility] Stop: 11/01/19 05:29 Last Admin: 11/01/19 13:32 Dose: Not Given Potassium Chloride/Dextrose/Sod Cl (D5 1/2 Ns W/ 20 Meq/L Kcl) 1,000 mls @ 150 mls/hr IV ASDIRECTED [facility] Last Admin: 11/01/19 10:16 Dose: 150 mls/hr Sodium Chloride (Sodium Chloride 0.45%) 1,000 mls @ 100 mls/hr IV ASDIRECTED [facility] Sodium Chloride (Sodium Chloride 0.45%) 1,000 mls @ 75 mls/hr IV ASDIRECTED [facility] Last Admin: 11/01/19 21:11 Dose: 75 mls/hr Sodium Chloride (Sodium Chloride 0.45%) 1,000 mls @ 75 mls/hr IV ASDIRECTED [facility] Last Admin: 11/03/19 21:32 Dose: 75 mls/hr Insulin Glargine (Lantus) 10 unit SUBCUT Q24H [facility] Last Admin: 11/02/19 17:39 Dose: 10 unit Insulin Glargine (Lantus) 5 unit SUBCUT NOW ONE Stop: 11/02/19 18:12 Last Admin: 11/02/19 18:42 Dose: 5 units Insulin Glargine (Lantus) 15 unit SUBCUT DAILY [facility] Last Admin: 11/04/19 08:57 Dose: 15 unit Insulin Human Lispro (Humalog) 3 unit SUBCUT ONETIME ONE Stop: 11/01/19 13:30 Last Admin: 11/01/19 14:51 Dose: 3 units Insulin Human Lispro (Humalog) 3 unit SUBCUT TIDAC [facility] Last Admin: 11/04/19 06:21 Dose: Not Given Insulin [facility]) [facility] Last Admin: 11/04/19 14:10 Dose: 3 units Insulin Human Regular (Humulin R) 6 unit IV ONETIME ONE Stop: 10/31/19 15:25 Last Admin: 10/31/19 16:15 Dose: 6 unit Potassium Chloride (Klor-Con M20) 40 meq PO ONETIME ONE Stop: 11/04/19 12:01 Last Admin: 11/04/19 13:17 Dose: 40 meq - Exam Quality Assessment: Reports: Supplemental Oxygen General: Reports: Alert HEENT: Reports: Pupils Equal, EOMI, Mucous Membr. Moist/[place] Neck: Reports: Supple Lungs: Reports: Clear to Auscultation, Normal Respiratory Effort Cardiovascular: Reports: Regular Rate, Regular Rhythm GI/Abdominal Exam: Normal Bowel Sounds, Soft, Non-Tender, No Distention Extremities: Normal Inspection, Pedal Edema
[2019-11-05] MEDS: Diltiazem 240 MG Cap.ER PO SCH (08:28)
[2019-11-05 09:48] VITALS: BP 158/73; PULSE 94
== END 2019-11-05 14:10 | DRG 640 ==
LOC: JD.ED 09:02 → JD.ICU 13:05 → JD.MS 11-04 17:05
PROVIDERS: ADMIT Family Medicine; ATTEND Family Medicine
PROC: 5A09357 Assistance with Respiratory Ventilation, Less than 24 Consecutive Hours, Continuous Positive Airway Pressure (ICD-10-PCS; principal; 2019-10-31)
DX: E11.01 Type 2 diabetes mellitus with hyperosmolarity with coma (principal); N28.9 Disorder of kidney and ureter, unspecified; R73.9 Hyperglycemia, unspecified; I10 Essential (primary) hypertension; I73.9 Peripheral vascular disease, unspecified; J96.91 Respiratory failure, unspecified with hypoxia; J96.92 Respiratory failure, unspecified with hypercapnia; E87.0 Hyperosmolality and hypernatremia; E87.2 Acidosis; N17.9 Acute kidney failure, unspecified; Z66 Do not resuscitate; F03.90 Unspecified dementia, unspecified severity, without behavioral disturbance, psychotic disturbance, mood disturbance, and anxiety; J44.9 Chronic obstructive pulmonary disease, unspecified; E78.00 Pure hypercholesterolemia, unspecified; M19.90 Unspecified osteoarthritis, unspecified site; F41.9 Anxiety disorder, unspecified; F32.9 Major depressive disorder, single episode, unspecified; Z89.611 Acquired absence of right leg above knee; Z79.82 Long term (current) use of aspirin; Z79.899 Other long term (current) drug therapy
CPT/HCPCS: 36415; 36600; 51701; 51702; 71045; 71045-26; 71046; 71046-26; 74176; 74176-26; 80048; 80053; 80061; 81003; 82009; 82043; 82803; 82947; 82962; 83036; 83605; 83735; 83880; 83930; 85007; 85025; 85027; 85610; 86140; 87040; 87641; 87804; 93005; 94660; 94761; 96361; 96365; 97110-GP; 97162-GP; 97166-GO; 97530-GO; 99283; 99285-25; A9270-GY; J0696; J1815-GY; J1940; J3480; J7030; J7042; J7050; J7120

== ENCOUNTER 2020-03-27 10:08 | Inpatient (IN) | payer MEDICARE, OTHER, MEDICAID ==
[2020-03-27] MEDS ORDERED: Sodium Chloride 0.9% 10 ML Syringe FLUSH PRN (10:22)
[2020-03-27] MEDS: Lactated Ringers 1,000 ML IV SCH (11:07)
[2020-03-27] MEDS ORDERED: Piperacillin/Tazobactam 4.5 GM in Sodium Chloride 0.9% 100 ML IV ONE ×2 (12:02→14:15)
[2020-03-27] MEDS ORDERED: cefTRIAXone 2 GM in Sodium Chloride 0.9% 100 ML IV ONE (12:15)
--- NOTE | 2020-03-27 12:42 | EDM.PDOC ---
ED HPI GENERAL MEDICAL PROBLEM - General Chief Complaint: Fever Stated Complaint: [facility] Time Seen by Provider: 03/27/20 10:12 Source of Information: Reports: Patient, EMS, [facility] Records History Limitations: Reports: No Limitations - History of Present Illness INITIAL COMMENTS - FREE TEXT/NARRATIVE: The patient presents by [facility] from [facility] for tachycardia. They noticed her heart rate was fast today at 120. She also has a fever or 101. She denies any cough. She has some shortness of breath requiring oxygen. She has no headache or chest pain. She has no pain with urination. She no abdominal pain, nausea or vomiting. Onset: Gradual Duration: Hour(s): Severity: Moderate Improves with: Reports: None Worsens with: Reports: None Associated Symptoms: Reports: Fever/Chills, Shortness of Breath. Denies: Chest Pain, Cough, Headaches, Nausea/Vomiting - Related Data Allergies Allergy/AdvReac Type Severity Reaction Status Date / Time No Known Allergies Allergy Verified 03/27/20 10:16 Home Meds: Home Meds Lisinopril 10 mg PO DAILY 05/26/16 [History] Aspirin 81 mg PO DAILY #30 tab.chew 05/27/16 [Rx] Acetaminophen [Tylenol Extra Strength] 650 mg PO Q6H PRN 05/22/17 [History] Bisacodyl [Laxative Suppository] 10 mg RECTAL DAILY PRN 10/31/19 [History] Diltiazem [Cardizem CD] 240 mg PO DAILY 10/31/19 [History] Sertraline [Zoloft] 50 mg PO BEDTIME 10/31/19 [History] Furosemide [Lasix] 20 mg PO DAILY #30 tab 11/05/19 [Rx] Insulin Glarg,Human.Rec.Analog [Lantus] 12 unit SUBCUT BEDTIME #1 vial 11/05/19 [Rx] Insulin Lispro [HumaLOG] 0 unit SUBCUT QIDACANDBED #0 vial 11/05/19 [Rx] Insulin Lispro [HumaLOG] 2 unit SUBCUT TIDPC #1 vial 11/05/19 [Rx] Rosuvastatin [Crestor] 10 mg PO DAILY #30 tab 11/05/19 [Rx] Past Medical History Cardiovascular History: Reports: Afib, High Cholesterol, Hypertension, PVD Respiratory History: Reports: COPD Gastrointestinal History: Reports: GERD Other Gastrointestinal History: incont of stool Genitourinary History: Reports: Other (See Below) Other Genitourinary History: Incont of urine TROUBLE CLERK History: Reports: Other TROUBLE CLERK History: Confused Musculoskeletal History: Reports: Osteoarthritis Neurological History: Reports: Alzheimers Disease Other Neuro History: Patient confused Psychiatric History: Reports: Anxiety, Depression Endocrine/Metabolic History: Reports: Diabetes, Type II Other Hematologic History: Confused - Infectious Disease History Infectious Disease History: Reports: MRSA Other Infectious Disease History: MRSA + 11/01/19 - Past Surgical History Musculoskeletal Surgical History: Reports: Amputation Social & Family History - Family History Family Medical History: Unobtainable Oncologic: Reports: Prostate - Tobacco Use Smoking Status *Q: Unknown Ever Smoked - Caffeine Use Caffeine Use: Reports: None Caffeine Use Comment: 2 cups per day - Recreational Drug Use Recreational Drug Use: No - Living Situation & Occupation Living situation: Reports: , with Spouse Occupation: Retired ED ROS GENERAL - Review of Systems Review Of Systems: See Below Constitutional: Reports: Fever, Weakness, Fatigue HEENT: Reports: No Symptoms Respiratory: Reports: Shortness of Breath. Denies: Cough Cardiovascular: Reports: No Symptoms Endocrine: Reports: No Symptoms GI/Abdominal: Reports: No Symptoms : Reports: No Symptoms Musculoskeletal: Reports: No Symptoms ED EXAM, SEPSIS - Physical Exam Exam: See Below Exam Limited By: No Limitations General Appearance: Alert, No Apparent Distress Ears: Normal External Exam Nose: Normal Inspection Head: Atraumatic, Normocephalic Neck: Normal Inspection, Supple, Non-Tender Respiratory/Chest: No Respiratory Distress, Lungs Clear, Normal Breath Sounds Cardiovascular: Regular Rate, Rhythm, No Edema, No Murmur GI/Abdominal Exam: Soft, Non-Tender, No Organomegaly, No Mass Back: Normal Inspection Extremities: Normal Inspection Course - Vital Signs Last Recorded V/S: Last Vital Signs Temp 101.1 F H 03/27/20 10:10 Pulse 122 H 03/27/20 10:10 Resp 27 H 03/27/20 10:10 BP 187/89 H 03/27/20 10:10 Pulse Ox 93 L 03/27/20 10:51 - Orders/Labs/Meds Orders: Active Orders 24 hr Category Date Time Status Oxygen Therapy [RC] PRN Care 03/27/20 10:22 Active Peripheral IV Care [RC] . DIRECTED Care 03/27/20 10:23 Active CXR [Chest 1V Frontal] [CR] Stat Exams 03/27/20 10:25 Taken CULTURE BLOOD [BC] Stat Lab 03/27/20 11:00 Received CULTURE BLOOD [BC] Stat Lab 03/27/20 12:02 Received Lactated Ringers [Ringers, Lactated] 1,000 ml Med 03/27/20 10:30 Active IV ASDIRECTED Sodium Chloride 0.9% [Saline Flush] Med 03/27/20 10:22 Active 10 ml FLUSH ASDIRECTED PRN Blood Culture x2 Reflex Set [OM.PC] Stat Oth 03/27/20 10:22 Ordered Peripheral IV Insertion Adult [OM.PC] Stat Oth 03/27/20 10:22 Ordered Medication Orders Lactated Ringer's (Ringers, Lactated) 1,000 mls @ 125 mls/hr IV ASDIRECTED CORRIE Last Admin: 03/27/20 11:07 Dose: 125 mls/hr Sodium Chloride (Saline Flush) 10 ml FLUSH ASDIRECTED PRN PRN Reason: Keep Vein Open Last Admin: 03/27/20 11:07 Dose: 10 ml Labs: Laboratory Tests 03/27/20 03/27/20 03/27/20 Range/Units 10:50 11:00 11:00 WBC 13.66 H (3.98-10.04) K/mm3 RBC 5.05 (3.98-5.22) M/mm3 Hgb 14.6 D (11.2-15.7) gm/dl Hct 47.6 H (34.1-44.9) % MCV 94.3 D (79.4-94.8) fl MCH 28.9 (25.6-32.2) pg MCHC 30.7 L (32.2-35.5) g/dl RDW Std Deviation 48.5 H (36.4-46.3) fL Plt Count 281 D (182-369) K/mm3 MPV 13.1 H (9.4-12.3) fl Neut % (Auto) 82.8 H (34.0-71.1) % Lymph % (Auto) 12.4 L (19.3-51.7) % [place] % (Auto) 4.5 L (4.7-12.5) % Eos % (Auto) 0.1 L (0.7-5.8) Baso % (Auto) 0.1 (0.1-1.2) % Neut # (Auto) 11.30 H (1.56-6.13) K/mm3 Lymph # (Auto) 1.69 (1.18-3.74) K/mm3 [place] # (Auto) 0.62 H (0.24-0.36) K/mm3 Eos # (Auto) 0.01 L (0.04-0.36) K/mm3 Baso # (Auto) 0.02 (0.01-0.08) K/mm3 Manual Slide Review Normal smear D-Dimer, Quantitative (0.19-0.50) mg/L Puncture Site ABG pH (7.35-7.45) ABG pCO2 (35.0-45.0) mmHg ABG pO2 (80.0-100.0) mmHg ABG HCO3 (22.0-26.0) meq/L ABG O2 Saturation (96.0-97.0) % ABG Base Excess (-2-2.0) Efrem Test A-a Gradient mmHg O2 Delivery Device Oxygen Flow Rate FiO2 (21.00-100.00) % Sodium (136-145) mEq/L Potassium (3.5-5.1) mEq/L Chloride (98-107) mEq/L Carbon Dioxide (21-32) mEq/L Anion Gap (5-15) BUN (7-18) mg/dL Creatinine (0.55-1.02) mg/dL Est Cr Clr Drug Dosing mL/min Estimated GFR (MDRD) (>60) mL/min BUN/Creatinine Ratio (14-18) Glucose (83-115) mg/dL Lactic Acid (0.4-2.0) mmol/L Calcium (8.5-10.1) mg/dL Ferritin (8-252) ng/ml Total Bilirubin (0.2-1.0) mg/dL AST (15-37) U/L ALT (14-59) U/L Alkaline Phosphatase (46-116) U/L C-Reactive Protein (<1.0) mg/dL Total Protein (6.4-8.2) g/dl Albumin (3.4-5.0) g/dl Globulin gm/dL Albumin/Globulin Ratio (1-2) Urine Color Yellow (Yellow) Urine Appearance Clear (Clear) Urine pH 6.5 (5.0-8.0) Ur Specific Rock 1.025 (1.005-1.030) Urine Protein Negative (Negative) Urine Glucose (UA) Trace H (Negative) Urine Ketones Negative (Negative) Urine Occult Blood Negative (Negative) Urine Nitrite Negative (Negative) Urine Bilirubin Negative (Negative) Urine Urobilinogen 0.2 (0.2-1.0) Ur Leukocyte Esterase Negative (Negative) Urine RBC 0-5 (0-5) /hpf Urine WBC 0-5 (0-5) /hpf Urine WBC Clumps Tissue Specialist Ur Squamous Epith Cells 0-5 (0-5) /hpf Urine Bacteria Few (FEW) /hpf Urine Mucus Not seen (FEW) /hpf Mycoplasma pneumon IgM (NEGATIVE) SARS-CoV-2 RNA (RT-PCR) Negative (NEGATIVE) 03/27/20 03/27/20 03/27/20 Range/Units 11:00 11:00 11:00 WBC (3.98-10.04) K/mm3 RBC (3.98-5.22) M/mm3 Hgb (11.2-15.7) gm/dl Hct (34.1-44.9) % MCV (79.4-94.8) fl MCH (25.6-32.2) pg MCHC (32.2-35.5) g/dl RDW Std Deviation (36.4-46.3) fL Plt Count (182-369) K/mm3 MPV (9.4-12.3) fl Neut % (Auto) (34.0-71.1) % Lymph % (Auto) (19.3-51.7) % Robeson % (Auto) (4.7-12.5) % Eos % (Auto) (0.7-5.8) Baso % (Auto) (0.1-1.2) % Neut # (Auto) (1.56-6.13) K/mm3 Lymph # (Auto) (1.18-3.74) K/mm3 [place] # (Auto) (0.24-0.36) K/mm3 Eos # (Auto) (0.04-0.36) K/mm3 Baso # (Auto) (0.01-0.08) K/mm3 Manual Slide Review D-Dimer, Quantitative 1.65 H (0.19-0.50) mg/L Puncture Site ABG pH (7.35-7.45) ABG pCO2 (35.0-45.0) mmHg ABG pO2 (80.0-100.0) mmHg ABG HCO3 (22.0-26.0) meq/L ABG O2 Saturation (96.0-97.0) % ABG Base Excess (-2-2.0) Efrem Test A-a Gradient mmHg O2 Delivery Device Oxygen Flow Rate FiO2 (21.00-100.00) % Sodium 146 H (136-145) mEq/L Potassium 4.4 (3.5-5.1) mEq/L Chloride 105 (98-107) mEq/L Carbon Dioxide 35 H (21-32) mEq/L Anion Gap 10.4 (5-15) BUN 35 H D (7-18) mg/dL Creatinine 1.1 H (0.55-1.02) mg/dL Est Cr Clr Drug Dosing 31.19 mL/min Estimated GFR (MDRD) 48 (>60) mL/min BUN/Creatinine Ratio 31.8 H (14-18) Glucose 433 H (83-115) mg/dL Lactic Acid (0.4-2.0) mmol/L Calcium 9.8 (8.5-10.1) mg/dL Ferritin 29 (8-252) ng/ml Total Bilirubin 0.2 (0.2-1.0) mg/dL AST 51 H (15-37) U/L ALT 67 H (14-59) U/L Alkaline Phosphatase 106 (46-116) U/L C-Reactive Protein 0.9 (<1.0) mg/dL Total Protein 8.0 (6.4-8.2) g/dl Albumin 3.4 (3.4-5.0) g/dl Globulin 4.6 gm/dL Albumin/Globulin Ratio 0.7 L (1-2) Urine Color (Yellow) Urine Appearance (Clear) Urine pH (5.0-8.0) Ur Specific Rock (1.005-1.030) Urine Protein (Negative) Urine Glucose (UA) (Negative) Urine Ketones (Negative) Urine Occult Blood (Negative) Urine Nitrite (Negative) Urine Bilirubin (Negative) Urine Urobilinogen (0.2-1.0) Ur Leukocyte Esterase (Negative) Urine RBC (0-5) /hpf Urine WBC (0-5) /hpf Urine WBC Clumps Ur Squamous Epith Cells (0-5) /hpf Urine Bacteria (FEW) /hpf Urine Mucus (FEW) /hpf Mycoplasma pneumon IgM (NEGATIVE) SARS-CoV-2 RNA (RT-PCR) (NEGATIVE) 03/27/20 03/27/20 03/27/20 Range/Units 11:00 11:00 13:08 WBC (3.98-10.04) K/mm3 RBC (3.98-5.22) M/mm3 Hgb (11.2-15.7) gm/dl Hct (34.1-44.9) % MCV (79.4-94.8) fl MCH (25.6-32.2) pg MCHC (32.2-35.5) g/dl RDW Std Deviation (36.4-46.3) fL Plt Count (182-369) K/mm3 MPV (9.4-12.3) fl Neut % (Auto) (34.0-71.1) % Lymph % (Auto) (19.3-51.7) % Robeson % (Auto) (4.7-12.5) % Eos % (Auto) (0.7-5.8) Baso % (Auto) (0.1-1.2) % Neut # (Auto) (1.56-6.13) K/mm3 Lymph # (Auto) (1.18-3.74) K/mm3 [place]eson # (Auto) (0.24-0.36) K/mm3 Eos # (Auto) (0.04-0.36) K/mm3 Baso # (Auto) (0.01-0.08) K/mm3 Manual Slide Review D-Dimer, Quantitative (0.19-0.50) mg/L Puncture Site Rt radial ABG pH 7.42 (7.35-7.45) ABG pCO2 58.2 H (35.0-45.0) mmHg ABG pO2 77.0 L (80.0-100.0) mmHg ABG HCO3 37.1 H (22.0-26.0) meq/L ABG O2 Saturation 95.7 L (96.0-97.0) % ABG Base Excess 10.5 H (-2-2.0) Efrem Test Positive A-a Gradient 51 mmHg O2 Delivery Device Nasal cannula Oxygen Flow Rate 2.0 FiO2 28.00 (21.00-100.00) % Sodium (136-145) mEq/L Potassium (3.5-5.1) mEq/L Chloride (98-107) mEq/L Carbon Dioxide (21-32) mEq/L Anion Gap (5-15) BUN (7-18) mg/dL Creatinine (0.55-1.02) mg/dL Est Cr Clr Drug Dosing mL/min Estimated GFR (MDRD) (>60) mL/min BUN/Creatinine Ratio (14-18) Glucose (83-115) mg/dL Lactic Acid 2.0 (0.4-2.0) mmol/L Calcium (8.5-10.1) mg/dL Ferritin (8-252) ng/ml Total Bilirubin (0.2-1.0) mg/dL AST (15-37) U/L ALT (14-59) U/L Alkaline Phosphatase (46-116) U/L C-Reactive Protein (<1.0) mg/dL Total Protein (6.4-8.2) g/dl Albumin (3.4-5.0) g/dl Globulin gm/dL Albumin/Globulin Ratio (1-2) Urine Color (Yellow) Urine Appearance (Clear) Urine pH (5.0-8.0) Ur Specific Rock (1.005-1.030) Urine Protein (Negative) Urine Glucose (UA) (Negative) Urine Ketones (Negative) Urine Occult Blood (Negative) Urine Nitrite (Negative) Urine Bilirubin (Negative) Urine Urobilinogen (0.2-1.0) Ur Leukocyte Esterase (Negative) Urine RBC (0-5) /hpf Urine WBC (0-5) /hpf Urine WBC Clumps Ur Squamous Epith Cells (0-5) /hpf Urine Bacteria (FEW) /hpf Urine Mucus (FEW) /hpf Mycoplasma pneumon IgM Negative (NEGATIVE) SARS-CoV-2 RNA (RT-PCR) (NEGATIVE) Meds: Medications Generic Name Dose Route Start Last Admin Trade Name Freq PRN Reason Stop Dose Admin Lactated Ringer's 1,000 mls @ 125 mls/hr 03/27/20 10:30 03/27/20 11:07 Ringers, Lactated IV 125 mls/hr ASDIRECTED CORRIE Administration Sodium Chloride 10 ml 03/27/20 10:22 03/27/20 11:07 Saline Flush FLUSH 10 ml ASDIRECTED PRN Administration Keep Vein Open Discontinued Medications Generic Name Dose Route Start Last Admin Trade Name Freq PRN Reason Stop Dose Admin Ceftriaxone Sodium 2 gm/ 100 mls @ 200 mls/hr 03/27/20 12:15 03/27/20 12:39 Sodium Chloride IV 03/27/20 12:44 200 mls/hr ONETIME ONE Administration Vancomycin HCl 1.5 gm/ Sodium 250 mls @ 250 mls/hr 03/27/20 12:01 Chloride IV 03/27/20 13:00 ONETIME ONE Piperacillin Sod/Tazobactam 100 mls @ 200 mls/hr 03/27/20 12:02 Sod 4.5 gm/ Sodium Chloride IV 03/27/20 12:31 ONETIME ONE - Re-Assessments/Exams Free Text/Narrative Re-Assessment/Exam: 03/27/20 13:01 I ordered oxygen, CXR, IV LR at 125mL/hr, labs, COVID 19 test, blood cultures and UA. 03/27/20 13:02 Her CXR shows nothing acute. Her COVID 19 was negative. Her WBC was elevated at 13.66. Her Na was a little elevated at 146. Her creatinine was a little elevated at 1.1. Her glucose was elevated at 433. Her AST is elevated at 51. Her ALT is elevated at 67. Her UA shows no UTI. She is septic but I am not sure of the source at this time. It could be blood. I have blood cultures ordered. I will give her some zosyn, vanco, and rocephin. I called Dr Bowling and she agreed to the admission. 03/27/20 13:24 Departure - Departure Time of Disposition: 13:25 Disposition: Admitted As Inpatient 68 Clinical Impression: Sepsis Qualifiers: Sepsis type: sepsis due to unspecified organism Sepsis acute organ dysfunction status: unspecified Qualified Code(s): A41.9 - Sepsis, unspecified organism Fever Qualifiers: Fever type: due to other condition Qualified Code(s): R50.81 - Fever presenting with conditions classified elsewhere - Discharge Information Referrals: Eduar Cheney MD [Primary Care Provider] - Forms: ED Department Discharge Sepsis Event Note - Evaluation Sepsis Screening Result: Possible Sepsis Risk - Focused Exam Vital Signs: Vital Signs Temp Pulse Resp BP Pulse Ox Pulse Ox 03/27/20 10:51 93 L 03/27/20 10:10 101.1 F H 122 H 27 H 187/89 H 92 L Date Exam was Performed: 03/27/20 Time Exam was Performed: 13:24 - My Orders Last 24 Hours: My Active Orders 03/27/20 10:22 Oxygen Therapy [RC] PRN Sodium Chloride 0.9% [Saline Flush] 10 ml FLUSH ASDIRECTED PRN Blood Culture x2 Reflex Set [OM.PC] Stat Peripheral IV Insertion Adult [OM.PC] Stat 03/27/20 10:23 Peripheral IV Care [RC] . DIRECTED 03/27/20 10:25 CXR [Chest 1V Frontal] [CR] Stat 03/27/20 10:30 Lactated Ringers [Ringers, Lactated] 1,000 ml IV ASDIRECTED 03/27/20 11:00 CULTURE BLOOD [BC] Stat 03/27/20 12:02 CULTURE BLOOD [BC] Stat - Assessment/Plan Last 24 Hours: My Active Orders 03/27/20 10:22 Oxygen Therapy [RC] PRN Sodium Chloride 0.9% [Saline Flush] 10 ml FLUSH ASDIRECTED PRN Blood Culture x2 Reflex Set [OM.PC] Stat Peripheral IV Insertion Adult [OM.PC] Stat 03/27/20 10:23 Peripheral IV Care [RC] . DIRECTED 03/27/20 10:25 CXR [Chest 1V Frontal] [CR] Stat 03/27/20 10:30 Lactated Ringers [Ringers, Lactated] 1,000 ml IV ASDIRECTED 03/27/20 11:00 CULTURE BLOOD [BC] Stat 03/27/20 12:02 CULTURE BLOOD [BC] Stat
--- NOTE | 2020-03-27 13:59 | PCM.HP.2 ---
H&P History of Present Illness - General Date of Service: 03/27/20 Admit Problem/Dx: Admission Diagnosis/Problem Admission Diagnosis/Problem Sepsis - History of Present Illness Initial Comments - Free Text/Narative: Unable to get full history due to patients baseline cognitive function Is an 84-year-old female with past medical history of dementia who was brought to the emergency department from [facility] after being found tachycardic and febrile. - Related Data Allergies/Adverse Reactions: Allergies Allergy/AdvReac Type Severity Reaction Status Date / Time No Known Allergies Allergy Verified 03/27/20 10:16 Home Medications: Home Meds Lisinopril 10 mg PO DAILY 05/26/16 [History] Aspirin 81 mg PO DAILY #30 tab.chew 05/27/16 [Rx] Acetaminophen [Tylenol Extra Strength] 650 mg PO Q6H PRN 05/22/17 [History] Bisacodyl [Laxative Suppository] 10 mg RECTAL DAILY PRN 10/31/19 [History] Diltiazem [Cardizem CD] 240 mg PO DAILY 10/31/19 [History] Sertraline [Zoloft] 50 mg PO BEDTIME 10/31/19 [History] Bisacodyl [Laxative Suppository] 1 supp RECTAL DAILY PRN 03/27/20 [History] Celecoxib [CeleBREX] 100 mg PO QAM 03/27/20 [History] Furosemide [Lasix] 40 mg PO QAM 03/27/20 [History] Insulin Glarg,Human.Rec.Analog [Lantus] 15 units SQ BEDTIME 03/27/20 [History] Insulin Lispro [HumaLOG] 2 unit SUBCUT ACLUNCH 03/27/20 [History] Insulin Lispro [HumaLOG] 4 unit SUBCUT ACBREAKFASTANDBED 03/27/20 [History] Potassium Chloride 20 meq PO QAM 03/27/20 [History] Rosuvastatin [Crestor] 10 mg PO QPM 03/27/20 [History] traMADol [Ultram] 1 tab PO Q8HR PRN 03/27/20 [History] Past Medical History Cardiovascular History: Reports: Afib, High Cholesterol, Hypertension, PVD Respiratory History: Reports: COPD Gastrointestinal History: Reports: GERD Other Gastrointestinal History: incont of stool Genitourinary History: Reports: Other (See Below) Other Genitourinary History: Incont of urine 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: Other OB/BYN History: Confused Musculoskeletal History: Reports: Osteoarthritis Neurological History: Reports: Alzheimers Disease Other Neuro History: Patient confused Psychiatric History: Reports: Anxiety, Depression Endocrine/Metabolic History: Reports: Diabetes, Type II Other Hematologic History: Confused - Infectious Disease History Infectious Disease History: Reports: MRSA Other Infectious Disease History: MRSA + 11/01/19 - Past Surgical History Musculoskeletal Surgical History: Reports: Amputation Social & Family History - Family History Family Medical History: Unobtainable Oncologic: Reports: Prostate - Tobacco Use Smoking Status *Q: Unknown Ever Smoked - Caffeine Use Caffeine Use: Reports: None Caffeine Use Comment: 2 cups per day - Recreational Drug Use Recreational Drug Use: No - Living Situation & Occupation Living situation: Reports: , with Spouse Occupation: Retired H&P Review of Systems - Review of Systems: Review Of Systems: Unable To Obtain Reason Not Obtained: baseline cognitive status is dementia Exam - Exam Exam: See Below - Vital Signs Vital Signs: Last Vital Signs Temp 101.1 F H 03/27/20 10:10 Pulse 122 H 03/27/20 10:10 Resp 27 H 03/27/20 10:10 BP 187/89 H 03/27/20 10:10 Pulse Ox 93 L 03/27/20 10:51 Weight: 61.235 kg - Exam Quality Assessment: Supplemental Oxygen General: Alert, Cooperative. No: Mild Distress HEENT: Conjunctiva Clear, EACs Clear, Mucosa Moist & [place] Neck: Supple, Trachea Midline. No: Lymphadenopathy Lungs: Decreased Breath Sounds. No: Normal Respiratory Effort, Crackles, Rales , Rhonchi, Rub, Wheezing Cardiovascular: Regular Rate, Regular Rhythm. No: Systolic Murmur, Diastolic Murmur, Rubs, Gallop/S3, Gallop/S4 GI/Abdominal Exam: Normal Bowel Sounds, Soft, Non-Tender. No: Distended, Guarding, Rigid, Rebound Extremities: Other (AKA on right, no edema and slow capillary refill on left) Skin: Warm, Dry - Patient Data Result Diagrams: 03/27/20 11:00 03/27/20 11:00 Sepsis Event Note - Evaluation Sepsis Screening Result: Possible Sepsis Risk - Focused Exam Vital Signs: Vital Signs Temp Pulse Resp BP Pulse Ox Pulse Ox 03/27/20 10:51 93 L 03/27/20 10:10 101.1 F H 122 H 27 H 187/89 H 92 L Date Exam was Performed: 03/27/20 Time Exam was Performed: 16:37 - Problem List (1) Sepsis SNOMED Code(s): 05151560 ICD Code: A41.9 - SEPSIS, UNSPECIFIED ORGANISM Status: Acute Current Visit: Yes Qualifiers: Sepsis type: sepsis due to unspecified organism Sepsis acute organ dysfunction status: unspecified Qualified Code(s): A41.9 - Sepsis, unspecified organism (2) Fever SNOMED Code(s): 527381662 ICD Code: R50.9 - FEVER, UNSPECIFIED Status: Acute Current Visit: Yes Qualifiers: Fever type: due to other condition Qualified Code(s): R50.81 - Fever presenting with conditions classified elsewhere (3) Chronic hypoxemic respiratory failure SNOMED Code(s): 515763165 ICD Code: J96.11 - CHRONIC RESPIRATORY FAILURE WITH HYPOXIA Status: Acute Current Visit: Yes (4) Alzheimer's dementia SNOMED Code(s): 53968269 ICD Code: G30.9 - ALZHEIMER'S DISEASE, UNSPECIFIED; F02.80 - DEMENTIA IN OTH DISEASES CLASSD ELSWHR W/O BEHAVRL DISTURB Status: Acute Current Visit: Yes (5) Hypertension SNOMED Code(s): 01594633 ICD Code: I10 - ESSENTIAL (PRIMARY) HYPERTENSION Status: Acute Current Visit: Yes (6) Paroxysmal atrial fibrillation SNOMED Code(s): 938943385 ICD Code: I48.0 - PAROXYSMAL ATRIAL FIBRILLATION Status: Acute Current Visit: Yes (7) Peripheral vascular disease SNOMED Code(s): 222047705 ICD Code: I73.9 - PERIPHERAL VASCULAR DISEASE, UNSPECIFIED Status: Acute Current Visit: Yes (8) Diabetes mellitus SNOMED Code(s): 98647212 ICD Code: E11.9 - TYPE 2 DIABETES MELLITUS WITHOUT COMPLICATIONS Status: Acute Current Visit: Yes (9) Dyslipidemia SNOMED Code(s): 563773390 ICD Code: E78.5 - HYPERLIPIDEMIA, UNSPECIFIED Status: Acute Current Visit : Yes (10) senior care resident SNOMED Code(s): 215941537 ICD Code: Z59.3 - PROBLEMS RELATED TO LIVING IN RESIDENTIAL INSTITUTION Status: Acute Current Visit: Yes (11) COPD (chronic obstructive pulmonary disease) SNOMED Code(s): 65991846 ICD Code: J44.9 - CHRONIC OBSTRUCTIVE PULMONARY DISEASE, UNSPECIFIED Status : Chronic Current Visit: No Qualifiers: COPD type: unspecified COPD Qualified Code(s): J44.9 - Chronic obstructive pulmonary disease, unspecified (12) History of MRSA infection SNOMED Code(s): 886819279, 647425827 ICD Code: Z86.14 - PERSONAL HISTORY OF METHICILLIN RESIS STAPH INFECTION Status: Acute Current Visit: Yes (13) Chronic hypercapnic respiratory failure Status: Acute Current Visit: Yes Problem List Initiated/Reviewed/Updated: Yes Assessment/Plan Comment:: ASSESSMENT Day of Admission - Febrile and tachycardic at assisted - senior care has had multiple COVID patient's - Ferritin is normal - DD is elevated - On admission heart rate of 122 and temperature of 101.1 - Unknown baseline oxygen sats but on admission 92% on 2 L, chronically O2 dependent - No reports of worsening hypoxemia - She has a baseline GFR that is normal, GFR today is 48 - Likely has some volume depletion which caused her tachycardia - Volume depletion could be from fever - WBC count 13.66 and borderline lactic acid of 2 - Admission chest XR without any interval changes compared to 10/2019 - No wheezing or crackles on physical exam but patient is not taking deep enough breaths - Meets SIRS criteria with infection of unknown source but no organ dysfunction was found PLAN BY PROBLEMS Sepsis, unknown source Fever History of MRSA + on 11/01/19 Chronic hypoxemic respiratory failure COPD (chronic obstructive pulmonary disease) - Start Vancomycin, Zosyn and Levaquin - Trend temperature and panculture if febrile ( for her fever is >99) - Blood cultures - Procalcitonin every 48 hours - COVID test - Mycoplasma test - Urinalysis - Repeat lactic acid level - ABGs - Contact precautions Acute kidney injury - Fractional excretion of sodium - Monitor urine output - Avoid nephrotoxic medications - IVF repletion with LR - Repeat lactic acid Diabetes mellitus, unknown HbA1c - Continue Lantus - Continue Lispro - Hypoglycemia protocol - Accuchecks TID AC and HS - New HbA1c Hypertension - Continue home lisinopril Paroxysmal atrial fibrillation - Telemetry - Monitor VS - Continue Cardizem - Obtain records for baseline HR trend Alzheimer's dementia senior care resident - Let me sleep protocol - Last BM 03/27/20 PROPHYLAXIS DVT- Lovenox GI- not indicated CODE STATUS: DNR/DNI MPOA: Daughter, Teresa Cline (Becky) ([phone]) DISPOSITION: Patient brought to the ED with tachycardia and fever, unknown source of infection with borderline elevated lactic acid started on IVF in ED and broad spectrum antibiotic coverage. Cultures have been sent and patient will be fully admitted to med surg unit with telemetry. SOCIAL: Resident of [facility] 1 assist for bed mobility, dressing, personal hygiene and bathing 2 assist for transfer Incontinent of urine, wears diapers Pneumovax 01/2018 Prevnar 08/2015 Flu 08/2019 - Mortality Measure Prognosis:: Poor (Overall prognosis is poor due to performace status and comorbidities)
[2020-03-27] MEDS ORDERED: Vancomycin 1 GM, Vancomycin 500 MG in Sodium Chloride 0.9% 500 ML IV ONE (14:15)
[2020-03-27] MEDS ORDERED: Levofloxacin/Dextrose 5%-Water 750 MG in Premix Bag 1 BAG IV SCH (16:00)
[2020-03-27] MEDS ORDERED: 50% Dextrose in Water 50 ML Syringe IVPUSH PRN (16:38)
[2020-03-27 17:07] LABS: HEMOGLOBIN A1C 7.6 % (4.50-6.20)
[2020-03-27] MEDS ORDERED: Bisacodyl 10 MG Supp RECTAL PRN (19:37)
[2020-03-27] MEDS ORDERED: traMADol 50 MG Tab PO PRN (19:37)
[2020-03-27] MEDS ORDERED: Ondansetron 4 MG/2 ML SDV IVPUSH SCH (21:00)
[2020-03-27] MEDS ORDERED: INSULIN LISPRO 100 UNIT SQ SCH (21:00)
[2020-03-27] MEDS: Piperacillin/Tazobactam 4.5 GM in Sodium Chloride 0.9% 100 ML IV SCH (22:16)
[2020-03-27] MEDS: Insulin Glarg,Human.Rec.Analog 100 Unit/ML SUBCUT SCH (22:16)
[2020-03-27] MEDS: Insulin Lispro 100 Units/ML 3 ML Vial SUBCUT SCH ×2 (22:17→22:18)
[2020-03-27] MEDS: Sertraline 50 MG Tab PO SCH (22:19)
[2020-03-28] MEDS: Lactated Ringers 1,000 ML IV SCH (02:17)
[2020-03-28] MEDS: Piperacillin/Tazobactam 4.5 GM in Sodium Chloride 0.9% 100 ML IV SCH ×3 (05:01→20:26)
[2020-03-28] MEDS ORDERED: Potassium Chloride 20 MEQ Tab.ER PO SCH (08:00)
[2020-03-28] MEDS ORDERED: Diltiazem 240 MG Cap.ER PO SCH (08:00)
[2020-03-28] MEDS ORDERED: Furosemide 40 MG Tab PO SCH (08:00)
[2020-03-28] MEDS ORDERED: Lisinopril 10 MG Tab PO SCH (08:00)
[2020-03-28] MEDS ORDERED: Celecoxib 100 MG Cap PO SCH (08:00)
[2020-03-28] MEDS: Aspirin 81 MG Tab.EC PO SCH (08:32)
[2020-03-28] MEDS: Insulin Lispro 100 Units/ML 3 ML Vial SUBCUT SCH ×6 (08:33→18:13)
[2020-03-28] MEDS: Enoxaparin 40 MG/0.4 ML Syringe SUBCUT SCH (08:35)
--- NOTE | 2020-03-28 11:11 | CR ---
Chest: Portable view of the chest was obtained. Comparison: Prior chest x-ray 11/01/19. Heart size and mediastinum are normal. Surgical clips are seen within the right axillary region. Lungs are clear with no acute parenchymal change. Bony structures are grossly intact. Impression: 1. Nothing acute is seen on portable chest x-ray. Diagnostic code #2 This report was dictated in MDT
--- NOTE | 2020-03-28 12:59 | PCM.PN ---
- General Info Date of Service: 03/28/20 Subjective Update: Slept OK Eating OK No complaints - Patient Data Vitals - Most Recent: Last Vital Signs Temp 98.2 F 03/28/20 08:04 Pulse 80 03/28/20 08:04 Resp 18 03/28/20 08:04 BP 141/63 H 03/28/20 08:04 Pulse Ox 94 L 03/28/20 08:04 Weight - Most Recent: 62.199 kg - Exam Quality Assessment: Supplemental Oxygen General: Alert, Cooperative, No Acute Distress HEENT: Mucous Membr. Moist/[place] Neck: Supple Lungs: Decreased Breath Sounds. No: Crackles, Rales, Rhonchi, Rub, Stridor, Wheezing Cardiovascular: Regular Rate, Regular Rhythm. No: Murmurs, Gallops, Rubs GI/Abdominal Exam: Normal Bowel Sounds, Soft, Non-Tender Neurological: No New Focal Deficit Psy/Mental Status: Alert Sepsis Event Note - Evaluation Sepsis Screening Result: No Definite Risk - Focused Exam Vital Signs: Vital Signs Temp Pulse Resp BP Pulse Ox 03/28/20 08:04 98.2 F 80 18 141/63 H 94 L 03/28/20 05:08 98.1 F 93 20 153/72 H 96 Date Exam was Performed: 03/28/20 Time Exam was Performed: 12:54 - Problem List & Annotations (1) Sepsis SNOMED Code(s): 76151900 Code(s): A41.9 - SEPSIS, UNSPECIFIED ORGANISM Status: Acute Current Visit : Yes Qualifiers: Sepsis type: sepsis due to unspecified organism Sepsis acute organ dysfunction status: unspecified Qualified Code(s): A41.9 - Sepsis, unspecified organism (2) Fever SNOMED Code(s): 824995103 Code(s): R50.9 - FEVER, UNSPECIFIED Status: Acute Current Visit: Yes Qualifiers: Fever type: due to other condition Qualified Code(s): R50.81 - Fever presenting with conditions classified elsewhere (3) Chronic hypoxemic respiratory failure SNOMED Code(s): 627179357 Code(s): J96.11 - CHRONIC RESPIRATORY FAILURE WITH HYPOXIA Status: Acute Current Visit: Yes (4) Alzheimer's dementia SNOMED Code(s): 74440861 Code(s): G30.9 - ALZHEIMER'S DISEASE, UNSPECIFIED; F02.80 - DEMENTIA IN OTH DISEASES CLASSD ELSWHR W/O BEHAVRL DISTURB Status: Acute Current Visit: Yes (5) Hypertension SNOMED Code(s): 66819917 Code(s): I10 - ESSENTIAL (PRIMARY) HYPERTENSION Status: Acute Current Visit: Yes (6) Paroxysmal atrial fibrillation SNOMED Code(s): 107326582 Code(s): I48.0 - PAROXYSMAL ATRIAL FIBRILLATION Status: Acute Current Visit: Yes (7) Peripheral vascular disease SNOMED Code(s): 193061399 Code(s): I73.9 - PERIPHERAL VASCULAR DISEASE, UNSPECIFIED Status: Acute Current Visit: Yes (8) Diabetes mellitus SNOMED Code(s): 15713990 Code(s): E11.9 - TYPE 2 DIABETES MELLITUS WITHOUT COMPLICATIONS Status: Acute Current Visit: Yes (9) Dyslipidemia SNOMED Code(s): 684781194 Code(s): E78.5 - HYPERLIPIDEMIA, UNSPECIFIED Status: Acute Current Visit : Yes (10) alf resident SNOMED Code(s): 848368402 Code(s): Z59.3 - PROBLEMS RELATED TO LIVING IN RESIDENTIAL INSTITUTION Status: Acute Current Visit: Yes (11) COPD (chronic obstructive pulmonary disease) SNOMED Code(s): 96783347 Code(s): J44.9 - CHRONIC OBSTRUCTIVE PULMONARY DISEASE, UNSPECIFIED Status : Chronic Current Visit: No Qualifiers: COPD type: unspecified COPD Qualified Code(s): J44.9 - Chronic obstructive pulmonary disease, unspecified (12) History of MRSA infection SNOMED Code(s): 103769831, 047344496 Code(s): Z86.14 - PERSONAL HISTORY OF METHICILLIN RESIS STAPH INFECTION Status: Acute Current Visit: Yes (13) Chronic hypercapnic respiratory failure Status: Acute Current Visit: Yes - Problem List Review Problem List Initiated/Reviewed/Updated: Yes - Plan Plan:: ASSESSMENT Day of Admission - Febrile and tachycardic at [facility] - alf has had multiple COVID patient's - Ferritin is normal - DD is elevated - On admission heart rate of 122 and temperature of 101.1 - Unknown baseline oxygen sats but on admission 92% on 2 L, chronically O2 dependent - No reports of worsening hypoxemia - She has a baseline GFR that is normal, GFR today is 48 - Likely has some volume depletion which caused her tachycardia - Volume depletion could be from fever - WBC count 13.66 and borderline lactic acid of 2 - Admission chest XR without any interval changes compared to 10/2019 - No wheezing or crackles on physical exam but patient is not taking deep enough breaths - Meets SIRS criteria with infection of unknown source but no organ dysfunction was found Day 1 - Repeat lactic acid down 2-->1.3 - Afebrile since admission, 99.1 - WBC 13.66-->14.13 - GFR improved from 48-->60 - Mycoplasma negative - COVID negative - Glucose trend 141-433, 2u on sliding scale - BP trend 109-157/57-81 - HR trend 83-95, except for admission 109 - FeNa 2.48, not pre-renal - Na up from 146-->150 - No increased requirement of O2, SatO2 > 92% since admission - Blood cultures negative x 1 day - UA negative PLAN BY PROBLEMS Sepsis, unknown source Fever History of MRSA + on 11/01/19 Chronic hypoxemic respiratory failure COPD (chronic obstructive pulmonary disease) - Continue Vancomycin, Zosyn and Levaquin - Trend temperature and panculture if febrile ( for her fever is >99) - F/U on cultures - Procalcitonin every 48 hours - Contact precautions Acute kidney injury, improved Hypernatremia - Monitor urine output - Avoid nephrotoxic medications - Change LR for D5LR - Repeat BMP in AM Diabetes mellitus, HbA1c- 7.6% - Continue Lantus and Lispro - Hypoglycemia protocol - Accuchecks TID AC and HS Hypertension - Continue home lisinopril - PRN Hydralazine Paroxysmal atrial fibrillation - Telemetry - Monitor VS - Continue Cardizem - Obtain records for baseline HR trend Alzheimer's dementia alf resident - Let me sleep protocol - Last BM 03/27/20 PROPHYLAXIS DVT- Lovenox GI- not indicated CODE STATUS: DNR/DNI MPOA: Daughter, Teresa Cline (Becky) ([phone]) DISPOSITION: Patient brought to the ED with tachycardia and fever, unknown source of infection with borderline elevated lactic acid started on IVF in ED and broad spectrum antibiotic coverage. Cultures have been sent and patient will be remain admitted to med surg unit with telemetry. SOCIAL: Resident of [facility] 1 assist for bed mobility, dressing, personal hygiene and bathing 2 assist for transfer Incontinent of urine, wears diapers Pneumovax 01/2018 Prevnar 08/2015 Flu 08/2019
[2020-03-28] MEDS ORDERED: hydrALAZINE 20 MG/ML SDV IVPUSH PRN (13:11)
[2020-03-28] MEDS: Dextrose 5%-Lactated Ringers 1,000 ML IV SCH (15:47)
[2020-03-28] MEDS: Insulin Glarg,Human.Rec.Analog 100 Unit/ML SUBCUT SCH (20:27)
[2020-03-28] MEDS: Lisinopril 10 MG Tab PO SCH (20:34)
[2020-03-28] MEDS: Sertraline 50 MG Tab PO SCH (20:34)
[2020-03-29] MEDS: Dextrose 5%-Lactated Ringers 1,000 ML IV SCH ×3 (01:07→21:30)
[2020-03-29] MEDS: Piperacillin/Tazobactam 4.5 GM in Sodium Chloride 0.9% 100 ML IV SCH (05:22)
[2020-03-29] MEDS: Aspirin 81 MG Tab.EC PO SCH (07:59)
[2020-03-29] MEDS: Celecoxib 100 MG Cap PO SCH (08:00)
[2020-03-29] MEDS: Diltiazem 240 MG Cap.ER PO SCH (08:00)
[2020-03-29] MEDS: Furosemide 40 MG Tab PO SCH (08:00)
[2020-03-29] MEDS: Enoxaparin 40 MG/0.4 ML Syringe SUBCUT SCH (08:01)
[2020-03-29] MEDS: Insulin Lispro 100 Units/ML 3 ML Vial SUBCUT SCH ×6 (08:03→18:10)
[2020-03-29] MEDS ORDERED: Potassium Chloride 20 MEQ Tab.ER PO SCH (09:00)
[2020-03-29] MEDS ORDERED: Magnesium Sulfate/Water 2 GM in Premix Bag 1 BAG IV ONE (10:11)
[2020-03-29] MEDS ORDERED: Sodium Chloride 0.9% 10 ML Syringe FLUSH PRN (10:50)
[2020-03-29] MEDS ORDERED: Iopamidol 755 Mg/ML 100 ML Bottle IVPUSH ONE (10:50)
[2020-03-29] MEDS: Potassium Chloride 10 MEQ in Premix Bag 1 BAG IV SCH ×4 (10:51→14:43)
[2020-03-29] MEDS ORDERED: Sodium Chloride 0.9% 100 ML IV SCH (11:00)
--- NOTE | 2020-03-29 11:33 | PCM.PN ---
- General Info Date of Service: 03/29/20 Subjective Update: BM 5/ Very poor oral intake (0-40%) Slept OK No complaints - Patient Data Vitals - Most Recent: Last Vital Signs Temp 97.5 F 03/29/20 01:14 Pulse 70 03/29/20 01:14 Resp 18 03/29/20 01:14 BP 121/97 H 03/29/20 01:14 Pulse Ox 98 03/29/20 01:14 Weight - Most Recent: 61.825 kg - Exam Quality Assessment: Supplemental Oxygen General: Alert, Cooperative, No Acute Distress HEENT: EOMI, Mucous Membr. Moist/[place] Neck: Supple. No: Lymphadenopathy Lungs: Clear to Auscultation, Normal Respiratory Effort. No: Crackles, Rales, Rhonchi, Rub, Stridor, Wheezing Cardiovascular: Regular Rate, Regular Rhythm. No: Murmurs, Rubs GI/Abdominal Exam: Normal Bowel Sounds, Soft, Non-Tender. No: Distended, Guarding, Rigid Extremities: Normal Inspection, Pedal Edema Neurological: No New Focal Deficit Psy/Mental Status: Alert Sepsis Event Note - Evaluation Sepsis Screening Result: No Definite Risk - Focused Exam Vital Signs: Vital Signs Temp Pulse Resp BP Pulse Ox 03/29/20 01:14 97.5 F 70 18 121/97 H 98 Date Exam was Performed: 03/29/20 Time Exam was Performed: 11:24 - Problem List & Annotations (1) Sepsis SNOMED Code(s): 89704020 Code(s): A41.9 - SEPSIS, UNSPECIFIED ORGANISM Status: Acute Current Visit : Yes Qualifiers: Sepsis type: sepsis due to unspecified organism Sepsis acute organ dysfunction status: unspecified Qualified Code(s): A41.9 - Sepsis, unspecified organism (2) Fever SNOMED Code(s): 226472829 Code(s): R50.9 - FEVER, UNSPECIFIED Status: Acute Current Visit: Yes Qualifiers: Fever type: due to other condition Qualified Code(s): R50.81 - Fever presenting with conditions classified elsewhere (3) Chronic hypoxemic respiratory failure SNOMED Code(s): 649580319 Code(s): J96.11 - CHRONIC RESPIRATORY FAILURE WITH HYPOXIA Status: Acute Current Visit: Yes (4) Alzheimer's dementia SNOMED Code(s): 12087257 Code(s): G30.9 - ALZHEIMER'S DISEASE, UNSPECIFIED; F02.80 - DEMENTIA IN OTH DISEASES CLASSD ELSWHR W/O BEHAVRL DISTURB Status: Acute Current Visit: Yes (5) Hypertension SNOMED Code(s): 37140130 Code(s): I10 - ESSENTIAL (PRIMARY) HYPERTENSION Status: Acute Current Visit: Yes (6) Paroxysmal atrial fibrillation SNOMED Code(s): 468777527 Code(s): I48.0 - PAROXYSMAL ATRIAL FIBRILLATION Status: Acute Current Visit: Yes (7) Peripheral vascular disease SNOMED Code(s): 484212070 Code(s): I73.9 - PERIPHERAL VASCULAR DISEASE, UNSPECIFIED Status: Acute Current Visit: Yes (8) Diabetes mellitus SNOMED Code(s): 26053139 Code(s): E11.9 - TYPE 2 DIABETES MELLITUS WITHOUT COMPLICATIONS Status: Acute Current Visit: Yes (9) Dyslipidemia SNOMED Code(s): 686304529 Code(s): E78.5 - HYPERLIPIDEMIA, UNSPECIFIED Status: Acute Current Visit : Yes (10) [facility] resident SNOMED Code(s): 263261827 Code(s): Z59.3 - PROBLEMS RELATED TO LIVING IN RESIDENTIAL INSTITUTION Status: Acute Current Visit: Yes (11) COPD (chronic obstructive pulmonary disease) SNOMED Code(s): 80267510 Code(s): J44.9 - CHRONIC OBSTRUCTIVE PULMONARY DISEASE, UNSPECIFIED Status : Chronic Current Visit: No Qualifiers: COPD type: unspecified COPD Qualified Code(s): J44.9 - Chronic obstructive pulmonary disease, unspecified (12) History of MRSA infection SNOMED Code(s): 951446006, 274460668 Code(s): Z86.14 - PERSONAL HISTORY OF METHICILLIN RESIS STAPH INFECTION Status: Acute Current Visit: Yes (13) Chronic hypercapnic respiratory failure Status: Acute Current Visit: Yes (14) Hypokalemia SNOMED Code(s): 53105791 Code(s): E87.6 - HYPOKALEMIA Status: Acute Current Visit: Yes (15) Hypernatremia SNOMED Code(s): 159633955 Code(s): E87.0 - HYPEROSMOLALITY AND HYPERNATREMIA Status: Acute Current Visit: Yes (16) Acute hypoxemic respiratory failure SNOMED Code(s): 196244635 Code(s): J96.01 - ACUTE RESPIRATORY FAILURE WITH HYPOXIA Status: Acute Current Visit: Yes - Problem List Review Problem List Initiated/Reviewed/Updated: Yes - Plan Plan:: ASSESSMENT Day of Admission - Febrile and tachycardic at alf - [facility] has had multiple COVID patient's - Ferritin is normal - DD is elevated - On admission heart rate of 122 and temperature of 101.1 - Unknown baseline oxygen sats but on admission 92% on 2 L, chronically O2 dependent - No reports of worsening hypoxemia - She has a baseline GFR that is normal, GFR today is 48 - Likely has some volume depletion which caused her tachycardia - Volume depletion could be from fever - WBC count 13.66 and borderline lactic acid of 2 - Admission chest XR without any interval changes compared to 10/2019 - No wheezing or crackles on physical exam but patient is not taking deep enough breaths - Meets SIRS criteria with infection of unknown source but no organ dysfunction was found Day 1 - Repeat lactic acid down 2-->1.3 - Afebrile since admission, 99.1 - WBC 13.66-->14.13 - GFR improved from 48-->60 - Mycoplasma negative - COVID negative - Glucose trend 141-433, 2u on sliding scale - BP trend 109-157/57-81 - HR trend 83-95, except for admission 109 - FeNa 2.48, not pre-renal - Na up from 146-->150 - No increased requirement of O2, SatO2 > 92% since admission - Blood cultures negative x 1 day - UA negative Day 2 - Barely eating 40% of diet - Increased O2 requirement to 3L overnight, O2sat dropped to 85 while sleeping - Admission procalcitonin negative - Tmax 98.8 - HR trend 66-93 - BP trend 111-153/46-84 - Labs - K dropped form 3.6 to 3.4 - WBC improved from 14.13 to 11.14 - Na improved from 150-145 - Glucose trend 118-145 - No infectious source has been identified and procalcitonin from admission reported negative - Since no infectious source has been found will evaluate for other causes of worsening hypoxemia, fever and tachycardia PLAN BY PROBLEMS Acute on Chronic hypoxemic respiratory failure COPD (chronic obstructive pulmonary disease) - Discontinue Vancomycin, Zosyn and Levaquin - Trend temperature and panculture if febrile (for her fever is >99) - CTA chest today Acute kidney injury, improved Hypokalemia - Replace KCl 40mEq - Monitor urine output - Avoid nephrotoxic medications - Continue D5LR - Repeat BMP, Mg and PO4 in AM Diabetes mellitus, HbA1c- 7.6% - Increase lispro dose to 4u TID AC - Continue Lantus at 15u bedtime - Hypoglycemia protocol - Accuchecks TID AC and HS Hypertension - Continue home lisinopril - PRN Hydralazine Paroxysmal atrial fibrillation - Telemetry - Monitor VS - Continue [facility] Alzheimer's dementia [facility] resident - Let me sleep protocol - Last BM 03/27/20 History of MRSA + on 11/01/19 - Contact precautions Hypernatremia, resolved Sepsis, ruled out Fever, resolved PROPHYLAXIS DVT- Lovenox GI- not indicated CODE STATUS: DNR/DNI MPOA: Daughter, Teresa Cline (Becky) ([phone]) DISPOSITION: Patient brought to the ED with tachycardia and fever, unknown source of infection with borderline elevated lactic acid started on IVF in ED and broad spectrum antibiotic coverage. Procalcitonin was sent out and resulted negative for which ATBs have been discontinued today, will perform a CTA to r/o PE. SOCIAL: Resident of [facility] 1 assist for bed mobility, dressing, personal hygiene and bathing 2 assist for transfer Incontinent of urine, wears diapers Pneumovax 01/2018 Prevnar 08/2015 Flu 08/2019
--- NOTE | 2020-03-29 11:55 | CT ---
CT chest Technique: Multiple axial sections through the chest were obtained. Intravenous contrast was utilized. Comparison: Prior CT chest of 07/07/16. Findings: Bypass tubing is seen within the right chest. No definite contrast is seen within this bypass tubing and difficult to exclude chronic occlusion. Pulmonary arteries are well-opacified. No filling defects are seen to indicate discrete pulmonary embolism. Coronary artery calcification is seen. No mediastinal adenopathy is seen. No pericardial thickening is seen. Atherosclerotic change is noted within the thoracic aorta with no aneurysm. Emphysematous changes are noted within both lungs. Spiculated mass is noted within the left upper chest which represents a significant interval change from previous exam. Mass measures 3.3 cm x 1.7 cm. Minimal density on prior study is seen which has the appearance of a small scar on prior study. Lungs show no additional mass. Mild scarring or atelectasis is seen within both lung bases. Trace left-sided pleural effusion is noted. Bone window settings were reviewed which shows old compression deformities within the spine with diffuse degenerative change. No acute osseous finding is appreciated. Impression: 1. No findings of pulmonary embolism. 2. Spiculated mass within the left upper chest measuring 3.3 x 1.7 cm. This is highly suspicious for neoplasm which has occurred in the interim from prior study. 3. Emphysematous change is noted. 4. Other findings as noted above which are felt to be nonacute. Diagnostic code #9 Diana in HIM called report to Dr. An 03/29/20 at 12:15. This report was dictated in MDT MTDD
[2020-03-29] MEDS: Lisinopril 10 MG Tab PO SCH (21:30)
[2020-03-29] MEDS: Sertraline 50 MG Tab PO SCH (21:31)
[2020-03-29] MEDS: Insulin Glarg,Human.Rec.Analog 100 Unit/ML SUBCUT SCH (21:32)
[2020-03-30] MEDS: Dextrose 5%-Lactated Ringers 1,000 ML IV SCH ×2 (07:24→17:29)
[2020-03-30] MEDS: Enoxaparin 40 MG/0.4 ML Syringe SUBCUT SCH (08:53)
[2020-03-30] MEDS: Insulin Lispro 100 Units/ML 3 ML Vial SUBCUT SCH ×3 (08:56→17:31)
[2020-03-30] MEDS: Furosemide 40 MG Tab PO SCH (08:58)
[2020-03-30] MEDS: Potassium Chloride 20 MEQ Tab.ER PO SCH (08:59)
[2020-03-30] MEDS: Diltiazem 240 MG Cap.ER PO SCH (08:59)
[2020-03-30] MEDS: Aspirin 81 MG Tab.EC PO SCH (09:00)
[2020-03-30] MEDS: Celecoxib 100 MG Cap PO SCH (09:00)
--- NOTE | 2020-03-30 11:03 | PCM.PN ---
- General Info Date of Service: 03/30/20 (0) Subjective Update: No complaints Slept OK Last BM overnight Very poor oral intake but is eating her high protein jello - Patient Data Vitals - Most Recent: Last Vital Signs Temp 98.4 F 03/29/20 21:00 Pulse 76 03/29/20 21:00 Resp 16 03/29/20 21:00 BP 149/98 H 03/29/20 21:30 Pulse Ox 95 03/29/20 21:00 Weight - Most Recent: 62.188 kg - Exam Quality Assessment: Supplemental Oxygen General: Alert, Cooperative, Mild Distress. No: Oriented HEENT: Pupils Equal, Mucous Membr. Moist/[place] Neck: Supple, Trachea Midline, +2 Carotid Pulse wo Bruit. No: Lymphadenopathy Lungs: Decreased Breath Sounds, Crackles. No: Rales, Rhonchi, Rub, Stridor, Wheezing Cardiovascular: Regular Rate, Regular Rhythm. No: Murmurs, Gallops, Rubs GI/Abdominal Exam: Normal Bowel Sounds, Soft, Non-Tender. No: Distended, Guarding, Rigid Extremities: Non-Tender, No Pedal Edema, Normal Capillary Refill Neurological: No New Focal Deficit Sepsis Event Note - Evaluation Sepsis Screening Result: No Definite Risk - Problem List & Annotations (1) Sepsis SNOMED Code(s): 21133322 Code(s): A41.9 - SEPSIS, UNSPECIFIED ORGANISM Status: Acute Current Visit : Yes Qualifiers: Sepsis type: sepsis due to unspecified organism Sepsis acute organ dysfunction status: unspecified Qualified Code(s): A41.9 - Sepsis, unspecified organism (2) Fever SNOMED Code(s): 708715031 Code(s): R50.9 - FEVER, UNSPECIFIED Status: Acute Current Visit: Yes Qualifiers: Fever type: due to other condition Qualified Code(s): R50.81 - Fever presenting with conditions classified elsewhere (3) Chronic hypoxemic respiratory failure SNOMED Code(s): 491839747 Code(s): J96.11 - CHRONIC RESPIRATORY FAILURE WITH HYPOXIA Status: Acute Current Visit: Yes (4) Alzheimer's dementia SNOMED Code(s): 45952984 Code(s): G30.9 - ALZHEIMER'S DISEASE, UNSPECIFIED; F02.80 - DEMENTIA IN OTH DISEASES CLASSD ELSWHR W/O BEHAVRL DISTURB Status: Acute Current Visit: Yes (5) Hypertension SNOMED Code(s): 65333075 Code(s): I10 - ESSENTIAL (PRIMARY) HYPERTENSION Status: Acute Current Visit: Yes (6) Paroxysmal atrial fibrillation SNOMED Code(s): 135534768 Code(s): I48.0 - PAROXYSMAL ATRIAL FIBRILLATION Status: Acute Current Visit: Yes (7) Peripheral vascular disease SNOMED Code(s): 758919634 Code(s): I73.9 - PERIPHERAL VASCULAR DISEASE, UNSPECIFIED Status: Acute Current Visit: Yes (8) Diabetes mellitus SNOMED Code(s): 12659971 Code(s): E11.9 - TYPE 2 DIABETES MELLITUS WITHOUT COMPLICATIONS Status: Acute Current Visit: Yes (9) Dyslipidemia SNOMED Code(s): 781673008 Code(s): E78.5 - HYPERLIPIDEMIA, UNSPECIFIED Status: Acute Current Visit : Yes (10) [facility] resident SNOMED Code(s): 931579317 Code(s): Z59.3 - PROBLEMS RELATED TO LIVING IN RESIDENTIAL INSTITUTION Status: Acute Current Visit: Yes (11) COPD (chronic obstructive pulmonary disease) SNOMED Code(s): 72087923 Code(s): J44.9 - CHRONIC OBSTRUCTIVE PULMONARY DISEASE, UNSPECIFIED Status : Chronic Current Visit: No Qualifiers: COPD type: unspecified COPD Qualified Code(s): J44.9 - Chronic obstructive pulmonary disease, unspecified (12) History of MRSA infection SNOMED Code(s): 955958574, 310593123 Code(s): Z86.14 - PERSONAL HISTORY OF METHICILLIN RESIS STAPH INFECTION Status: Acute Current Visit: Yes (13) Chronic hypercapnic respiratory failure Status: Acute Current Visit: Yes (14) Hypokalemia SNOMED Code(s): 18758711 Code(s): E87.6 - HYPOKALEMIA Status: Acute Current Visit: Yes (15) Hypernatremia SNOMED Code(s): 443607281 Code(s): E87.0 - HYPEROSMOLALITY AND HYPERNATREMIA Status: Acute Current Visit: Yes (16) Acute hypoxemic respiratory failure SNOMED Code(s): 719242628 Code(s): J96.01 - ACUTE RESPIRATORY FAILURE WITH HYPOXIA Status: Acute Current Visit: Yes (17) Mass of left lung SNOMED Code(s): 169372660 Code(s): R91.8 - OTHER NONSPECIFIC ABNORMAL FINDING OF LUNG FIELD Status: Acute Current Visit: Yes - Problem List Review Problem List Initiated/Reviewed/Updated: Yes - Plan Plan:: ASSESSMENT Day of Admission - Febrile and tachycardic at alf - [facility] has had multiple COVID patient's - Ferritin is normal - DD is elevated - On admission heart rate of 122 and temperature of 101.1 - Unknown baseline oxygen sats but on admission 92% on 2 L, chronically O2 dependent - No reports of worsening hypoxemia - She has a baseline GFR that is normal, GFR today is 48 - Likely has some volume depletion which caused her tachycardia - Volume depletion could be from fever - WBC count 13.66 and borderline lactic acid of 2 - Admission chest XR without any interval changes compared to 10/2019 - No wheezing or crackles on physical exam but patient is not taking deep enough breaths - Meets SIRS criteria with infection of unknown source but no organ dysfunction was found Day 1 - Repeat lactic acid down 2-->1.3 - Afebrile since admission, 99.1 - WBC 13.66-->14.13 - GFR improved from 48-->60 - Mycoplasma negative - COVID negative - Glucose trend 141-433, 2u on sliding scale - BP trend 109-157/57-81 - HR trend 83-95, except for admission 109 - FeNa 2.48, not pre-renal - Na up from 146-->150 - No increased requirement of O2, SatO2 > 92% since admission - Blood cultures negative x 1 day - UA negative Day 2 - Barely eating 40% of diet - Increased O2 requirement to 3L overnight, O2sat dropped to 85 while sleeping - Admission procalcitonin negative - Tmax 98.8 - HR trend 66-93 - BP trend 111-153/46-84 - Labs - K dropped form 3.6 to 3.4 - WBC improved from 14.13 to 11.14 - Na improved from 150-145 - Glucose trend 118-145 - No infectious source has been identified and procalcitonin from admission reported negative - Since no infectious source has been found will evaluate for other causes of worsening hypoxemia, fever and tachycardia - Discussed CT results with son and daughter who is MPOA and she stated that she would have a discussion with her siblings regarding plan of care Day 3 - Still with low oral intake but has been eating her high protein gelatin - Repeat procalcitonin negative - CTA of the chest performed and reported negative for pulmonary embolus - New finding of spiculated mass in upper left lobe - Has continued to require 3LPM on NC - Glucose trend 120-159 - Cognitive evaluation performed today, pending recommendations - [facility] is requesting 2 negative COVID tests prior to transfer back - No fever spikes - HR 69-76x' - BP 106-141/78-98 - SatO2> 91% on 3LPM - Had another conversation with daughter who indicated that they had a discussion and had decided not to proceed with any diagnostic interventions regarding new lung mass - I explained that I do not think her is imminent but that she would be transferred back to [facility] and they could talk to her PCP about more options - Glucose trend 120-159 PLAN BY PROBLEMS Acute on Chronic hypoxemic respiratory failure COPD (chronic obstructive pulmonary disease) New spiculated mass on L lung, highly suggestive of neoplasm - Continue WI for air supplementation Acute kidney injury, improved - Monitor urine output - Avoid nephrotoxic medications - Repeat BMP, Mg and PO4 in AM Diabetes mellitus, HbA1c- 7.6% - Increase lispro dose to 4u TID AC - Continue Lantus at 15u bedtime - Hypoglycemia protocol - Accuchecks TID AC and HS Hypertension - Continue home lisinopril - PRN Hydralazine Paroxysmal atrial fibrillation - Monitor VS - Continue [facility] Alzheimer's dementia [facility] resident - Let me sleep protocol - Last BM 03/27/20 History of MRSA + on 11/01/19 - Contact precautions Hypernatremia, resolved Sepsis, ruled out Fever, resolved Hypokalemia, resolved PROPHYLAXIS DVT- Lovenox GI- not indicated CODE STATUS: DNR/DNI MPOA: Daughter, Teresa Cline (Becky) ([phone]) DISPOSITION: Patient brought to the ED with tachycardia and fever, unknown source of infection with borderline elevated lactic acid started on IVF in ED and broad spectrum antibiotic coverage. Procalcitonin was sent out and resulted negative for which ATBs have been discontinued and CT was negative for PE b ut had a new finding of spiculated mass in upper lobe of left lung Family has decided not to pursue aggressive diagnostics or management of mass. SOCIAL: Resident of [facility] alf 1 assist for bed mobility, dressing, personal hygiene and bathing 2 assist for transfer Incontinent of urine, wears diapers Pneumovax 01/2018 Prevnar 08/2015 Flu 08/2019
[2020-03-30] MEDS: Acetaminophen 325 MG Tab PO PRN ×2 (16:47→20:48)
[2020-03-30] MEDS: Lisinopril 10 MG Tab PO SCH (20:48)
[2020-03-30] MEDS: Sertraline 50 MG Tab PO SCH (20:48)
[2020-03-30] MEDS: Insulin Glarg,Human.Rec.Analog 100 Unit/ML SUBCUT SCH (20:52)
[2020-03-31] MEDS: Dextrose 5%-Lactated Ringers 1,000 ML IV SCH (03:00)
--- NOTE | 2020-03-31 07:26 | PCM.DCSUM1 ---
Discharge Summary - Hospital Course HPI Initial Comments: Unable to get full history due to patients baseline cognitive function Is an 84-year-old female with past medical history of dementia who was brought to the emergency department from [facility] after being found tachycardic and febrile. Diagnosis: Stroke: No - Discharge Data Discharge Date: 03/31/20 Discharge Disposition: DC/Tfer to SNF 03 Condition: Good - Referral to Home Health Primary Care Physician: Eduar Cheney MD - Discharge Diagnosis/Problem(s) (1) Sepsis SNOMED Code(s): 77327861 ICD Code: A41.9 - SEPSIS, UNSPECIFIED ORGANISM Status: Ruled-out Current Visit: Yes Qualifiers: Sepsis type: sepsis due to unspecified organism Sepsis acute organ dysfunction status: unspecified Qualified Code(s): A41.9 - Sepsis, unspecified organism (2) Fever SNOMED Code(s): 684987594 ICD Code: R50.9 - FEVER, UNSPECIFIED Status: Resolved Current Visit: Yes Qualifiers: Fever type: due to other condition Qualified Code(s): R50.81 - Fever presenting with conditions classified elsewhere (3) Chronic hypoxemic respiratory failure SNOMED Code(s): 275843206 ICD Code: J96.11 - CHRONIC RESPIRATORY FAILURE WITH HYPOXIA Status: Acute Current Visit: Yes (4) Alzheimer's dementia SNOMED Code(s): 57963473 ICD Code: G30.9 - ALZHEIMER'S DISEASE, UNSPECIFIED; F02.80 - DEMENTIA IN OTH DISEASES CLASSD ELSWHR W/O BEHAVRL DISTURB Status: Chronic Current Visit: Yes (5) Hypertension SNOMED Code(s): 59771532 ICD Code: I10 - ESSENTIAL (PRIMARY) HYPERTENSION Status: Chronic Current Visit: Yes (6) Paroxysmal atrial fibrillation SNOMED Code(s): 697393303 ICD Code: I48.0 - PAROXYSMAL ATRIAL FIBRILLATION Status: Acute Current Visit: Yes (7) Peripheral vascular disease SNOMED Code(s): 244335106 ICD Code: I73.9 - PERIPHERAL VASCULAR DISEASE, UNSPECIFIED Status: Acute Current Visit: Yes (8) Diabetes mellitus SNOMED Code(s): 94043621 ICD Code: E11.9 - TYPE 2 DIABETES MELLITUS WITHOUT COMPLICATIONS Status: Chronic Current Visit: Yes Qualifiers: Diabetes mellitus type: type 2 Diabetes mellitus bed bug exterminator insulin use: with bed bug exterminator use Diabetes mellitus complication status: with circulatory complication Diabetes mellitus complication detail: with other circulatory complications Qualified Code(s): E11.59 - Type 2 diabetes mellitus with other circulatory complications; Z79.4 - [facility] (current) use of insulin (9) Dyslipidemia SNOMED Code(s): 286503706 ICD Code: E78.5 - HYPERLIPIDEMIA, UNSPECIFIED Status: Acute Current Visit : Yes (10) skilled nursing resident SNOMED Code(s): 643357612 ICD Code: Z59.3 - PROBLEMS RELATED TO LIVING IN RESIDENTIAL INSTITUTION Status: Acute Current Visit: Yes (11) COPD (chronic obstructive pulmonary disease) SNOMED Code(s): 93388541 ICD Code: J44.9 - CHRONIC OBSTRUCTIVE PULMONARY DISEASE, UNSPECIFIED Status : Chronic Current Visit: No Qualifiers: COPD type: unspecified COPD Qualified Code(s): J44.9 - Chronic obstructive pulmonary disease, unspecified (12) History of MRSA infection SNOMED Code(s): 312559858, 190052518 ICD Code: Z86.14 - PERSONAL HISTORY OF METHICILLIN RESIS STAPH INFECTION Status: Acute Current Visit: Yes (13) Chronic hypercapnic respiratory failure Status: Acute Current Visit: Yes (14) Hypokalemia SNOMED Code(s): 90763145 ICD Code: E87.6 - HYPOKALEMIA Status: Acute Current Visit: Yes (15) Hypernatremia SNOMED Code(s): 483896365 ICD Code: E87.0 - HYPEROSMOLALITY AND HYPERNATREMIA Status: Acute Current Visit: Yes (16) Acute hypoxemic respiratory failure SNOMED Code(s): 806883341 ICD Code: J96.01 - ACUTE RESPIRATORY FAILURE WITH HYPOXIA Status: Acute Current Visit: Yes (17) Mass of left lung SNOMED Code(s): 681388815 ICD Code: R91.8 - OTHER NONSPECIFIC ABNORMAL FINDING OF LUNG FIELD Status: Acute Current Visit: Yes (18) Mild cognitive impairment with memory loss SNOMED Code(s): 339686295, 936500143 ICD Code: G31.84 - MILD COGNITIVE IMPAIRMENT, SO STATED Status: Acute Current Visit: Yes - Patient Summary/Data Hospital Course: ASSESSMENT Day of Admission - Febrile and tachycardic at [facility] - skilled nursing has had multiple COVID patient's - Ferritin is normal - DD is elevated - On admission heart rate of 122 and temperature of 101.1 - Unknown baseline oxygen sats but on admission 92% on 2 L, chronically O2 dependent - No reports of worsening hypoxemia - She has a baseline GFR that is normal, GFR today is 48 - Likely has some volume depletion which caused her tachycardia - Volume depletion could be from fever - WBC count 13.66 and borderline lactic acid of 2 - Admission chest XR without any interval changes compared to 10/2019 - No wheezing or crackles on physical exam but patient is not taking deep enough breaths - Meets SIRS criteria with infection of unknown source but no organ dysfunction was found Day 1 - Repeat lactic acid down 2-->1.3 - Afebrile since admission, 99.1 - WBC 13.66-->14.13 - GFR improved from 48-->60 - Mycoplasma negative - COVID negative - Glucose trend 141-433, 2u on sliding scale - BP trend 109-157/57-81 - HR trend 83-95, except for admission 109 - FeNa 2.48, not pre-renal - Na up from 146-->150 - No increased requirement of O2, SatO2 > 92% since admission - Blood cultures negative x 1 day - UA negative - Evaluated by speech therapy - Diagnosis: Moderate cognitive impairment - Recommendation: The patient should have supervision for all daily activities. Day 2 - Barely eating 40% of diet - Increased O2 requirement to 3L overnight, O2sat dropped to 85 while sleeping - Admission procalcitonin negative - Tmax 98.8 - HR trend 66-93 - BP trend 111-153/46-84 - Labs - K dropped form 3.6 to 3.4 - WBC improved from 14.13 to 11.14 - Na improved from 150-145 - Glucose trend 118-145 - No infectious source has been identified and procalcitonin from admission reported negative - Since no infectious source has been found will evaluate for other causes of worsening hypoxemia, fever and tachycardia - Discussed CT results with son and daughter who is MPOA and she stated that she would have a discussion with her siblings regarding plan of care Day 3 - Still with low oral intake but has been eating her high protein gelatin - Repeat procalcitonin negative - CTA of the chest performed and reported negative for pulmonary embolus - New finding of spiculated mass in upper left lobe - Has continued to require 3LPM on NC - Glucose trend 120-159 - Cognitive evaluation performed today, pending recommendations - [facility] is requesting 2 negative COVID tests prior to transfer back - No fever spikes - HR 69-76x' - BP 106-141/78-98 - SatO2> 91% on 3LPM - Had another conversation with daughter who indicated that they had a discussion and had decided not to proceed with any diagnostic interventions regarding new lung mass - I explained that I do not think her is imminent but that she would be transferred back to [facility] and they could talk to her PCP about more options - Glucose trend 120-159 - Patient Instructions Diet: Heart Healthy Diet, Diabetic Diet Diet, Other: high protein jello with meals Fluid Restriction: 2000 mL Notify Provider of: Fever, Swelling and Redness, Nausea and/or Vomiting - Discharge Plan *PRESCRIPTION DRUG MONITORING PROGRAM REVIEWED*: Not Applicable *COPY OF PRESCRIPTION DRUG MONITORING REPORT IN PATIENT DEEPALI: Not Applicable Home Medications: Home Meds Lisinopril 10 mg PO QAM 05/26/16 [History] Diltiazem [Cardizem CD] 240 mg PO QAM 10/31/19 [History] Sertraline [Zoloft] 50 mg PO BEDTIME 10/31/19 [History] Bisacodyl [Laxative Suppository] 1 supp RECTAL DAILY PRN 03/27/20 [History] Celecoxib [CeleBREX] 100 mg PO QAM 03/27/20 [History] Furosemide [Lasix] 40 mg PO QAM 03/27/20 [History] Insulin Glarg,Human.Rec.Analog [Lantus] 15 units SQ BEDTIME 03/27/20 [History] Insulin Lispro [HumaLOG] 2 unit SUBCUT ACLUNCH 03/27/20 [History] Insulin Lispro [Humalog] 100 unit SQ TID 03/27/20 [History] Potassium Chloride 20 meq PO QAM 03/27/20 [History] traMADol [Ultram] 1 tab PO Q8HR PRN 03/27/20 [History] Oxygen Therapy Mode: Nasal Cannula Oxygen Flow Rate (L/min): 3 Forms: ED Department Discharge Referrals: Eduar Cheney MD [Primary Care Provider] - - Discharge Summary/Plan Comment DC Time >30 min.: Yes - General Info Date of Service: 03/31/20 Subjective Update: No complaints Slept OK Tolerating diet BM today - Patient Data Vitals - Most Recent: Last Vital Signs Temp 98.2 F 03/31/20 02:58 Pulse 85 03/31/20 02:58 Resp 19 03/31/20 02:58 BP 154/68 H 03/31/20 02:58 Pulse Ox 93 L 03/31/20 02:58 Weight - Most Recent: 61.961 kg - Exam Quality Assessment: Reports: Supplemental Oxygen General: Reports: Alert, No Acute Distress. Denies: Cooperative HEENT: Reports: Mucous Membr. Moist/[place] Neck: Reports: Supple. Denies: Lymphadenopathy Lungs: Reports: Decreased Breath Sounds. Denies: Normal Respiratory Effort, Crackles, Rales, Rhonchi, Rub, Stridor, Wheezing Cardiovascular: Reports: Regular Rate, Regular Rhythm. Denies: Murmurs, Gallops , Rubs GI/Abdominal Exam: Normal Bowel Sounds, Soft. No: Distended, Guarding, Rigid, Rebound, Tender Extremities: Other (Right leg Non-Tender, No Pedal Edema, Normal Capillary Refill) Skin: Reports: Warm, Dry, Intact Neurological: Reports: No New Focal Deficit Psy/Mental Status: Reports: Alert
[2020-03-31 08:08] VITALS: BP 161/93; PULSE 103
[2020-03-31] MEDS: Furosemide 40 MG Tab PO SCH (08:38)
[2020-03-31] MEDS: Insulin Lispro 100 Units/ML 3 ML Vial SUBCUT SCH ×2 (08:38→11:40)
[2020-03-31] MEDS: Aspirin 81 MG Tab.EC PO SCH (08:38)
[2020-03-31] MEDS: Diltiazem 240 MG Cap.ER PO SCH (08:38)
[2020-03-31] MEDS: Enoxaparin 40 MG/0.4 ML Syringe SUBCUT SCH (08:38)
[2020-03-31] MEDS: Potassium Chloride 20 MEQ Tab.ER PO SCH (08:38)
[2020-03-31] MEDS: Celecoxib 100 MG Cap PO SCH (08:38)
== END 2020-03-31 12:26 | DRG 871 ==
LOC: JD.ED 10:08 → JD.MS 13:23
PROVIDERS: ADMIT Internal Medicine; ATTEND Internal Medicine
DX: A41.9 Sepsis, unspecified organism (principal); I48.91 Unspecified atrial fibrillation; J96.21 Acute and chronic respiratory failure with hypoxia; N17.9 Acute kidney failure, unspecified; I73.9 Peripheral vascular disease, unspecified; E87.0 Hyperosmolality and hypernatremia; E78.00 Pure hypercholesterolemia, unspecified; Z20.828 Contact with and (suspected) exposure to other viral communicable diseases; Z66 Do not resuscitate; I10 Essential (primary) hypertension; F41.9 Anxiety disorder, unspecified; F32.9 Major depressive disorder, single episode, unspecified; E11.9 Type 2 diabetes mellitus without complications; M19.90 Unspecified osteoarthritis, unspecified site; Z89.9 Acquired absence of limb, unspecified; E11.51 Type 2 diabetes mellitus with diabetic peripheral angiopathy without gangrene; G30.9 Alzheimer's disease, unspecified; F02.80 Dementia in other diseases classified elsewhere, unspecified severity, without behavioral disturbance, psychotic disturbance, mood disturbance, and anxiety; J44.9 Chronic obstructive pulmonary disease, unspecified; K21.9 Gastro-esophageal reflux disease without esophagitis; I48.0 Paroxysmal atrial fibrillation; E78.5 Hyperlipidemia, unspecified; R91.8 Other nonspecific abnormal finding of lung field; E87.6 Hypokalemia; Z79.82 Long term (current) use of aspirin; Z79.899 Other long term (current) drug therapy; Z79.4 Long term (current) use of insulin; Z86.14 Personal history of Methicillin resistant Staphylococcus aureus infection
CPT/HCPCS: 36415; 36600; 51702; 71045; 80053; 81001; 82570; 82728; 82803; 83036; 83605; 84145; 84156; 84300; 85025; 85379; 86140; 86738; 87040 ×2; 96361; 96365; 99285; J0696; J7050; J7120; U0002; 71275; 71275-26; 80048; 82962; 83735; 84100; 92523-GN; 94760; 94761; 99222; 99231; 99239; A9270-GY; J1650; J1815-GY; J1956; J2543; J3370; J3475; J3480; J7040; J7121; Q9967

== ENCOUNTER 2020-04-08 12:37 | Emergency (ER) | payer MEDICARE, OTHER, MEDICAID ==
[2020-04-08 12:48] VITALS: BP 173/77; PULSE 107
[2020-04-08] MEDS ORDERED: Acetaminophen 325 MG Tab PO ONE (12:55)
[2020-04-08] MEDS ORDERED: Sodium Chloride 0.9% 1,000 ML IV SCH (13:00)
--- NOTE | 2020-04-08 13:00 | EDM.PDOC ---
ED HPI GENERAL MEDICAL PROBLEM - General Chief Complaint: Respiratory Problem Stated Complaint: [facility] Time Seen by Provider: 04/08/20 12:40 Source of Information: Reports: Patient, Halfway Records History Limitations: Reports: Physical Impairment ( She is s very ill. She nods her head but does not communicate verbally very much.) - History of Present Illness INITIAL COMMENTS - FREE TEXT/NARRATIVE: 84-year-old female Jonas to the ED per [place] [facility] from [facility]. Currently she developed a fever of 102.4 degrees as reported by nursing staff sometime overnight. Patient is not very conversive. She denies any chills or Rigors. She states she did have breakfast this morning. She is on insulin type II diabetic . 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 She has known cardiac disease with aortic stenosis. As far she can remember she has not received any medication for fever relief the today. Denies any nausea vomiting or diarrhea. Denies any dysuria urgency or frequency although she has had urinary tract infections in the past she apparently does have a mild nonproductive cough but I did not hear her cough. Onset: Today, Sudden Onset Date: 04/08/20 Duration: Hour(s):, Getting Worse Location: Reports: Chest (. Mild nonproductive sounding cough), Generalized ( High fever and generalized weakness) Quality: Reports: Ache (Neurolysed myalgia) Severity: Severe Improves with: Reports: None Worsens with: Reports: None Context: Reports: Other (Patient resides in a local prison and apparently 1 of the staff members was identified to be COVID positive on screening last week.). Denies: Activity, Exercise, Lifting, Sick Contact, Trauma Associated Symptoms: Reports: Cough, Fever/Chills, Loss of Appetite, Malaise ( Nonproductive), Shortness of Breath, Weakness. Denies: Confusion, Chest Pain, cough w sputum, Diaphoresis, Nausea/Vomiting Treatments PAPER COLORER: Reports: Other (see below) (Denies taking any medicines other than her regular medicines today.) - Related Data Allergies Allergy/AdvReac Type Severity Reaction Status Date / Time No Known Allergies Allergy Verified 04/08/20 12:48 Home Meds: Home Meds Lisinopril 20 mg PO QAM 05/26/16 [History] Diltiazem [Cardizem CD] 240 mg PO QAM 10/31/19 [History] Sertraline [Zoloft] 50 mg PO BEDTIME 10/31/19 [History] Bisacodyl [Laxative Suppository] 1 supp RECTAL DAILY PRN 03/27/20 [History] Celecoxib [CeleBREX] 100 mg PO QAM 03/27/20 [History] Furosemide [Lasix] 40 mg PO QAM 03/27/20 [History] Insulin Glarg,Human.Rec.Analog [Lantus] 15 units SQ BEDTIME 03/27/20 [History] Insulin Lispro [HumaLOG] 2 unit SUBCUT ACLUNCH 03/27/20 [History] Insulin Lispro [Humalog] 100 unit SQ TID 03/27/20 [History] Potassium Chloride 20 meq PO QAM 03/27/20 [History] traMADol [Ultram] 1 tab PO Q8HR PRN 03/27/20 [History] Acetaminophen [Tylenol] 650 mg RECTAL Q4H PRN 04/08/20 [History] Past Medical History HEENT History: Reports: Impaired Vision Cardiovascular History: Reports: Afib, High Cholesterol, Hypertension, PVD Respiratory History: Reports: COPD Gastrointestinal History: Reports: GERD Other Gastrointestinal History: incont of stool Genitourinary History: Reports: Other (See Below) Other Genitourinary History: Incont of urine WIRE WORKER History: Reports: Other WIRE WORKER History: Confused Musculoskeletal History: Reports: Osteoarthritis Neurological History: Reports: Alzheimers Disease Other Neuro History: Patient confused Psychiatric History: Reports: Anxiety, Depression Endocrine/Metabolic History: Reports: Diabetes, Type II Other Endocrine/Metabolic History: Diabetic Keto Acidosis Other Hematologic History: Confused - Infectious Disease History Infectious Disease History: Reports: MRSA Other Infectious Disease History: MRSA + 11/01/19 - Past Surgical History Musculoskeletal Surgical History: Reports: Amputation Social & Family History - Family History Family Medical History: Unobtainable Oncologic: Reports: Prostate - Caffeine Use Caffeine Use: Reports: None Caffeine Use Comment: 2 cups per day - Living Situation & Occupation Living situation: Reports: , with Spouse Occupation: Retired ED ROS GENERAL - Review of Systems Review Of Systems: See Below Constitutional: Reports: Fever, Malaise, Weakness, Fatigue, Decreased Appetite. Denies: Chills HEENT: Reports: Glasses. Denies: Throat Pain Respiratory: Reports: Shortness of Breath, Cough. Denies: Wheezing, Pleuritic Chest Pain, Sputum, Hemoptysis (Nonproductive), Other Cardiovascular: Reports: Blood Pressure Problem, Dyspnea on Exertion. Denies: Chest Pain, Claudication, Edema, Lightheadedness, Orthopnea, Palpitations Endocrine: Reports: Fatigue GI/Abdominal: Reports: Decreased Appetite : Reports: Frequency Musculoskeletal: Reports: Muscle Pain (Lysed myalgia) Skin: Reports: No Symptoms Neurological: Reports: Headache, Weakness, Other (Valencia is wheelchair-bound due to a right below hip amputation from peripheral vascular disease). Denies: Confusion, Dizziness, Numbness, Pre-Existing Deficit, Syncope (Mild headache), Tingling, Tremors, Trouble Speaking, Difficulty Walking, Change in Speech Psychiatric: Reports: No Symptoms Hematologic/Lymphatic: Reports: No Symptoms Immunologic: Reports: No Symptoms ED EXAM, GENERAL - Physical Exam Exam: See Below Exam Limited By: Physical Impairment (And nods her head but does not easily answer questions verbally.) General Appearance: Alert, Lethargic (Peers acutely ill and she is extremely warm to palpation part.), Moderate Distress Eye Exam: Bilateral Eye: Normal Inspection, PERRL (No scleral icterus or blepharal pallor.) Ears: Normal TMs Throat/Mouth: Normal Inspection, Normal Oropharynx, Other (Tongue is mildly dry) Head: Atraumatic, Normocephalic Neck: Normal Inspection, Supple, Carotid Bruit (Right-sided carotid bruit secondary to aortic stenosis that is transmitted to the right carotid artery.), Tender Lateral. No: Lymphadenopathy (L), Lymphadenopathy (R) Respiratory/Chest: Lungs Clear, No Accessory Muscle Use, Respiratory Distress, Decreased Breath Sounds (Kidney at rest), Other (2 sats are 96% on room air). No: Rales, Rhonchi ( and his breath sounds to both lung bases bilaterally), Wheezing Cardiovascular: Tachycardia (His tachycardia), Systolic Murmur (2 out of 6 holosystolic murmur best heard at the left lateral sternal border transmitted to the right carotid artery compatible with aortic stenosis.). No: Normal Peripheral Pulses Peripheral Pulses: 0: Posterior Tibial (R), Dorsalis Pedis (R), 1+: Posterior Tibial (L), Dorsalis Pedis (L), 2+: Carotid (L), Carotid (R), Radial (L), Radial (R), Femoral (L), Femoral (R) GI/Abdominal: No Organomegaly ( He distended to be to percussion in the epigastrium combined with mild aerophagia.), No Mass, Distended ( 4 quadrants.) , Abnormal Bowel Sounds (Sounds are fairly quiesced sent in all), Other ( Obvious surgical scars appreciated.). No: Guarding, Rigid, Rebound Extremities: Normal Inspection. No: Normal Range of Motion Neurological: Alert, Oriented, CN II-XII Intact, Normal Cognition, No Motor/ Sensory Deficits (Can move all limbs although of course she has an amputation below hip on the right side.). No: Normal Gait Psychiatric: Flat Affect, Other (Is very ill.) Skin Exam: Warm, Dry, Intact, Normal Color, No Rash EKG INTERPRETATION EKG Date: 04/08/20 Time: 13:46 Rhythm: Other (Sinus tachycardia) Rate (Beats/Min): 108 [place]: Normal P-Wave: Present QRS: Other (Early R wave transition suggestive of right ventricular hypertrophy pattern.) ST-T: Other (There is mild ST segment depression V2 to V6 and lead I. Consider anterolateral ischemia. T wave inverted aVL nonspecific finding) QT: Prolonged (Mildly prolonged) Course - Vital Signs Last Recorded V/S: Last Vital Signs Temp 39.3 C H 04/08/20 13:40 Pulse 107 H 04/08/20 12:45 Resp 22 H 04/08/20 12:45 BP 173/77 H 04/08/20 12:45 Pulse Ox 96 04/08/20 12:45 - Orders/Labs/Meds Orders: Active Orders 24 hr Category Date Time Status EKG Documentation Completion [RC] STAT Care 04/08/20 12:56 Active CULTURE BLOOD [BC] Stat Lab 04/08/20 13:20 Received CULTURE BLOOD [BC] Stat Lab 04/08/20 13:25 Received Sodium Chloride 0.9% [Normal Saline] 1,000 ml Med 04/08/20 13:00 Active IV ASDIRECTED Blood Culture x2 Reflex Set [OM.PC] Stat Oth 04/08/20 12:57 Ordered Medication Orders Sodium Chloride (Normal Saline) 1,000 mls @ 150 mls/hr IV ASDIRECTED CORRIE Last Admin: 04/08/20 13:40 Dose: 150 mls/hr Labs: Laboratory Tests 04/08/20 04/08/20 04/08/20 Range/Units 12:50 12:50 12:50 WBC 17.78 H (3.98-10.04) K/mm3 RBC 4.94 (3.98-5.22) M/mm3 Hgb 14.4 D (11.2-15.7) gm/dl Hct 46.8 H (34.1-44.9) % MCV 94.7 (79.4-94.8) fl MCH 29.1 (25.6-32.2) pg MCHC 30.8 L (32.2-35.5) g/dl RDW Std Deviation 50.7 H (36.4-46.3) fL Plt Count 313 D (182-369) K/mm3 MPV 13.2 H (9.4-12.3) fl Neutrophils % (Manual) 85 H (40-60) % Band Neutrophils % 0 (0-10) % Lymphocytes % (Manual) 9 L (20-40) % Atypical Lymphs % 0 % Monocytes % (Manual) 6 (2-10) % Eosinophils % (Manual) 0 L (0.7-5.8) % Basophils % (Manual) 0 L (0.1-1.2) Toxic Granulation 2+ moderate Platelet Estimate Adequate Plt Morphology Comment See note RBC Morph Comment Normal ESR (0-20) mm/hr PT 10.9 (9.7-12.0) SECONDS INR 1.00 APTT 28 (22-31) SECONDS D-Dimer, Quantitative (0.19-0.50) mg/L Sodium 151 H (136-145) mEq/L Potassium 4.2 (3.5-5.1) mEq/L Chloride 106 (98-107) mEq/L Carbon Dioxide 38 H (21-32) mEq/L Anion Gap 11.2 (5-15) BUN 43 H D (7-18) mg/dL Creatinine 1.1 H (0.55-1.02) mg/dL Est Cr Clr Drug Dosing TNP Estimated GFR (MDRD) 48 (>60) mL/min BUN/Creatinine Ratio 39.1 H (14-18) Glucose 248 H (83-115) mg/dL Lactic Acid (0.4-2.0) mmol/L Calcium 10.5 H D (8.5-10.1) mg/dL Magnesium 2.1 (1.8-2.4) mg/dl Ferritin (8-252) ng/ml Total Bilirubin 0.2 (0.2-1.0) mg/dL AST 87 H (15-37) U/L ALT 37 (14-59) U/L Alkaline Phosphatase 115 (46-116) U/L Lactate Dehydrogenase 341 H (81-234) U/L CK-MB (CK-2) (0-3.6) ng/ml Troponin I 25.642 H* (0.00-0.056) ng/mL C-Reactive Protein 15.6 H* (<1.0) mg/dL NT-Pro-B Natriuret Pep (0-450) pg/mL Total Protein 8.4 H (6.4-8.2) g/dl Albumin 3.0 L (3.4-5.0) g/dl Globulin 5.4 gm/dL Albumin/Globulin Ratio 0.6 L (1-2) Urine Color (Yellow) Urine Appearance (Clear) Urine pH (5.0-8.0) Ur Specific [place] (1.005-1.030) Urine Protein (Negative) Urine Glucose (UA) (Negative) Urine Ketones (Negative) Urine Occult Blood (Negative) Urine Nitrite (Negative) Urine Bilirubin (Negative) Urine Urobilinogen (0.2-1.0) Ur Leukocyte Esterase (Negative) U Hyaline Cast (Auto) (0-5) /lpf Urine RBC (0-5) /hpf Urine WBC (0-5) /hpf Ur Epithelial Cells (0-5) /hpf Urine Bacteria (FEW) /hpf Urine Mucus (FEW) /hpf SARS Virus RNA (PCR) (NEGATIVE) 04/08/20 04/08/20 04/08/20 Range/Units 12:50 12:50 12:50 WBC (3.98-10.04) K/mm3 RBC (3.98-5.22) M/mm3 Hgb (11.2-15.7) gm/dl Hct (34.1-44.9) % MCV (79.4-94.8) fl MCH (25.6-32.2) pg MCHC (32.2-35.5) g/dl RDW Std Deviation (36.4-46.3) fL Plt Count (182-369) K/mm3 MPV (9.4-12.3) fl Neutrophils % (Manual) (40-60) % Band Neutrophils % (0-10) % Lymphocytes % (Manual) (20-40) % Atypical Lymphs % % Monocytes % (Manual) (2-10) % Eosinophils % (Manual) (0.7-5.8) % Basophils % (Manual) (0.1-1.2) Toxic Granulation Platelet Estimate Plt Morphology Comment RBC Morph Comment ESR 94 H (0-20) mm/hr PT (9.7-12.0) SECONDS INR APTT (22-31) SECONDS D-Dimer, Quantitative 1.85 H (0.19-0.50) mg/L Sodium (136-145) mEq/L Potassium (3.5-5.1) mEq/L Chloride (98-107) mEq/L Carbon Dioxide (21-32) mEq/L Anion Gap (5-15) BUN (7-18) mg/dL Creatinine (0.55-1.02) mg/dL Est Cr Clr Drug Dosing Estimated GFR (MDRD) (>60) mL/min BUN/Creatinine Ratio (14-18) Glucose (83-115) mg/dL Lactic Acid (0.4-2.0) mmol/L Calcium (8.5-10.1) mg/dL Magnesium (1.8-2.4) mg/dl Ferritin 97 (8-252) ng/ml Total Bilirubin (0.2-1.0) mg/dL AST (15-37) U/L ALT (14-59) U/L Alkaline Phosphatase (46-116) U/L Lactate Dehydrogenase (81-234) U/L CK-MB (CK-2) (0-3.6) ng/ml Troponin I (0.00-0.056) ng/mL C-Reactive Protein (<1.0) mg/dL NT-Pro-B Natriuret Pep (0-450) pg/mL Total Protein (6.4-8.2) g/dl Albumin (3.4-5.0) g/dl Globulin gm/dL Albumin/Globulin Ratio (1-2) Urine Color (Yellow) Urine Appearance (Clear) Urine pH (5.0-8.0) Ur Specific [place] (1.005-1.030) Urine Protein (Negative) Urine Glucose (UA) (Negative) Urine Ketones (Negative) Urine Occult Blood (Negative) Urine Nitrite (Negative) Urine Bilirubin (Negative) Urine Urobilinogen (0.2-1.0) Ur Leukocyte Esterase (Negative) U Hyaline Cast (Auto) (0-5) /lpf Urine RBC (0-5) /hpf Urine WBC (0-5) /hpf Ur Epithelial Cells (0-5) /hpf Urine Bacteria (FEW) /hpf Urine Mucus (FEW) /hpf SARS Virus RNA (PCR) (NEGATIVE) 04/08/20 04/08/20 04/08/20 Range/Units 12:50 12:50 13:25 WBC (3.98-10.04) K/mm3 RBC (3.98-5.22) M/mm3 Hgb (11.2-15.7) gm/dl Hct (34.1-44.9) % MCV (79.4-94.8) fl MCH (25.6-32.2) pg MCHC (32.2-35.5) g/dl RDW Std Deviation (36.4-46.3) fL Plt Count (182-369) K/mm3 MPV (9.4-12.3) fl Neutrophils % (Manual) (40-60) % Band Neutrophils % (0-10) % Lymphocytes % (Manual) (20-40) % Atypical Lymphs % % Monocytes % (Manual) (2-10) % Eosinophils % (Manual) (0.7-5.8) % Basophils % (Manual) (0.1-1.2) Toxic Granulation Platelet Estimate Plt Morphology Comment RBC Morph Comment ESR (0-20) mm/hr PT (9.7-12.0) SECONDS INR APTT (22-31) SECONDS D-Dimer, Quantitative (0.19-0.50) mg/L Sodium (136-145) mEq/L Potassium (3.5-5.1) mEq/L Chloride (98-107) mEq/L Carbon Dioxide (21-32) mEq/L Anion Gap (5-15) BUN (7-18) mg/dL Creatinine (0.55-1.02) mg/dL Est Cr Clr Drug Dosing Estimated GFR (MDRD) (>60) mL/min BUN/Creatinine Ratio (14-18) Glucose (83-115) mg/dL Lactic Acid 1.1 (0.4-2.0) mmol/L Calcium (8.5-10.1) mg/dL Magnesium (1.8-2.4) mg/dl Ferritin (8-252) ng/ml Total Bilirubin (0.2-1.0) mg/dL AST (15-37) U/L ALT (14-59) U/L Alkaline Phosphatase (46-116) U/L Lactate Dehydrogenase (81-234) U/L CK-MB (CK-2) 20.6 H (0-3.6) ng/ml Troponin I (0.00-0.056) ng/mL C-Reactive Protein (<1.0) mg/dL NT-Pro-B Natriuret Pep 8087 H (0-450) pg/mL Total Protein (6.4-8.2) g/dl Albumin (3.4-5.0) g/dl Globulin gm/dL Albumin/Globulin Ratio (1-2) Urine Color (Yellow) Urine Appearance (Clear) Urine pH (5.0-8.0) Ur Specific [place] (1.005-1.030) Urine Protein (Negative) Urine Glucose (UA) (Negative) Urine Ketones (Negative) Urine Occult Blood (Negative) Urine Nitrite (Negative) Urine Bilirubin (Negative) Urine Urobilinogen (0.2-1.0) Ur Leukocyte Esterase (Negative) U Hyaline Cast (Auto) (0-5) /lpf Urine RBC (0-5) /hpf Urine WBC (0-5) /hpf Ur Epithelial Cells (0-5) /hpf Urine Bacteria (FEW) /hpf Urine Mucus (FEW) /hpf SARS Virus RNA (PCR) (NEGATIVE) 04/08/20 04/08/20 Range/Units 13:40 13:40 WBC (3.98-10.04) K/mm3 RBC (3.98-5.22) M/mm3 Hgb (11.2-15.7) gm/dl Hct (34.1-44.9) % MCV (79.4-94.8) fl MCH (25.6-32.2) pg MCHC (32.2-35.5) g/dl RDW Std Deviation (36.4-46.3) fL Plt Count (182-369) K/mm3 MPV (9.4-12.3) fl Neutrophils % (Manual) (40-60) % Band Neutrophils % (0-10) % Lymphocytes % (Manual) (20-40) % Atypical Lymphs % % Monocytes % (Manual) (2-10) % Eosinophils % (Manual) (0.7-5.8) % Basophils % (Manual) (0.1-1.2) Toxic Granulation Platelet Estimate Plt Morphology Comment RBC Morph Comment ESR (0-20) mm/hr PT (9.7-12.0) SECONDS INR APTT (22-31) SECONDS D-Dimer, Quantitative (0.19-0.50) mg/L Sodium (136-145) mEq/L Potassium (3.5-5.1) mEq/L Chloride (98-107) mEq/L Carbon Dioxide (21-32) mEq/L Anion Gap (5-15) BUN (7-18) mg/dL Creatinine (0.55-1.02) mg/dL Est Cr Clr Drug Dosing Estimated GFR (MDRD) (>60) mL/min BUN/Creatinine Ratio (14-18) Glucose (83-115) mg/dL Lactic Acid (0.4-2.0) mmol/L Calcium (8.5-10.1) mg/dL Magnesium (1.8-2.4) mg/dl Ferritin (8-252) ng/ml Total Bilirubin (0.2-1.0) mg/dL AST (15-37) U/L ALT (14-59) U/L Alkaline Phosphatase (46-116) U/L Lactate Dehydrogenase (81-234) U/L CK-MB (CK-2) (0-3.6) ng/ml Troponin I (0.00-0.056) ng/mL C-Reactive Protein (<1.0) mg/dL NT-Pro-B Natriuret Pep (0-450) pg/mL Total Protein (6.4-8.2) g/dl Albumin (3.4-5.0) g/dl Globulin gm/dL Albumin/Globulin Ratio (1-2) Urine Color Light yellow (Yellow) Urine Appearance Clear (Clear) Urine pH 7.0 (5.0-8.0) Ur Specific [place] 1.020 (1.005-1.030) Urine Protein Negative (Negative) Urine Glucose (UA) Negative (Negative) Urine Ketones Negative (Negative) Urine Occult Blood Trace-intact H (Negative) Urine Nitrite Negative (Negative) Urine Bilirubin Negative (Negative) Urine Urobilinogen 0.2 (0.2-1.0) Ur Leukocyte Esterase Trace H (Negative) U Hyaline Cast (Auto) 5-10 H (0-5) /lpf Urine RBC 0-5 (0-5) /hpf Urine WBC 0-5 (0-5) /hpf Ur Epithelial Cells 5-10 H (0-5) /hpf Urine Bacteria Moderate H (FEW) /hpf Urine Mucus Few (FEW) /hpf SARS Virus RNA (PCR) Negative (NEGATIVE) Meds: Medications Generic Name Dose Route Start Last Admin Trade Name Freq PRN Reason Stop Dose Admin Sodium Chloride 1,000 mls @ 150 mls/hr 04/08/20 13:00 04/08/20 13:40 Normal Saline IV 150 mls/hr ASDIRECTED CORRIE Administration Discontinued Medications Generic Name Dose Route Start Last Admin Trade Name Freq PRN Reason Stop Dose Admin Acetaminophen 975 mg 04/08/20 12:55 04/08/20 13:40 Tylenol PO 04/08/20 12:56 975 mg NOW ONE Administration - Radiology Interpretation Free Text/Narrative:: 84-year-old female presents to the ED per [facility] from [facility] where she is a resident. Apparently she spiked a temperature of 102.4 degrees sometime in the last 12 hours. She is essentially almost nonverbal. She will nod her head and operate as much as she can with the examination and questions but nods her head versus verbalizing. She appears to be quite ill. Mild tachypnea with sustained O2 sats of 96%. Sinus tachycardia. Warm to palpation. Work-up will be commenced including COVID virus testing as well as serum ferritin, d-dimer, LDH. IV will be normal saline at 150 mils per hour. Patient has aortic stenosis and is an insulin- dependent diabetic. CODE STATUS is double checked and she is DO NOT RESUSCITATE DO NOT INTUBATE. - Re-Assessments/Exams Free Text/Narrative Re-Assessment/Exam: 04/08/20 14:44 Hematology reveals an elevated white count at 17.78. There is 85% neutrophils and no bands cells reported hemoglobin is 14.4 with hematocrit of 46.8 platelet count 313,000. There is a 2+ moderate correct toxic granulation pattern on the slide. PT is 10.9 with an INR of 1.0 d-dimer is elevated at 1.85. Sodium is elevated at 151 i.e. hypernatremic. Potassium is 4.2. Chloride is 106 with a bicarb of 38. Anion gap is 11.2. BUN is 43 with a creatinine of 1.1. Estimated GFR is 48 glucose is elevated at 248 of note she is a type II diabetic. Lactic acid is 1.1. Calcium is slightly elevated at 10.5. Magnesium is normal at 2.1. Ferritin is normal at 97 bilirubin is 0.2 with AST slightly elevated at 87. ALT is 37 and alk phosphatase is 115. LDH is elevated at 341. Troponin V is significantly elevated at 25.642 suggestive of myocardial infarction. C-reactive protein is elevated at 15.6. BNP is elevated at 8087. Total protein is 8.4 with an albumin fraction of 3.0. Her COVID 19 status is pending x-ray done portably reveals no obvious pneumonia. There is a poor inspirational film. There appears to be an artifact in the left lower lobe of the lung. Cardiac silhouette is normal. Chest x-ray done portably is of poor quality poor inspirational view. Lucent line right lateral lung field which is likely artifact. Cardiac silhouette is normal.. There appears to be an artifact in the left lower lobe of the lung field with something overlying her chest wall. There is mild diffuse vascular congestion pattern with no pleural effusion. There is no pneumonia. 04/08/20 15:06 Urinalysis shows trace occult blood. Trace leukocyte esterase 5- 10 hyaline casts. Negative RBCs and WBCs on the slide. Moderate bacteria appreciated. COVID testing came back negative. Did speak with Dr. Martinez on- call hospitalist and he will accept the patient to the [facility] floor and we will place her in a negative her room until we can absolutely confirm that she is not COVID positive. The test I believe is around 80% sensitive. Also infection is not obvious. Did not feel that CT in her abdomen at this time was going to be useful other than it may shed some light on potential source of an infection. We will leave the decision to treat with antibiotics with Dr. Martinez. 04/08/20 15:10: I did Speak with their daughter Nicole and indicated that her prognosis was extremely grave due to evidence of apparent massive myocardial infarction associated with acute febrile illness of unclear origin and severe hypernatremia. 04/08/20 15:33 CK- MB fraction also returned elevated at 20.6 indicating that myocardial infarction was recent likely within the last 24 hours. 04/08/20 15:59 with the family has been entered into with Dr. Martinez and the patient's daughter. Decision was made to allow her to return back to [facility] for compassionate terminal care versus coming into the hospital. Therefore we will have the patient transferred back to [facility] by ambulance Departure - Departure Time of Disposition: 15:10 Disposition: DC/Tfer to Custodial Care 63 Condition: Critical Clinical Impression: Acute febrile illness, Fever of unknown origin, Neutrophilic leukocytosis Myocardial infarction acute Qualifiers: Myocardial infarction type: non-ST elevation myocardial infarction Qualified Code(s): I21.4 - Non-ST elevation (NSTEMI) myocardial infarction Congestive heart failure Qualifiers: Heart failure type: combined systolic and diastolic Heart failure chronicity: acute on chronic Qualified Code(s): I50.43 - Acute on chronic combined systolic (congestive) and diastolic (congestive) heart failure - Discharge Information *PRESCRIPTION DRUG MONITORING PROGRAM REVIEWED*: Not Applicable *COPY OF PRESCRIPTION DRUG MONITORING REPORT IN PATIENT DEEPALI: Not Applicable Sepsis Event Note - Evaluation Sepsis Screening Result: Possible Sepsis Risk - Focused Exam Vital Signs: Vital Signs Temp Temp Pulse Resp BP Pulse Ox 04/08/20 13:40 39.3 C H 04/08/20 12:45 39.3 C H 107 H 22 H 173/77 H 96 Date Exam was Performed: 04/08/20 Time Exam was Performed: 15:59 - My Orders Last 24 Hours: My Active Orders 04/08/20 12:56 EKG Documentation Completion [RC] STAT 04/08/20 12:57 Blood Culture x2 Reflex Set [OM.PC] Stat 04/08/20 13:00 Sodium Chloride 0.9% [Normal Saline] 1,000 ml IV ASDIRECTED 04/08/20 13:20 CULTURE BLOOD [BC] Stat 04/08/20 13:25 CULTURE BLOOD [BC] Stat - Assessment/Plan Last 24 Hours: My Active Orders 04/08/20 12:56 EKG Documentation Completion [RC] STAT 04/08/20 12:57 Blood Culture x2 Reflex Set [OM.PC] Stat 04/08/20 13:00 Sodium Chloride 0.9% [Normal Saline] 1,000 ml IV ASDIRECTED 04/08/20 13:20 CULTURE BLOOD [BC] Stat 04/08/20 13:25 CULTURE BLOOD [BC] Stat
--- NOTE | 2020-04-08 13:32 | CR ---
Chest: Portable view of the chest was obtained. Comparison: Previous chest x-ray of 03/27/20. Heart size and mediastinum are normal for portable technique. Lungs show no acute parenchymal process. Lucency is noted along the right lateral chest wall which is most likely artifact, although difficult to completely exclude minimal pneumothorax. Surgical clips are seen within the right axillary region. Bony structures are osteopenic. Impression: 1. Minimal lucency along the right lateral chest wall most likely artifact but difficult to completely exclude a minimal pneumothorax. Please correlate with the patient's symptoms. If any clinical questions remain, expiratory study could be obtained. 2. Nothing acute is otherwise seen on portable chest x-ray. Diagnostic code #3 This report was dictated in MDT
== END 2020-04-08 16:48 ==
LOC: JD.ED 12:37 → UNDODISIN 15:12 → UNDOADMIN 15:12 → JD.MS 15:12 → JD.ED 16:48
DX: I11.0 Hypertensive heart disease with heart failure (principal); I50.43 Acute on chronic combined systolic (congestive) and diastolic (congestive) heart failure; I21.4 Non-ST elevation (NSTEMI) myocardial infarction; D72.828 Other elevated white blood cell count; I48.91 Unspecified atrial fibrillation; E78.00 Pure hypercholesterolemia, unspecified; E11.9 Type 2 diabetes mellitus without complications; F41.9 Anxiety disorder, unspecified; M19.90 Unspecified osteoarthritis, unspecified site; F32.9 Major depressive disorder, single episode, unspecified; E11.51 Type 2 diabetes mellitus with diabetic peripheral angiopathy without gangrene; Z79.899 Other long term (current) drug therapy; Z79.4 Long term (current) use of insulin
CPT/HCPCS: 36415; 71045; 71045-26; 80053; 81001; 82553; 82728; 83605; 83615; 83735; 83880; 84484; 85007; 85027; 85379; 85610; 85652; 85730; 86140; 87040; 93005; 96360; 96361; 99285-25; A9270-GY; J7030; U0002